=== PATIENT | male | born 1975 | race Caucasian/White ===

== ENCOUNTER → 2025-01-15 | Outpatient (CLI) | payer BC, SELFPAY ==
--- OUTSIDE RECORDS SUMMARY | 2025-01-15 09:18 | XMS RPT_ITS | CCD ---
Author Organization [facility] Care Team Providers Care Architecture Technician Name Role Phone ELLIOTT CUI Unavailable Unavailable Hiram Sykes MD Primary Care Provider [phone] Genia Rothman MD, Denzel Unavailable Onel BENAVIDES, Hiram Primary Care Provider Genia Rothman MD, Denzel Unavailable Onel BENAVIDES, Hiram Primary Care Provider [phone] Hiram Sykes MD Primary Care Provider Genia Rothman MD, Denzel Unavailable [facility], Enmanuel Unavailable Genia Rothman MD, Denzel Unavailable Genia Rothman MD, Denzel Unavailable HIRAM SYKES Primary Care Unavailable ONEL, HIRAM Primary Care Unavailable ONEL, HIRAM Primary Care Unavailable MARGIE SMITH Attending UnavailMARGIE Patrick Referring Unavailmandie e HIRAM SYKES Primary Care Unavailable BRIAN HAWLEY Admitting Unavailable BRIAN HAWLEY Attending Unavailable ONEL, HIRAM Primary Care Unavailable BRIAN HAWLEY Referring Unavailable HIRAM SYKES Primary Care Unavailable ONEL, HIRAM Primary Care Unavailable BRIAN HAWLEY Referring Unavailable NABILAUPMIKEY, HIRAM Primary Care Unavailable NABILAUPMIKEY, HIRAM Primary Care Unavailable BRIAN HAWLEY Referring Unavailable NABILAUPMIKEY, HIRAM Primary Care Unavailable ABBYBRIAN MORRISON Referring Unavailable BRIAN HAWLEY Attending Unavailable NABILAUPMIKEY, HIRAM Primary Care Unavailable ABYB, BRIAN Referring Unavailable KRUPITZER, HIRAM Primary Care Unavailable ABBY, BRIAN Referring Unavailable KRUPITZER, HIRAM Primary Care Unavailable ABBY, BRIAN Referring Unavailable ABBY, BRIAN Referring Unavailable KRUPITZER, HIRAM Primary Care Unavailable NO, PHYSICIAN Primary Care Unavailable SHARYN DANIELLE Attending Unavailable Hailey Zambrano MD Primary Care Provider CINDA BRENNAN Attending Unavailable JOLLIFF, HAILEY S Primary Care Unavailable JOLLIFF, HAILEY S Primary Care Unavailable JOLLIFF, HAILEY S Primary Care Unavailable PRATIMA REARDON Attending Unavailable PRATIMA REARDON Referring Unavailable ESTEPHANIA, AMNA Referring Unavailable JOLLIFF, HAILEY S Primary Care Unavailable JOLLIFF, HAILEY S Primary Care Unavailable PRATIMA REARDON Referring Unavailable Amelia BENAVIDES, Dr. Lacy Primary Care Provider [phone] Dr. Bambi Cisneros MD Referring Provider [facility] Attending Provider [phone] Amelia, Bambi Referring Unavailable Jannet Flannery Attending Unavailable [place], Bambi Primary Care Unavailable [place], Bambi Primary Care Unavailable Jannet Flannery Attending Unavailable [place], Bambi Referring Unavailable [place], Bambi Primary Care Unavailable Jannet Flannery Attending Unavailable [place], Bambi Referring Unavailable [place], Bambi Referring Unavailable Jannet Flannery Attending Unavailable [place], Bambi Primary Care Unavailable [place], Bambi Referring Unavailable Jannet Flannery Attending Unavailable Amelia, Bambi Primary Care Unavailable Allergies Allergy Classification Reported Allergen(s) Allergy Type Date of Onset Reaction(s) Facility (20 sources) Amoxicillin; Translations: [AMOXICILLIN] Drug Allergy 5 Unknown, Hives [facility] Other [place] [facility] (20 sources) metFORMIN; Translations: [METFORMIN] Drug Allergy 0 GI Upset [facility] Work Phone: Medications Current Medications Medication Drug Class(es) Dates Sig (Normalized) Sig (Original) aspirin 81 mg chewable tablet (20 sources) Platelet Aggregation Inhibitor, Nonsteroidal Anti-inflammatory Drug Start: 12-11-2022 take 1 tablet by mouth once daily Aspirin 81 mg tablet,chewable Active 81 mg PO DAILY December 11, 2022 12:00am Start: 11-20-2015 take 1 tablet by henri th once daily aspirin, enteric coated (ECOTRIN LOW STRENGTH) 81 mg EC tablet Take 1 tablet by mouth once daily. 0 11/20/2015 Active Comment on above: Take 1 tablet by henri th once daily. CPAP (20 sources) Start: 10-12-2019 CPAP Indicatio ns: RENETTA on CPAP BiPAP supplies including large mask, tubing and headgear for BiPAP Auto Remstar F10 machine 1 Device 10/12/2019 Active Start: 10-12-2019 CPAP Indicatio ns: RENETTA on CPAP BiPAP supplies including large mask, tubing and headgear for BiPAP Auto Remstar F10 machine 1 Device 0 10/12/2019 Active Comment on above: BiPAP supplies inclu ding large mask, tubing and headgear for BiPAP Auto Remstar F10 machine glimepiride 4 mg oral tablet (20 sources) Sulfonylurea Start: 3 End: take 1 tablet by mouth twice daily Glimepiride 4 mg tablet Active 4 mg PO TWICE A DAY 180 October 11, 2024 8:21am Start: 05-21-2021 End: 03-05-2022 take 1 tablet by mouth twice daily at mealtime glimepiride (AMARYL) 4 mg tablet Take 1 tablet by mouth twice daily with meals. 180 tablet 3 03/05/2022 Active take 1 tablet by henri th once daily before breakfast glimepiride (AMARYL) 2 MG tablet Take 1 tablet by mouth every morning (before breakfast) Active Comment on above: Take 1 tablet by henri th twice daily with meals. Insulin Degludec (Tresiba Flextouch U-100) 100 unit/mL (3 mL) insulin pen (3 sources) Start: 04-26-2024 Insulin Degludec (Tresiba Flextouch U-100) 100 unit/mL (3 mL) insulin pen Active 30 U SC AT BEDTIME April 26, 2024 9:39am Start: 03-26-2024 End: 04-26-2024 Insulin Degludec (Tresiba Fl extouch U-100) 100 unit/mL (3 mL) insulin pen Discontinued 15 U SC AT BEDTIME March 26, 2024 1:56pm April 26, 2024 9:40am Start: 06-16-2023 End: 03-26-2024 Insulin Degludec (Tresiba Fl extouch U-100) 100 unit/mL (3 mL) insulin pen Discontinued 15 U SC AT BEDTIME June 16, 2023 1:00am March 26, 2024 1:57pm 3 ml insulin glargine 100 unt/ml pen injector (3 sources) Insulin Analog Start: 08-30-2023 inject 18 [IU] by subcutaneous injection once daily at bedtime insulin glargine 100 unit/mL (3 mL) Inject 18 Units subcutaneously daily at bedtime. 08/30/2023 Active Comment on above: Inject 18 Units subcutaneously daily at bedtime. 3 ml insulin lispro 100 unt/ml pen injector (7 sources) Insulin Analog Start: 04-26-2024 End: 10-14-2024 Insulin Lispro (Humalog Kwikpen Insulin) 100 unit/mL insulin pen Active 40 U SC THREE TIMES A DAY October 14, 2024 11:57am Start: 08-30-2023 inject 6 [IU] by sub cutaneous injection before mealtime insulin lispro (HUMALOG U-100 INSULIN) 100 unit/mL injection 6 Units subcutaneously before meals. Give subcutaneous. + ISS 08/30/2023 Active Start: 08-28-2023 End: 04-26-2024 Insulin Lispro (Humalog Kwik pen Insulin) 100 unit/mL insulin pen Discontinued 20 U SC THREE TIMES A DAY March 26, 2024 1:56pm April 26, 2024 9:40am Comment on above: 6 Units subcutaneous ly before meals. Give subcutaneous. + ISS lisinopril 10 mg oral tablet (20 sources) Angiotensin Converting Enzyme Inhibitor Start: take 1 tablet by mouth twice daily Lisinopril 10 mg tablet Active 10 mg PO TWICE A DAY April 26, 2024 9:38am Start: 12-11-2022 End: 04-26-2024 take 1 tablet by mouth once daily Lisinopril 10 mg tablet Discontinued 10 mg PO DAILY March 26, 2024 1:56pm April 26, 2024 9:38am Start: 05-21-2021 End: 03-05-2022 take 1 tablet by mouth once daily lisinopril (ZESTRIL, PRINIVIL) 10 mg tablet Indications: Coronary artery disease involving lyt[place] coronary artery of lytton heart without angina pectoris Take 1 tablet by mouth once daily. 90 tablet 3 03/05/2022 Active Comment on above: Take 1 tablet by henri th once daily. take 1 tablet by henri th every day metFORMIN hydrochloride 500 mg oral tablet (20 sources) Biguanide Start: 12-11-2022 End: 07-29-2024 take 1 tablet by mouth twice daily Metformin 500 mg tablet Active 500 mg PO TWICE A DAY July 29, 2024 8:55am Start: 09-18-2022 take 1 tablet by henri th twice daily at mealtime, then take 4 tablets by mouth once daily metFORMIN ER (GLUCOPHAGE XR) 500 mg 24 hr tablet Take 1 tablet by mouth twice daily with meals. May gradually increase up to 4 tablets daily as tolerated. 180 tablet 3 09/18/2022 Active Start: 03-12-2022 End: 09-18-2022 take 1 tablet by mouth once daily metFORMIN ER (GLUCOPHAGE XR) 500 mg 24 hr tablet Take 1 tablet by mouth once daily. 90 tablet 3 08/20/2022 09/18/2022 Discontinued Comment on above: Take 1 tablet daily for 3-4 days. If tolerating well, gradually increase dose by 1 tablet every 3-4 days for goal dose of 4 tablets per day. Take with food. Take 1 tablet by henri th once daily. Take 500 mg by mouth daily with breakfast. Take 1 tablet by henri th twice daily with meals. May gradually increase up to 4 tablets daily as tolerated. rosuvastatin calcium 10 mg oral tablet (2 sources) HMG-CoA Reductase Inhibitor Start: 4 End: take 1 tablet by mouth once daily Rosuvastatin 10 mg tablet Active 10 mg PO daily October 14, 2024 11:55am Semaglutide (2 sources) Start: 5 Semaglutide (Ozempic) 0.25 mg or 0.5 mg (2 mg/3 mL) pen injector Active 0.5 mg SC EVERY WEEK July 29, 2024 12:00am Start: 12-11-2022 End: 03-13-2023 Semaglutide (Ozempic) 0.25 m g or 0.5 mg (2 mg/3 mL) pen injector Discontinued 0.5 mg SC EVERY WEEK 3 December 11, 2022 12:00am March 13, 2023 8:49am Completed/Discontinued Medications Medication Drug Class(es) Dates Sig (Normalized) Sig (Original) acetaminophen 500 mg oral tablet (2 sources) Start: 05-14-2024 End: 05-14-2024 take 4000 mg by mouth every twenty-four hours 1,000 mg, Oral, ONCE, 1 dose, On Fri05/14/24 at 0846, Maximum dose of acetaminophen is 4000 mg from all sources in 24 hours. Start: 08-28-2023 take 1 tablet by henri th once as needed Acetaminophen (Tylenol) 325 mg tablet Active 325 mg PO ONCE as needed August 28, 2023 12:00am acetaminophen 500 mg / diphenhydrAMINE hydrochloride 25 mg oral tablet (1 source) Histamine-1 Receptor Antagonist Start: 12-11-2022 End: 08-28-2023 Diphenhydramine-Acetaminophe n (Tylenol Pm Extra Strength) 25-500 mg tablet Discontinued 1 {tbl} PO AT BEDTIME as needed December 11, 2022 12:00am August 28, 2023 9:35am atorvastatin 20 mg oral tablet (20 sources) HMG-CoA Reductase Inhibitor Start: 05-21-2021 End: 04-26-2024 take 1 tablet by mouth once daily Atorvastatin 20 mg tablet Discontinued 20 mg PO DAILY 90 March 26, 2024 1:56pm April 26, 2024 9:31am Comment on above: Take 1 tablet by henri th once daily. take 1 tablet by henri th every day atropine sulfate 0.025 mg / diphenoxylate hydrochloride 2.5 mg oral tablet (13 sources) Anticholinergic , Cholinergic Muscarinic Antagonist, Antidiarrheal Start: 09-11-2022 End: 04-21-2023 take 1 tablet by mouth every six hours as needed for diarrhea and diarrhea diphenoxylate-atropine (LOMOTIL) 2.5-0.025 mg per tablet Indications: Diarrhea, unspecified type Take 1 tablet by mouth four times daily as needed for diarrhea for up to 30 days. 10 tablet 0 09/11/2022 04/21/2023 Discontinued Comment on above: Take 1 tablet by henri th four times daily as needed for diarrhea for up to 30 days. Blood-Glucose Meter (ONETOUCH ULTRAMINI) monitoring kit (20 sources) Start: 10-27-2019 End: 04-21-2023 Blood-Glucose Meter (ONETOUC H ULTRAMINI) monitoring kit Use to check blood sugars twice daily or as directed. 1 Each 0 10/27/2019 04/21/2023 Discontinued Start: 10-27-2019 Blood-Glucose Meter (ONETOUCH ULTRAMINI) monitoring kit Use to check blood sugars twice daily or as directed. 1 Each 0 10/27/2019 Active Comment on above: Use to check blood s ugars twice daily or as directed. Blood-Glucose Sensor (Dexcom G7 Sensor) device (1 source) Start: 3 End: 3 Blood-Glucose Sensor (Dexcom G7 Sensor) device Discontinued 0 .Route 3 December 11, 2022 12:00am March 13, 2023 8:47am 1 sensor q 10 days Blood-Glucose Sensor (Freestyle Ravi 3 Sensor) device (1 source) Start: 3 End: 4 Blood-Glucose Sensor (Freestyle Ravi 3 Sensor) device Discontinued 0 .Route 2 March 13, 2023 12:00am August 28, 2023 4:24pm 1 sensor q 14 days cetirizine hydrochloride 10 mg oral tablet (20 sources) Histamine-1 Receptor Antagonist Start: 6 End: 4 take 1 tablet by mouth once daily as needed Cetirizine (Zyrtec) 10 mg tablet Discontinued 10 mg PO DAILY as needed December 11, 2022 12:00am November 06, 2023 8:30am Comment on above: Take 1 tablet by henri th once daily. 0.5 ml dulaglutide 3 mg/ml auto-injector (14 sources) GLP-1 Receptor Agonist Start: 3 End: 3 Dulaglutide (Trulicity) 1.5 mg/0.5 mL pen injector Discontinued 1.5 mg SC EVERY WEEK December 11, 2022 12:00am March 13, 2023 8:49am Start: 07-16-2022 End: 08-20-2022 inject 1.5 mg by subcutaneous injection every week dulaglutide (TRULICITY) 1.5 mg/0.5 mL pen injector Inject 1.5 mg subcutaneously one time a week. 2 mL 5 07/16/2022 08/20/2022 Discontinued Start: 05-21-2022 End: 07-16-2022 inject 0.75 mg by subcutaneous injection every week dulaglutide (TRULICITY) 0.75 mg/0.5 mL pen injector Inject 0.75 mg subcutaneously one time a week. 2 mL 3 05/21/2022 07/16/2022 Discontinued Comment on above: Inject 0.75 mg subcu taneously one time a week. Inject 1.5 mg subcut aneously one time a week. dulaglutide (TRULICITY) 3 mg/0.5 mL pen injector (4 sources) Start: End: inject 3 mg by subcutaneous injection every week dulaglutide (TRULICITY) 3 mg/0.5 mL pen injector Inject 3 mg subcutaneously one time a week. 2 mL 3 08/29/2022 09/18/2022 Discontinued (Side Effects) Start: 08-29-2022 End: 09-28-2022 inject 3 mg by subcutaneous injection every week dulaglutide (TRULICITY) 3 mg/0.5 mL pen injector Inject 3 mg subcutaneously one time a week. 2 mL 3 08/29/2022 09/28/2022 Active Comment on above: Inject 3 mg subcutan eously one time a week. empagliflozin 25 mg oral tablet (1 source) Sodium-Glucose Cotransporter 2 Inhibitor Start: 03-13-20 End: 08-28-19 take 1 tablet by mouth once daily Empagliflozin (Jardiance) 25 mg tablet Discontinued 25 mg PO DAILY March 13, 2023 12:00am August 28, 2023 4:24pm 3 ml insulin detemir 100 unt/ml pen injector (16 sources) Insulin Analog Start: 12-12-19 End: 08-30-19 LEVEMIR FLEXPEN 100 unit/mL (3 mL) injection pen 15 units once daily at nighttime 0 12/11/2022 08/30/2023 Discontinued Comment on above: 15 units once daily at nighttime Insulin Detemir U-100 (Levemir Flexpen) 100 unit/mL (3 mL) insulin pen (2 sources) Start: 04-17-20 End: 06-16-19 Insulin Detemir U-100 (Levemir Flexpen) 100 unit/mL (3 mL) insulin pen Discontinued 15 U SC AT BEDTIME April 17, 2023 11:54am June 16, 2023 9:26am Start: 12-11-2022 End: 04-17-2023 Insulin Detemir U-100 (Levem ir Flexpen) 100 unit/mL (3 mL) insulin pen Discontinued 15 U SC AT BEDTIME December 11, 2022 12:00am April 17, 2023 11:54am iopamidol (ISOVUE-M 200) 41 % injection (1 source) Start: 06-14-2024 End: 06-14-2024 PRN, Starting on Fri06/14/24 at 1110, Until Fri06/14/24 at 1112, Intra-op 10 ml lidocaine hydrochloride 20 mg/ml injection (1 source) Antiarrhythmic, Amide Local Anesthetic Start: 06-14-2024 End: 06-14-2024 PRN, Starting on Fri06/14/24 at 1103, Until Fri06/14/24 at 1110, Intra-op OZEMPIC 0.25 mg or 0.5 mg (2 mg/3 mL) pen (16 sources) Start: 12-11-2022 End: 08-30-2023 OZEMPIC 0.25 mg or 0.5 mg (2 mg/3 mL) pen 0.5 mg once weekly 0 12/11/2022 08/30/2023 Discontinued Start: 12-11-2022 OZEMPIC 0.25 m g or 0.5 mg (2 mg/3 mL) pen 0.5 mg once weekly 0 12/11/2022 Active Comment on above: 0.5 mg once weekly semaglutide 7 mg oral tablet (9 sources) Start: 04-25-2023 End: 08-28-2023 take 1 tablet by mouth once daily Semaglutide (Rybelsus) 7 mg tablet Discontinued 7 mg PO DAILY April 25, 2023 1:00am August 28, 2023 4:24pm Start: 03-05-2022 inject 0.25 mg by liriano bcutaneous injection every week, then inject 0.5 mg by subcutaneous injection every week semaglutide (OZEMPIC) 0.25 mg or 0.5 mg(2 mg/1.5 mL) pen Indications: Uncontrolled type 2 diabetes mellitus with hyperglycemia (HCC) Inject 0.25 mg subcutaneously one time a week. For 1 month, then increase to 0.5 mg subcutaneously weekly 1 Each 2 03/05/2022 Active Start: 05-21-2021 End: 10-09-2021 inject 1 mg by subcutaneous injection every week semaglutide (OZEMPIC) 1 mg/dose (2 mg/1.5 mL) pen injector Inject 1 mg subcutaneously one time a week. 4.5 mL 3 05/21/2021 10/09/2021 Discontinued Comment on above: Inject 1 mg subcutan eously one time a week. Inject 0.25 mg subcu taneously one time a week. For 1 month, then increase to 0.5 mg subcutaneously weekly Semaglutide (1 source) Start: 03-13-2023 End: 04-25-2023 Semaglutide (Ozempic) 1 mg/dose (4 mg/3 mL) pen injector Discontinued 1 mg SC EVERY WEEK 3 March 13, 2023 12:00am April 25, 2023 4:19pm 5 ml sodium chloride 9 mg/ml injection (1 source) Start: 06-14-2024 End: 06-14-2024 PRN, Starting on Fri06/14/24 at 1113, Until Fri06/14/24 at 1112, Intra-op Start: 06-14-2024 End: 06-14-2024 PRN, Starting on Fri06/14/24 at 1113, Until Fri06/14/24 at 1112, Intra-op Problems Active Problems Problem Classification Problem Date Documented Da te Episodic/Chronic Cancer of kidney and renal pelvis (20 sources) Malignant tumor of kidney; Translations: [Malignant neoplasm of left kidney, except renal pelvis] Onset: 01-22-2016 01-22-2016 Chronic Conduction disorders (20 sources) H/O: cardiac pacemaker in situ; Translations: [Presence of cardiac pacemaker] Chronic Coronary atherosclerosis and other heart disease (20 sources) Coronary atherosclerosis; Translations: [Atherosclerotic heart disease of l[place] coronary artery without angina pectoris] Onset: 01-07-2018 Chronic Comment on above: x4 Diabetes mellitus with complications (20 sources) Type II diabetes mellitus uncontrolled; Translations: [Type 2 diabetes mellitus with hyperglycemia] Onset: 12-08-2015 Chronic Diabetes mellitus without complication (3 sources) Diabetes mellitus; Translations: [Type 2 diabetes mellitus without complications] Onset: 04-26-2024 12-11-2022 Chronic Disorders of lipid metabolism (2 sources) Hypercholesterolemi a; Translations: [Pure hypercholesterolemi a, unspecified] 04-28-2024 Chronic E Codes: Fall (2 sources) Fall; Translations: [Unspecified fall, initial encounter] Onset: 05-14-2024 05-14-2024 Episodic Essential hypertension (2 sources) Hypertensive disorder; Translations: [Essential (primary) hypertension] 03-13-2023 Chronic Other aftercare (1 source) Patient encounter status; Translations: [Other terminal operator (current) drug therapy] Episodic Other circulatory disease (20 sources) H/O: atrial fibrillation; Translations: [Personal history of other diseases of the circulatory system] Episodic Other gastrointestinal disorders (1 source) Diarrhea; Translations: [Diarrhea, unspecified] Episodic Other injuries and conditions due to external causes (2 sources) Food in esophagus causing other injury, initial encounter; Translations: [Food in esophagus causing other injury, initial encounter] Onset: 09-04-2023 Episodic Other injuries and conditions due to external causes (1 source) Injury of left shoulder; Translations: [Unspecified injury of left shoulder and upper arm, initial encounter] 05-14-2024 Episodic Other injuries and conditions due to external causes (1 source) Unspecified injury of left shoulder and upper arm, initial encounter; Translations: [Unspecified injury of left shoulder and upper arm, initial encounter] Onset: 05-14-2024 Episodic Other liver diseases (20 sources) Steatosis of liver; Translations: [Fatty (change of) liver, not elsewhere classified] Onset: 11-29-2015 11-29-2015 Chronic Other lower respiratory disease (1 source) Cough; Translations: [Cough] Onset: 04-02-2018 Episodic Other lower respiratory disease (1 source) Dyspnea, unspecified; Translations: [Dyspnea, unspecified] Onset: 04-02-2018 Episodic Other lower respiratory disease (1 source) Wheezing; Translations: [Wheezing] Onset: 04-02-2018 Episodic Other lower respiratory disease (2 sources) Cough; Translations: [Cough] 07-29-2024 Episodic Other nutritional; endocrine; and metabolic disorders (20 sources) Body mass index 40+ - severely obese; Translations: [Morbid (severe) obesity due to excess calories] Onset: 08-12-2017 08-12-2017 Chronic Other nutritional; endocrine; and metabolic disorders (2 sources) Obesity; Translations: [Obesity, unspecified] 12-11-2022 Chronic Other upper respiratory disease (1 source) Nasal congestion; Translations: [Nasal congestion] Onset: 04-02-2018 Episodic Residual codes; unclassified (20 sources) Obstructive sleep apnea syndrome; Translations: [Obstructive sleep apnea (adult) (pediatric)] Chronic Sprains and strains (4 sources) Strain of muscle(s) and tendon(s) of the rotator cuff of left shoulder, initial encounter; Translations: [Rotator cuff (capsule) sprain] Onset: 06-08-2024 06-14-2024 Episodic Unclassified (1 source) Other persistent atrial fibrillation; Translations: [Persistent atrial fibrillation (HCC)] Onset: 05-02-2023 Unclassified (1 source) Food entering into or through a natural orifice, initial encounter; Translations: [Food entering into or through a natural orifice, initial encounter] Onset: 09-04-2023 Viral infection (1 source) Viral disease; Translations: [Viral infection, unspecified] Episodic Past or Other Problems Problem Classification Problem Date Documented Da te Episodic/Chronic Genitourinary symptoms and ill-defined conditions (20 sources) Microscopic hematuria; Translations: [Other microscopic hematuria] Onset: 12-25-2015 12-25-2015 Episodic Neoplasms of unspecified nature or uncertain behavior (2 sources) Neoplasm of uncertain behavior of left kidney; Translations: [Neoplasm of uncertain behavior of left kidney] Onset: 12-25-2015 Resolved: 01-22-2016 01-22-2016 Episodic Other diseases of kidney and ureters (2 sources) Renal mass; Translations: [Other specified disorders of kidney and ureter] Resolved: 01-22-2016 01-22-2016 Chronic Other screening for suspected conditions (not mental disorders or infectious disease) (20 sources) Decreased testosterone level ; Translations: [Other specified abnormal findings of blood chemistry] Onset: 12-25-2015 Resolved: 02-13-2016 11-24-2018 Episodic Residual codes; unclassified (20 sources) History of nephrectomy; Translations: [Acquired absence of kidney] Onset: 03-16-2016 03-16-2016 Episodic Syncope (7 sources) Vasovagal syncope; Translations: [Syncope and collapse] Onset: 04-21-2023 Episodic Unclassified (1 source) Food entering into or through a natural orifice, initial encounter; Translations: [Food entering into or through a natural orifice, initial encounter] Onset: 09-04-2023 Results Test Name Value Interpretation Reference Range Facility Endocrinology Visit Reporton 11-04-2024 Endocrinology Visit Report [facility] [address] [place] [address] OFFICE VISIT Date of Service: 11/04/24 MR#: [id number] Acct: [id number] Name: MARGIE HAYNES Rep #: [id number] : 1975 Provider: JOSE ALEJANDRO smith Age/Sex: 49/M [place] [facility] [place] Status: Signed Intake Vital Signs 07/29/24 08:18 11/04/24 08:36 Height 5 ft 8 in 5 ft 8 in Weight: 283 lb 8 oz 271 lb 4 oz BMI 43.1 41.2 BP 148/99 H 135/87 H Blood Pressure Location Rt brachial Rt brachial Position Sitting Sitting Pulse 81 85 Pulse Source Monitor Monitor Pulse Oximetry (%) 96 96 Oxygen Delivery Method room air room air Intake Visit Reasons: 3 M FU Chief Complaint: f/u diabetes Is patient in pain?: No Allergies amoxicillin Allergy (Intermediate, Verified 11/04/24 08:40) Rash Medications ???Medication ???Instructions ???Recorded ???Confirmed ???Type aspirin 81 mg chewable tablet 81 mg PO DAILY 12/11/22 11/04/24 H istory pen needle, diabetic 32 gauge x #100 ea 12/11/22 11/04/24 Rx 5/32 (BD Ultra-Fine Sanna Pen Needle) acetaminophen 325 mg tablet 325 mg PO ONCE PRN 08/28/23 History (Tylenol) blood sugar diagnostic (OneTouch #100 ea 08/28/23 11/04/24 Rx Ultra Test strips) cetirizine 10 mg tablet (Zyrtec) 10 mg PO DAILY 11/06/23 11/04/24 H istory insulin degludec 100 unit/mL (3 30 unit (0.3 mL) subcut QHS #27 mL 04/26/24 11/04/24 Rx mL) subcutaneous pen (Tresiba FlexTouch U-100 insulin) lisinopril 10 mg tablet 10 mg PO BID #180 tabs 04/26/24 Rx pen needle, diabetic 32 gauge x #100 ea 07/20/24 11/04/24 Rx 5/32 (BD Ultra-Fine Sanna Pen Needle) metformin 500 mg tablet 500 mg PO BID #180 tabs 07/29/24 0 11/04/24 Rx semaglutide 0.25 mg or 0.5 mg (2 0.5 mg (0.736 mL) subcut QWEEK #3 07/29/24 11/04/24 Rx mg/3 mL) subcutaneous pen injector mL (Ozempic) glimepiride 4 mg tablet 4 mg PO BID #180 tabs 10/11/24 Rx insulin lispro 100 unit/mL 40 unit (0.4 mL) subcut TID #105 m L 10/14/24 11/04/24 Rx subcutaneous pen (Humalog KwikPen (U-100) Insulin) rosuvastatin 10 mg tablet 10 mg PO QDAY #30 tabs 10/14/24 Rx PFSH Medical History Seasonal allergies History of kidney cancer Surgical History H/O tympanostomy H/O adenoidectomy History of nephrectomy History of permanent cardiac pacemaker placement History of appendectomy Family History Mother Asthma Cervical cancer Ovarian cancer Cancer intestinal Father Parkinson disease Grandmother Diabetes Hypertension Cancer pancreatic Grandfather Cancer Prostate Brother Hypertension Diabetes CVA (cerebral vascular accident) Uncle Diabetes Grandmother Cancer leukemia Grandfather Myocardial infarction Uncle Diabetes Sister Cancer bone cancer Social History adopted: No household members: spouse number of children: 3 current occupational status: employed current occupation: [employer] pets and animals: Yes pets and animals: cat(s) Smoking Status: Never smoker Electronic Cigarette Use: not used alcohol intake: current alcohol intake frequency: a few times a month substance use type: does not use diet: gluten free caffeine: Yes (4) Type: carbonated beverages and coffee what type of physical activity do you participate in: none frequency: daily seatbelt use: always do you feel safe at home: Yes HPI HPI Chief Complaint: f/u diabetes Details: MARGIE HAYNES, is a 49 M who presents to the office today for evaluation and management of diabetes. A1C today is 10.1%, increased from 07/29/24 at 9.6%. He has lost 12 lbs since that time. He has significantly reduced his food volume. He is upset that his blood sugars have not improved despite his diet. Currently taking Tresiba 24 u once daily and Humalog 24 u TIDCM +SSI; however, he is typically is only eating one meal a day and is not taking Humalog outside of that. He is not addressing elevations. Additionally he is taking glimepiride 4 mg BID and metformin 500 mg BID with food. He continues to have issues with diarrhea with metformin use. He stopped using his CGM as it was all over the place. He would compare CGM readings to finger stick readings in real time. He states I'm about ready to just give up. He admits that he has a lot of anger regarding his diabetes, this is also affecting his marriage. He is upset that he is expected to check his blood sugar 4+ x/day. He is upset that his insurance is not covering more of his diabetic medications/supplies. (more content not included)... Normal [facility] Endocrinology Visit Reporton 07-29-2024 Endocrinology Visit Report [facility] [address] [place] [address] OFFICE VISIT Date of Service: 07/29/24 MR#: [id number] Acct: [id number] Name: MARGIE HAYNES Rep #: [id number] : 1975 Provider: JOSE ALEJANDRO smith Age/Sex: 49/M Location: [facility] Status: Signed Intake Vital Signs 04/26/24 08:09 07/29/24 08:18 Height 5 ft 8 in 5 ft 8 in Weight: 280 lb 283 lb 8 oz BMI 42.5 43.1 BP 139/91 H 148/99 H Blood Pressure Location Lt brachial Rt brachial Position Sitting Sitting Pulse 75 81 Pulse Source Monitor Monitor Pulse Oximetry (%) 95 96 Oxygen Delivery Method room air room air Intake Visit Reasons: 3 M FU Chief Complaint: f/u diabetes Allergies amoxicillin Allergy (Intermediate, Verified 07/29/24 08:22) Rash Medications ???Medication ???Instructions ???Recorded ???Confirmed ???Type aspirin 81 mg chewable tablet 81 mg PO DAILY 12/11/22 07/29/24 H istory pen needle, diabetic 32 gauge x #100 ea 12/11/22 07/29/24 Rx 5/32 (BD Ultra-Fine Sanna Pen Needle) acetaminophen 325 mg tablet 325 mg PO ONCE PRN 08/28/23 History (Tylenol) blood sugar diagnostic (OneTouch #100 ea 08/28/23 07/29/24 Rx Ultra Test strips) cetirizine 10 mg tablet (Zyrtec) 10 mg PO DAILY 11/06/23 07/29/24 H istory glimepiride 4 mg tablet 4 mg PO BID #180 tabs 03/26/24 Rx insulin degludec 100 unit/mL (3 30 unit (0.3 mL) subcut QHS #27 mL 04/26/24 07/29/24 Rx mL) subcutaneous pen (Tresiba FlexTouch U-100 insulin) insulin lispro 100 unit/mL 40 unit (0.4 mL) subcut TID #108 m L 04/26/24 07/29/24 Rx subcutaneous pen (Humalog KwikPen (U-100) Insulin) lisinopril 10 mg tablet 10 mg PO BID #180 tabs 04/26/24 Rx rosuvastatin 10 mg tablet 10 mg PO QDAY #30 tabs 04/26/24 Rx pen needle, diabetic 32 gauge x #100 ea 07/20/24 07/29/24 Rx 5/32 (BD Ultra-Fine Sanna Pen Needle) metformin 500 mg tablet 500 mg PO BID #180 tabs 07/29/24 0 07/29/24 Rx semaglutide 0.25 mg or 0.5 mg (2 0.5 mg (0.736 mL) subcut QWEEK #3 07/29/24 07/29/24 Rx mg/3 mL) subcutaneous pen injector mL (Ozempic) PFSH Medical History Seasonal allergies History of kidney cancer Surgical History H/O tympanostomy H/O adenoidectomy History of nephrectomy History of permanent cardiac pacemaker placement History of appendectomy Family History Mother Asthma Cervical cancer Ovarian cancer Cancer intestinal Father Parkinson disease Grandmother Diabetes Hypertension Cancer pancreatic Grandfather Cancer Prostate Brother Hypertension Diabetes CVA (cerebral vascular accident) Uncle Diabetes Grandmother Cancer leukemia Grandfather Myocardial infarction Uncle Diabetes Sister Cancer bone cancer Social History adopted: No household members: spouse number of children: 3 current occupational status: employed current occupation: [employer] pets and animals: Yes pets and animals: cat(s) Smoking Status: Never smoker Electronic Cigarette Use: not used alcohol intake: current alcohol intake frequency: a few times a month substance use type: does not use diet: gluten free caffeine: Yes (4) Type: carbonated beverages and coffee what type of physical activity do you participate in: none frequency: daily seatbelt use: always do you feel safe at home: Yes HPI HPI Chief Complaint: f/u diabetes Details: MARGIE HAYNES, is a 49 M who presents to the office today for evaluation and management of diabetes. A1C today is 9.6%, improved from 04/26/24 at 11.3%. He has gained 3 lbs since that time. He was on medrol dose pack in May d/t shoulder injury. At his last appt we discussed his frustrations about diabetes management and that he has not been participating d/t this. During his last appt he was instructed to increase frequency of blood sugar checks, increase Tresiba to 20 u once daily, increase Humalog to 20 u TIDCM +SSI, continue metformin 500 mg BID with food, and glimepiride 4 mg BID. He reports compliance with medications listed above, though he typically will not take Humalog lunch dose as he is at work. He denies any blood sugars <70. He becomes symptomatic in low 100's. He has made some dietary improvements. BP today is 148/99, increased from 04/26/24 at 139/91. At that time he was instructed to increase lisinopril to 10 mg BID, he has not done so. He complained of significant myalgias with use of atorvastatin, he was switched to rosuvastatin 10 mg once daily at that time. Re (more content not included)... Normal [facility] Laboratory - Hematology and Cell countsOrdered By: Jannet Flannery on 07-29-2024 HbA1c (Bld) [Mass fraction] 9.6 % High 4.2-6.3 [facility] CT Shoulder - left BELLE ovalles 06-15-2024 1. Mild acromioclavi cular hypertrophic changes. 2. No contrast extending into the subacromial/subdeltoid recess, excluding a large full-thickness rotator cuff tear. 3. Mild muscular volume loss. 4. Cardiomegaly. [facility] RADIOLOGY EXAMINATION: CT OF THE LEFT SHOULDER WITHOUT CONTRAST 06/14/2024 11:38 am TECHNIQUE: CT of the left shoulder was performed without the administration of intravenous contrast. Multiplanar reformatted images are provided for review. Automated exposure control, iterative reconstruction, and/or weight based adjustment of the mA/kV was utilized to reduce the radiation dose to as low as reasonably achievable. COMPARISON: None. HISTORY ORDERING SYSTEM PROVIDED HISTORY: Traumatic tear of left rotator cuff, unspecified tear extent, initial encounter TECHNOLOGIST PROVIDED HISTORY: Reason for exam:->CT of the left shoulder with arthrogram to assess for rotator cuff, patient not able to get MRI What reading provider will be dictating this exam?->CRC FINDINGS: Mild acromioclavicular hypertrophic changes. No acromial keel spur formation Gland glenohumeral space is maintained. There is no retroversion or significant bone loss. In intact superior biceps labral complex. Intact inferior glenohumeral ligament complex. No contrast is seen extending into the subacromial/subdeltoid recess, excluding a large full-thickness rotator cuff tear. Mild muscular volume loss The left chest wall is normal. The visualized left lung field is clear. Cardiomegaly is observed. A left anterior chest wall cardiac device is seen. The left axilla is normal. [facility] RADIOLOGY Carolyn Schaeffer MD - 06/15/2024 EXAMINATION: CT OF THE LEFT SHOULDER WITHOUT CONTRAST 06/14/2024 11:38 am TECHNIQUE: CT of the left shoulder was performed without the administration of intravenous contrast. Multiplanar reformatted images are provided for review. Automated exposure control, iterative reconstruction, and/or weight based adjustment of the mA/kV was utilized to reduce the radiation dose to as low as reasonably achievable. COMPARISON: None. HISTORY ORDERING SYSTEM PROVIDED HISTORY: Traumatic tear of left rotator cuff, unspecified tear extent, initial encounter TECHNOLOGIST PROVIDED HISTORY: Reason for exam:->CT of the left shoulder with arthrogram to assess for rotator cuff, patient not able to get MRI What reading provider will be dictating this exam?->CRC FINDINGS: Mild acromioclavicular hypertrophic changes. No acromial keel spur formation Gland glenohumeral space is maintained. There is no retroversion or significant bone loss. In intact superior biceps labral complex. Intact inferior glenohumeral ligament complex. No contrast is seen extending into the subacromial/subdeltoid recess, excluding a large full-thickness rotator cuff tear. Mild muscular volume loss The left chest wall is normal. The visualized left lung field is clear. Cardiomegaly is observed. A left anterior chest wall cardiac device is seen. The left axilla is normal. IMPRESSION: 1. Mild acromioclavicular hypertrophic changes. 2. No contrast extending into the subacromial/subdeltoid recess, excluding a large full-thickness rotator cuff tear. 3. Mild muscular volume loss. 4. Cardiomegaly. [facility] CT Shoulder - left WO contra stOrdered By: Carolyn Schaeffer on 06-15-2024 [facility] Work Phone: CBC With Platelet No Differe ntialon 06-14-2024 Erythrocyte distribution width (RBC) [Ratio] 12.9 % Normal 11.5-14.5 [facility] Comment on above: Performed By: #### C BCND #### [facility] [address] [place] [address] Hematocrit (Bld) [Volume fraction] 39.3 % Low 42.0-52.0 [facility] Comment on above: Performed By: #### C BCND #### [facility] [address] [place] [address] Hemoglobin (Bld) [Mass/Vol] 13.7 g/dL Low 14.0-18.0 [facility] Comment on above: Performed By: #### C BCND #### [facility] [address] [place] [address] MCH (RBC) [Entitic mass] 31.2 pg Normal 27.0-31.3 [facility] Comment on above: Performed By: #### C BCND #### [facility] [address] [place] [address] MCHC 34.9 % Normal 33.0-37.0 [facility] Comment on above: Performed By: #### C BCND #### [facility] [address] [place] [address] MCV (RBC) [Entitic vol] 89.5 fL Normal 79.0-92.2 [facility] Comment on above: Performed By: #### C BCND #### [facility] [address] [place] [address] Platelets (Bld) [#/Vol] 210 10*3/uL Normal 130-400 [facility] Comment on above: Performed By: #### C BCND #### [facility] [address] [place] [address] RBC (Bld) [#/Vol] 4.39 10*6/uL Low 4.70-6.10 [facility] Comment on above: Performed By: #### C BCND #### [facility] [address] [place] [address] WBC (Bld) [#/Vol] 7.1 10*3/uL Normal 4.8-10.8 [facility] Comment on above: Performed By: #### C BCND #### [facility] [address] [place] [address] CT SHOULDER LEFT WO CONTRAST on 06-14-2024 CT SHOULDER LEFT WO CONTRAST EXAMINATION: CT OF THE LEFT SHOULDER WITHOUT CONTRAST 06/14/2024 11:38 am TECHNIQUE: CT of the left shoulder was performed without the administration of intravenous contrast. Multiplanar reformatted images are provided for review. Automated exposure control, iterative reconstruction, and/or weight based adjustment of the mA/kV was utilized to reduce the radiation dose to as low as reasonably achievable. COMPARISON: None. HISTORY ORDERING SYSTEM PROVIDED HISTORY: Traumatic tear of left rotator cuff, unspecified tear extent, initial encounter TECHNOLOGIST PROVIDED HISTORY: Reason for exam:->CT of the left shoulder with arthrogram to assess for rotator cuff, patient not able to get MRI What reading provider will be dictating this exam?->CRC FINDINGS: Mild acromioclavicular hypertrophic changes. No acromial keel spur formation Gland glenohumeral space is maintained. There is no retroversion or significant bone loss. In intact superior biceps labral complex. Intact inferior glenohumeral ligament complex. No contrast is seen extending into the subacromial/subdeltoid recess, excluding a large full-thickness rotator cuff tear. Mild muscular volume loss The left chest wall is normal. The visualized left lung field is clear. Cardiomegaly is observed. A left anterior chest wall cardiac device is seen. The left axilla is normal. IMPRESSION: 1. Mild acromioclavicular hypertrophic changes. 2. No contrast extending into the subacromial/subdeltoid recess, excluding a large full-thickness rotator cuff tear. 3. Mild muscular volume loss. 4. Cardiomegaly. Interpreted by: Carolyn Schaeffer MD Signed by: Carolyn Schaeffer MD 06/15/24 Final result Normal [facility] CT Shoulder - left WO contra ston 06-14-2024 Radiology Study observation (narrative) Italo Rodriges [facility] IR ARTHR/ASP/INJ MAJOR JT/BU RSA LEFT WO USon 06-14-2024 Successful fluoroscopic-guided left shoulder contrast injection. A subsequent CT of the shoulder was obtained to be reported separately. [facility] RADIOLOGY EXAMINATION: FLUOROSCOPIC GUIDED arthrogram OF THE left shoulder 06/14/2024 10:49 am HISTORY: ORDERING SYSTEM PROVIDED HISTORY: Traumatic tear of left rotator cuff, unspecified tear extent, initial encounter TECHNOLOGIST PROVIDED HISTORY: What reading provider will be dictating this exam?->CRC FLUOROSCOPY DOSE AND TYPE: Radiation Exposure Index: Kerma mGy, 43 PROCEDURE: JAVA WEB APPLICATION DEVELOPER: Enoch Murphy MD Informed consent was obtained and universal protocol was observed. Sterile gowns, masks, hats and gloves utilized for maximal sterile barrier. Under standard sterile condition, local anesthesia with subcutaneous 2% lidocaine was administered. A skin entry site was selected with fluoroscopy. A 22 gauge spinal needle was inserted into the joint under fluoroscopic guidance. Approximately 12 cc ml of iodinated contrast was injected into the joint to confirm location. The needle was removed and a sterile bandage was placed. [facility] RADIOLOG[facility] Enoch Murphy MD - 06/14/2024 EXAMINATION: FLUOROSCOPIC GUIDED arthrogram OF THE left shoulder 06/14/2024 10:49 am HISTORY: ORDERING SYSTEM PROVIDED HISTORY: Traumatic tear of left rotator cuff, unspecified tear extent, initial encounter TECHNOLOGIST PROVIDED HISTORY: What reading provider will be dictating this exam?->CRC FLUOROSCOPY DOSE AND TYPE: Radiation Exposure Index: Kerma mGy, 43 PROCEDURE: JAVA WEB APPLICATION DEVELOPER: Enoch Murphy MD Informed consent was obtained and universal protocol was observed. Sterile gowns, masks, hats and gloves utilized for maximal sterile barrier. Under standard sterile condition, local anesthesia with subcutaneous 2% lidocaine was administered. A skin entry site was selected with fluoroscopy. A 22 gauge spinal needle was inserted into the joint under fluoroscopic guidance. Approximately 12 cc ml of iodinated contrast was injected into the joint to confirm location. The needle was removed and a sterile bandage was placed. IMPRESSION: Successful fluoroscopic-guided left shoulder contrast injection. A subsequent CT of the shoulder was obtained to be reported separately. [facility] IR ARTHR/ASP/INJ MAJOR JT/BURSA LEFT WO US EXAMINATION: FLUOROSCOPIC GUIDED arthrogram OF THE left shoulder 06/14/2024 10:49 am HISTORY: ORDERING SYSTEM PROVIDED HISTORY: Traumatic tear of left rotator cuff, unspecified tear extent, initial encounter TECHNOLOGIST PROVIDED HISTORY: What reading provider will be dictating this exam?->CRC FLUOROSCOPY DOSE AND TYPE: Radiation Exposure Index: Kerma mGy, 43 PROCEDURE: JAVA WEB APPLICATION DEVELOPER: Enoch Murphy MD Informed consent was obtained and universal protocol was observed. Sterile gowns, masks, hats and gloves utilized for maximal sterile barrier. Under standard sterile condition, local anesthesia with subcutaneous 2% lidocaine was administered. A skin entry site was selected with fluoroscopy. A 22 gauge spinal needle was inserted into the joint under fluoroscopic guidance. Approximately 12 cc ml of iodinated contrast was injected into the joint to confirm location. The needle was removed and a sterile bandage was placed. IMPRESSION: Successful fluoroscopic-guided left shoulder contrast injection. A subsequent CT of the shoulder was obtained to be reported separately. Interpreted by: Enoch Murphy MD Signed by: Enoch Murphy MD 06/14/24 Final result Normal [facility] Radiology Study observation (narrative) [facility] IR ARTHR/ASP/INJ MAJOR JT/BU RSA LEFT WO USOrdered By: Enoch Murphy on 06-14-2024 [facility] Work Phone: Prothrombin Timeon INR Coag (PPP) [Relative time] 1.0 {INR} Normal [facility] Comment on above: Performed By: #### P T #### [facility] [address] [place] [id number] PT Coag (PPP) [Time] 13.0 s Normal 12.3-14.9 [facility] Comment on above: Performed By: #### P T #### [facility] [address] [place] [address] XR SHOULDER LEFT (MIN 2 VIEW S)on 05-14-2024 XR SHOULDER LEFT (MIN 2 VIEWS) EXAMINATION: THREE XRAY VIEWS OF THE LEFT SHOULDER 05/14/2024 8:30 am COMPARISON: None. HISTORY: ORDERING SYSTEM PROVIDED HISTORY: fell at work TECHNOLOGIST PROVIDED HISTORY: Reason for exam:->fell at work What reading provider will be dictating this exam?->CRC FINDINGS: No fracture is seen. A left chest wall cardiac device is observed. IMPRESSION: No fracture . Interpreted by: Carolyn Schaeffer MD Signed by: Carolyn Schaeffer MD 05/14/24 Final result Normal [facility] XR Shoulder - left 2 Viewson 05-14-2024 No fracture . [facility] RADIOLOGY EXAMINATION: THREE XRAY VIEWS OF THE LEFT SHOULDER 05/14/2024 8:30 am COMPARISON: None. HISTORY: ORDERING SYSTEM PROVIDED HISTORY: fell at work TECHNOLOGIST PROVIDED HISTORY: Reason for exam:->fell at work What reading provider will be dictating this exam?->CRC FINDINGS: No fracture is seen. A left chest wall cardiac device is observed. [facility] RADIOLOG[facility] Carolyn Schaeffer MD - 05/14/2024 EXAMINATION: THREE XRAY VIEWS OF THE LEFT SHOULDER 05/14/2024 8:30 am COMPARISON: None. HISTORY: ORDERING SYSTEM PROVIDED HISTORY: fell at work TECHNOLOGIST PROVIDED HISTORY: Reason for exam:->fell at work What reading provider will be dictating this exam?->CRC FINDINGS: No fracture is seen. A left chest wall cardiac device is observed. IMPRESSION: No fracture . [facility] Radiology Study observation (narrative) [facility] XR Shoulder - left 2 ViewsOr dered By: Carolyn Schaeffer on 05-14-2024 [facility] Work Phone: Endocrinology Visit Reporton 04-26-2024 Endocrinology Visit Report [facility] [address] [place] [address] [address] [place] [address] OFFICE VISIT Date of Service: 04/26/24 MR#: [id number] Acct: [id number] Name: MARGIE HAYNES Rep #: [id number] : 1975 Provider: JOSE ALEJANDRO smith Age/Sex: 49/M Location: [facility] Status: Signed Intake Vital Signs 01/15/24 08:14 04/26/24 08:09 Height 5 ft 8 in 5 ft 8 in Weight: 280 lb 280 lb BMI 42.5 42.5 BP 148/90 H 139/91 H Blood Pressure Location Lt brachial Lt brachial Position Sitting Sitting Pulse 80 75 Pulse Source Monitor Monitor Pulse Oximetry (%) 95 95 Oxygen Delivery Method room air room air Intake Visit Reasons: 3 M FU Chief Complaint: f/u diabetes Is patient in pain?: Yes Allergies amoxicillin Allergy (Intermediate, Verified 04/26/24 08:12) Rash Medications ???Medication ???Instructions ???Recorded ???Confirmed ???Type aspirin 81 mg chewable tablet 81 mg PO DAILY 12/11/22 04/26/24 History pen needle, diabetic 32 gauge x #100 ea 12/11/22 04/26/24 Rx 5/32 (BD Ultra-Fine Sanna Pen Needle) acetaminophen 325 mg tablet 325 mg PO ONCE PRN 08/28/23 04/26/24 History (Tylenol) blood sugar diagnostic (OneTouch #100 ea 08/28/23 04/26/24 Rx Ultra Test strips) cetirizine 10 mg tablet (Zyrtec) 10 mg PO DAILY 11/06/23 04/26/24 History pen needle, diabetic 32 gauge x #100 ea 01/15/24 04/26/24 Rx 5/32 (BD Ultra-Fine Sanna Pen Needle) metformin 500 mg tablet 500 mg PO BID #60 tabs 03/11/24 04/26/24 Rx glimepiride 4 mg tablet 4 mg PO BID #180 tabs 03/26/24 04/26/24 Rx insulin degludec 100 unit/mL (3 30 unit (0.3 mL) subcut QHS #27 mL 04/26/24 04/26/24 Rx mL) subcutaneous pen (Tresiba FlexTouch U-100 insulin) insulin lispro 100 unit/mL 40 unit (0.4 mL) subcut TID #108 mL 04/26/24 04/26/24 Rx subcutaneous pen (Humalog KwikPen (U-100) Insulin) lisinopril 10 mg tablet 10 mg PO BID #180 tabs 04/26/24 04/26/24 Rx rosuvastatin 10 mg tablet 10 mg PO QDAY #30 tabs 04/26/24 04/26/24 Rx PFSH Medical History Seasonal allergies History of kidney cancer Surgical History H/O tympanostomy H/O adenoidectomy History of nephrectomy History of permanent cardiac pacemaker placement History of appendectomy Family History Mother Asthma Cervical cancer Ovarian cancer Cancer intestinal Father Parkinson disease Grandmother Diabetes Hypertension Cancer pancreatic Grandfather Cancer Prostate Brother Hypertension Diabetes CVA (cerebral vascular accident) Uncle Diabetes Grandmother Cancer leukemia Grandfather Myocardial infarction Uncle Diabetes Sister Cancer bone cancer Social History adopted: No household members: spouse number of children: 3 current occupational status: employed current occupation: [employer] pets and animals: Yes pets and animals: cat(s) Smoking Status: Never smoker Electronic Cigarette Use: not used alcohol intake: current alcohol intake frequency: a few times a month substance use type: does not use diet: gluten free caffeine: Yes (4) Type: carbonated beverages and coffee what type of physical activity do you participate in: none frequency: daily seatbelt use: always do you feel safe at home: Yes HPI HPI Chief Complaint: f/u diabetes Details: MARGIE HAYNES, is a 49 M who presents to the office today for evaluation and management of diabetes. A1C today is 11.3%, increased from 01/15/24 at 9.8%. Weight is stable. Currently taking metformin 500 mg BID, glimepiride 4 mg BID, Tresiba 15 u once daily, and Humalog 18 u TIDCM. He brings glucometer for review- blood sugars are significantly high. He is not checking his blood sugar routinely- bgl dates: 02/03, 02/27, 04/11, etc... He reports that he feels like he is wasting time checking his blood sugars and gets very discouraged when he checks because it is always elevated. Denies any bgl <70. He is frustrated that his insurance will not cover GLP-1s or CGMs. He does have ravi sensors at home; however, he does not like them d/t not getting full 14 days of wear. He admits that he is high agitated regarding his diabetes. I asked him to send in blood sugar logs after his last appointment for insulin dose management, he did not do so. BP elevated again today. Currently taking lisinopril 10 mg once daily. He complains of myalgias with atorvastatin use. Reports symptoms are significant to the point that he has difficulty with duties at work. States that his insurance is changing with May 12. He is due for labs. ROS Const C (more content not included)... Normal [facility] Endocrinology Visit Reporton 01-15-2024 Endocrinology Visit Report [facility] [address] [place] [address] OFFICE VISIT Date of Service: 01/15/24 MR#: [id number] Acct: [id number] Name: MARGIE HAYNES Rep #: [id number] : 1975 Provider: OJSE ALEJANDRO smith Age/Sex: 48/M Location: [facility] Status: Signed Intake Vital Signs 11/06/23 08:31 01/15/24 08:14 Height 5 ft 8 in 5 ft 8 in Weight: 269 lb 280 lb BMI 40.8 42.5 BP 132/85 H 148/90 H Blood Pressure Location Lt brachial Lt brachial Position Sitting Sitting Respiration 18 Pulse 62 80 Pulse Source Monitor Monitor Temp 97.1 F L Temp Source Temporal Pulse Oximetry (%) 95 95 Oxygen Delivery Method room air room air Intake Visit Reasons: 3 M FU, RS 12/07, RS 12/24, RS 01/14 Chief Complaint: f/u diabetes Pattern Stamper Required: No Accompanied by: Is patient in pain?: No Allergies amoxicillin Allergy (Intermediate, Verified 01/15/24 08:14) Rash Medications ???Medication ???Instructions ???Recorded ???Confirmed ???Type aspirin 81 mg chewable tablet 81 mg PO DAILY 12/11/22 01/15/24 History atorvastatin 20 mg tablet 20 mg PO DAILY 12/11/22 01/15/24 History lisinopril 10 mg tablet 10 mg PO DAILY 12/11/22 01/15/24 History pen needle, diabetic 32 gauge x #100 ea 12/11/22 08/28/23 Rx 5/32 (BD Ultra-Fine Sanna Pen Needle) insulin degludec 100 unit/mL (3 15 unit (0.15 mL) subcut QHS #15 mL 06/16/23 01/15/24 Rx mL) subcutaneous pen (Tresiba FlexTouch U-100 insulin) acetaminophen 325 mg tablet 325 mg PO ONCE PRN 08/28/23 01/15/24 History (Tylenol) blood sugar diagnostic (OneTouch #100 ea 08/28/23 08/28/23 Rx Ultra Test strips) insulin lispro 100 unit/mL 20 unit (0.2 mL) subcut TID #18 mL 08/28/23 01/15/24 Rx subcutaneous pen (Humalog KwikPen (U-100) Insulin) metformin 500 mg tablet 500 mg PO BID #60 tabs 09/17/23 01/15/24 Rx glimepiride 4 mg tablet 4 mg PO BID #180 tabs 10/01/23 01/15/24 Rx cetirizine 10 mg tablet (Zyrtec) 10 mg PO DAILY 11/06/23 01/15/24 History pen needle, diabetic 32 gauge x #100 ea 01/15/24 01/15/24 Rx 32 (BD Ultra-Fine Sanna Pen Needle) PFSH Medical History Seasonal allergies History of kidney cancer Surgical History H/O tympanostomy H/O adenoidectomy History of nephrectomy History of permanent cardiac pacemaker placement History of appendectomy Family History Mother Asthma Cervical cancer Ovarian cancer Cancer intestinal Father Parkinson disease Grandmother Diabetes Hypertension Cancer pancreatic Grandfather Cancer Prostate Brother Hypertension Diabetes CVA (cerebral vascular accident) Uncle Diabetes Grandmother Cancer leukemia Grandfather Myocardial infarction Uncle Diabetes Sister Cancer bone cancer Social History adopted: No household members: spouse number of children: 3 current occupational status: employed current occupation: [employer] pets and animals: Yes pets and animals: cat(s) Smoking Status: Never smoker Electronic Cigarette Use: not used alcohol intake: current alcohol intake frequency: a few times a month substance use type: does not use diet: gluten free caffeine: Yes (4) Type: carbonated beverages and coffee what type of physical activity do you participate in: none frequency: daily seatbelt use: always do you feel safe at home: Yes HPI HPI Chief Complaint: f/u diabetes Details: MARGIE HAYNES, is a 48 M who presents to the office today for evaluation and management of diabetes. A1C today is 9.8%, improved slightly from 08/28/23 at 10.9%. He has gained 11 lbs since his last appt here on 11/06/23. This is very upsetting to him. He is upset because Ozempic is unaffordable; unfortunately, his insurance does not cover diabetic medication/supplies well. Currently taking Tresiba 15 u once daily, Humalog 10+ u TIDCM, metformin 500 mg BID with food, and glimepiride 4 mg BID. He is checking his blood sugar routinely, readings vary. Denies any blood sugar <70. He continues to drink milk, though less than previous. He has made dietary improvements though he continues to eat some degree of processed carbohydrates. His diet is upsetting to him. I would ra ther be . BP significantly elevated today, he is quite upset during his appointment. Currently taking lisinopril 10 mg once daily. He is difficult to communicate with because he is profoundly upset regarding his diabetes. I'm ready to just give up. If I make it passed 49 I'll be happy. Denies any acute concerns. ROS Const Co (more content not included)... Normal [facility] Endocrinology Visit Reporton 11-06-2023 Endocrinology Visit Report [facility] [address] [place] [address] OFFICE VISIT Date of Service: 11/06/23 MR#: [id number] Acct: [id number] Name: MAGRIE HAYNES Rep #: [id number] : 1975 Provider: JOSE ALEJANDRO smith Age/Sex: 48/M Location: [facility] Status: Signed Intake Vital Signs 09/17/23 10:19 11/06/23 08:31 Height 5 ft 8 in 5 ft 8 in Weight: 266 lb 269 lb BMI 40.4 40.8 BP 136/83 H 132/85 H Blood Pressure Location Lt brachial Lt brachial Position Sitting Sitting Respiration 18 Pulse 77 62 Pulse Source Monitor Monitor Temp 98.1 F 97.1 F L Temp Source Temporal Temporal Pulse Oximetry (%) 94 95 Oxygen Delivery Method room air room air Intake Visit Reasons: 7 WK FU Chief Complaint: f/u diabetes Pattern Stamper Required: No Accompanied by: Is patient in pain?: No Allergies amoxicillin Allergy (Intermediate, Verified 11/06/23 08:29) Rash Medications ???Medication ???Instructions ???Recorded ???Confirmed ???Type aspirin 81 mg chewable tablet 81 mg PO DAILY 12/11/22 11/06/23 History atorvastatin 20 mg tablet 20 mg PO DAILY 12/11/22 11/06/23 History lisinopril 10 mg tablet 10 mg PO DAILY 12/11/22 11/06/23 History pen needle, diabetic 32 gauge x #100 ea 12/11/22 08/28/23 Rx 5/32 (BD Ultra-Fine Sanna Pen Needle) insulin degludec 100 unit/mL (3 15 unit (0.15 mL) subcut QHS #15 mL 06/16/23 11/06/23 Rx mL) subcutaneous pen (Tresiba FlexTouch U-100 insulin) acetaminophen 325 mg tablet 325 mg PO ONCE PRN 08/28/23 11/06/23 History (Tylenol) blood sugar diagnostic (OneTouch #100 ea 08/28/23 08/28/23 Rx Ultra Test strips) insulin lispro 100 unit/mL 20 unit (0.2 mL) subcut TID #18 mL 08/28/23 11/06/23 Rx subcutaneous pen (Humalog KwikPen (U-100) Insulin) pen needle, diabetic 32 gauge x #100 ea 08/28/23 08/28/23 Rx 5/32 (BD Ultra-Fine Sanna Pen Needle) metformin 500 mg tablet 500 mg PO BID #60 tabs 09/17/23 11/06/23 Rx glimepiride 4 mg tablet 4 mg PO BID #180 tabs 10/01/23 11/06/23 Rx cetirizine 10 mg tablet (Zyrtec) 10 mg PO DAILY 11/06/23 11/06/23 History PFSH Medical History Seasonal allergies History of kidney cancer Surgical History H/O tympanostomy H/O adenoidectomy History of nephrectomy History of permanent cardiac pacemaker placement History of appendectomy Family History Mother Asthma Cervical cancer Ovarian cancer Cancer intestinal Father Parkinson disease Grandmother Diabetes Hypertension Cancer pancreatic Grandfather Cancer Prostate Brother Hypertension Diabetes CVA (cerebral vascular accident) Uncle Diabetes Grandmother Cancer leukemia Grandfather Myocardial infarction Uncle Diabetes Sister Cancer bone cancer Social History adopted: No household members: spouse number of children: 3 current occupational status: employed current occupation: [employer] pets and animals: Yes pets and animals: cat(s) Smoking Status: Never smoker Electronic Cigarette Use: not used alcohol intake: current alcohol intake frequency: a few times a month substance use type: does not use diet: gluten free caffeine: Yes (4) Type: carbonated beverages and coffee what type of physical activity do you participate in: none frequency: daily seatbelt use: always do you feel safe at home: Yes HPI HPI Chief Complaint: f/u diabetes Details: MARGIE HAYNES, is a 48 M who presents to the office today for evaluation and management of diabetes. A1C on 08/18/23 was 10.9%. At that time, treatment was escalated to include basal/bolus and I gave him a sample of Ozempic 0.5 mg to be taken once weekly- tolerating well. Currently taking humalog 6-8 u TIDCM, Tresiba 30 u once daily- he reports that's what the box said. I do not have this information on his script- glimepiride 4 mg BID, metformin 500 mg BID with food, and Ozempic 0.5 mg qweek. He brings his glucometer for review- he is having elevated fasting blood sugars, he is having lows between meals. Average 30 day bgl was 200+. He was previously on SGLT-2 and GLP-1 that was covered by insurance; however, d/t high deductible, these medications have become unaffordable. This is very frustrating for him as blood sugars were better controlled at that time. Insulin is the only medication at this time that is affordable. Labs are up to date. Denies any acute concerns. Exam Const General: cooperative, healthy appearing, comfortable and no acute distress Nutritional Appearance: obese Orientation: alert, awake (more content not included)... Normal [facility] MARGIE HAYNES ([id number]) 1975 M Date Time Provider Department 08/30/23 HIRAM SYKES [facility] During your visit today, we recorded the following information about you: Mirna Woodson MA 08/30/2023 11:21 AM Signed Received patient's Office Notes re: Diabetes (dos: 08/28/23) from [facility] placed in provider's in box to be for reviewed AND signed with providers approval to be sent to scanning. Mirna Brooks) Hiram Sykes MD 08/30/2023 11:56 AM Signed Patient was seen for follow-up of diabetes Hemoglobin A1c is 10.9 significantly increased from 03/13/2023 when it was 7.9% Has lost about 4 pounds Insurance did not cover the GLP-1 or the SGLT2 Has been doing Basaglar 15 units once daily, glimepiride 4 mg twice a day and metformin 500 mg twice a day with food Diabetes: Increase Basaglar to 18 units once daily Start Humalog 6 units with meals and sliding scale Increase blood sugar checks to minimum 3 times a day Recommend to stop drinking pop Will resume GLP-1 and/or SGLT2 if insurance situation changes Follow-up in 4 weeks Hypertension: Blood pressure still elevated If still elevated at follow-up we will increase lisinopril Allergies As of Date: 08/30/2023 Noted Allergy Reaction AMOXICILLIN 03/21/2015 16 - Unknown Comments: Rash at 3 years of age. Has tolerated augmentin in the past. METFORMIN 06/22/2019 8 - GI Upset Date Reviewed: 05/02/2023 Reviewed by: Hannah Morton RN - Fully Assessed Reason for Visit: Received Outside Medical Records [[id number]] Cmt: [facility] re: Diabetes (08/28/23) Order(s):HGBA1C (EXTERNAL [facility]) [[id number]] Order #: [id number] insulin glargine 100 unit/mL (3 mL)Inject 18 Units subcutaneously daily at bedtime.Disp: Rfl: insulin lispro (HUMALOG U-100 INSULIN) 100 unit/mL injection6 Units subcutaneously before meals. Give subcutaneous. + ISSDisp: Rfl: Prescriptions as of 08/30/2023 - insulin glargine 100 unit/mL (3 mL) Inject 18 Units subcutaneously daily at bedtime. - insulin lispro (HUMALOG U-100 INSULIN) 100 unit/mL injection 6 Units subcutaneously before meals. Give subcutaneous. + ISS - atorvastatin (LIPITOR) 20 mg tablet take 1 tablet by mouth every day - lisinopril (ZESTRIL) 10 mg tablet take 1 tablet by mouth every day - metFORMIN ER (GLUCOPHAGE XR) 500 mg 24 hr tablet Take 1 tablet by mouth twice daily with meals. May gradually increase up to 4 tablets daily as tolerated. - ONETOUCH ULTRA TEST test strip USE TO CHECK BLOOD SUGARS TWICE DAILY OR DIRECTED. - lancets (ONE TOUCH DELICA) 33 gauge USE TO CHECK BLOOD SUGARS TWICE DAILY OR DIRECTED. - glimepiride (AMARYL) 4 mg tablet Take 1 tablet by mouth twice daily with meals. - CPAP BiPAP supplies including large mask, tubing and headgear for BiPAP Auto Remstar F10 machine - aspirin, enteric coated (ECOTRIN LOW STRENGTH) 81 mg EC tablet Take 1 tablet by mouth once daily. - cetirizine (ZYRTEC) 10 mg tablet Take 1 tablet by mouth once daily. Problem List As Of Date 08/30/2023 Noted Resolved History of pacemaker [Z95.0] RENETTA on CPAP [G47.33] Fatty infiltration of liver [K76.0] 11/29/2015 Uncontrolled type 2 diabetes mellitus with hype*12/08/2015 Left kidney mass [N28.89] 01/22/2016 H/O atrial fibrillation without current medicat* Screening for genitourinary condition [Z13.89] 12/25/2015 02/13/2016 Microscopic hematuria [R31.29] 12/25/2015 Neoplasm of uncertain behavior of left kidney [*12/25/2015 01/22/2016 Malignant neoplasm of left kidney, except renal*01/22/2016 S/p nephrectomy [Z90.5] 03/16/2016 Obesity, Class III, BMI 40-49.9 (morbid obesity*08/12/2017 Coronary artery disease involving lytton szymanski*01/07/2018 Low testosterone in male [R79.89] 11/24/2018 Prescriptions ordered this encounter Disp Refills Start End INSULIN GLARGINE (U-100) 100 UNIT/ML* 08/30/2023 Class: Med Update Cmt: Generic or brand: dispense product preferred by patient/insurance unless KELLIE flag is selected. Route: SUBCUTANEOUS Sig: Inject 18 Units subcutaneously daily at bedtime. INSULIN LISPRO (U-100) 100 UNIT/ML S* 08/30/2023 Class: Med Update Si Units subcutaneously before meals. Give subcutaneous. + ISS Medications Discontinued During This Encounter Prescriptions - OZEMPIC 0.25 mg or 0.5 mg (2 mg/3 mL) pen (Discontinued) 0.5 mg once weekly - LEVEMIR FLEXPEN 100 unit/mL (3 mL) injection pen (Discontinued) 15 units once daily at nighttime Encounter Status:Closed by HIRAM SYKES on 08/30/23 Normal [facility] HGBA1C (EXTERNAL [facility])on HbA1c (Bld) [Mass fraction] 10.3 % Abnormal 4.4 - 6.3 [facility] No Panel Informationon 06-30 BLANK _ [facility] Implant Date 02/06/2009 [facility] Model 4076 CapsureFix Novus [facility] CHECKon AV Delay Adaptive Paced Minimum (ms) 180 ms [facility] AV Delay Adaptive Sensed Minimum (ms) 150 ms [facility] AV Delay Adaptive Status DISABLED [facility] Battery Voltage (volts) 3.20 V [facility] Braxton RA Pacing Amplitude (volts) 1.5 V [facility] Braxton RA Pacing Polarity BI [facility] Braxton RA Pacing Pulse Width (ms) 0.4 ms [facility] Braxton RA Sensing Amplitude (mvolts) 0.45 mV [facility] Braxton RA Sensing Blanking Period (ms) 30 ms [facility] Braxton RA Sensing Polarity BI [facility] Braxton RA Sensing Refractory Period (ms) Auto [facility] Braxton RV Pacing Amplitude (volts) 2 V [facility] Braxton RV Pacing Polarity BI [facility] Braxton RV Pacing Pulse Width (ms) 0.4 ms [facility] Braxton RV Sensing Amplitude (mvolts) 0.9 mV [facility] Braxton RV Sensing Blanking Period (ms) 200 ms [facility] Braxton RV Sensing Polarity BI [facility] Hysteresis Rate (bpm) DISABLED [facility] Implant Date 05/02/2023 [facility] Lead1 Mfg MDT [facility] Lead2 Mfg MDT [facility] Location RA [facility] Location RV [facility] Lower Rate (bpm) 40 {beats}/min [facility] Max Sensor Rate (bmp) 130 {beats}/min [facility] Model [id number] [employer] XT DR CHAD [facility] Pacemaker Dependent? NO [facility] PM-Device Mfg MDT [facility] PM-Percent Pacing (A) 0.12 % [facility] PM-Percent Pacing (V) 0.07 % [facility] PM-PMT Intervention DISABLED [facility] PM-PVC Intervention ENABLED [facility] PM-Rate Modulation Acceleration Reaction 30 s [facility] PM-Rate Modulation ADL Rate (bpm) 95 {beats}/min [facility] PM-Rate Modulation Deceleration Exercise [facility] PM-Rate Modulation [place] 3 [facility] PM-Rate Modulation Threshold Low [facility] RA Bipolar Impedance ohms 361 ohm [facility] RA Unipolar Impedance ohms 304 ohm [facility] Rhythm Normal Sinus Rhythm [facility] RV Bipolar Impedance ohms 399 ohm [facility] RV Unipolar Impedance 342 ohm [facility] Serial Number [id number] [facility] Thresh RA Capture Amplitude (volts) 0.625 V [facility] Thresh RA Capture Duration (ms) 0.4 ms [facility] Thresh RA Sensing Amplitude (mvolts) 3.25 mV [facility] Thresh RV Capture Amplitude (volts) 0.625 V [facility] Thresh RV Capture Duration (ms) 0.4 ms [facility] Thresh RV Sensing Amplitude (mvolts) 10.125 mV [facility] Tracking Rate (bpm) 130 {beats}/min [facility] Mary 06-11-2023 TANK Telephone (CARDMN) MARGIE HAYNES ([id number]) 1975 M Date Time Provider Department 06/11/23 BRIAN HAWLEY During your visit today, we recorded the following information about you: Lasha Anthony 06/11/2023 11:42 AM Signed Post Implant follow up call: Date: 06/11/2023 Name: Margie Haynes Is your incision: Red: No Open: No Swollen: No Draining: No Steri Strips: fell off If the device is an ICD, have you received any shocks: N/A Have you received your temporary or permanent ID card: Yes Do you have your f/u appointment: Yes Appointments for Next 60 Days Date Time Provider Location Dept Phone 06/30/2023 10:30 AM [facility] [phone] Any scheduling issues:No Questions moving forward: No Lasha GriselMippin Jazlyn Allergies As of Date: 06/11/2023 Noted Allergy Reaction AMOXICILLIN 03/21/2015 16 - Unknown Comments: Rash at 3 years of age. Has tolerated augmentin in the past. METFORMIN 06/22/2019 8 - GI Upset Date Reviewed: 05/02/2023 Reviewed by: Hannah Morton, RN - Fully Assessed Reason for Visit: Device survey [Other] Prescriptions as of 06/11/2023 - atorvastatin (LIPITOR) 20 mg tablet take 1 tablet by mouth every day - lisinopril (ZESTRIL) 10 mg tablet take 1 tablet by mouth every day - OZEMPIC 0.25 mg or 0.5 mg (2 mg/3 mL) pen 0.5 mg once weekly - LEVEMIR FLEXPEN 100 unit/mL (3 mL) injection pen 15 units once daily at nighttime - metFORMIN ER (GLUCOPHAGE XR) 500 mg 24 hr tablet Take 1 tablet by mouth twice daily with meals. May gradually increase up to 4 tablets daily as tolerated. - ONETOUCH ULTRA TEST test strip USE TO CHECK BLOOD SUGARS TWICE DAILY OR DIRECTED. - lancets (ONE TOUCH DELInnoVital Systems) 33 gauge USE TO CHECK BLOOD SUGARS TWICE DAILY OR DIRECTED. - glimepiride (AMARYL) 4 mg tablet Take 1 tablet by mouth twice daily with meals. - CPAP BiPAP supplies including large mask, tubing and headgear for BiPAP Auto Remstar F10 machine - aspirin, enteric coated (ECOTRIN LOW STRENGTH) 81 mg EC tablet Take 1 tablet by mouth once daily. - cetirizine (ZYRTEC) 10 mg tablet Take 1 tablet by mouth once daily. Problem List As Of Date 06/11/2023 Noted Resolved History of pacemaker [Z95.0] RENETTA on CPAP [G47.33] Fatty infiltration of liver [K76.0] 11/29/2015 Uncontrolled type 2 diabetes mellitus with hype*12/08/2015 Left kidney mass [N28.89] 01/22/2016 H/O atrial fibrillation without current medicat* Screening for genitourinary condition [Z13.89] 12/25/2015 02/13/2016 Microscopic hematuria [R31.29] 12/25/2015 Neoplasm of uncertain behavior of left kidney [*12/25/2015 01/22/2016 Malignant neoplasm of left kidney, except renal*01/22/2016 S/p nephrectomy [Z90.5] 03/16/2016 Obesity, Class III, BMI 40-49.9 (morbid obesity*08/12/2017 Coronary artery disease involving lytton szymanski*01/07/2018 Low testosterone in male [R79.89] 11/24/2018 Encounter Status:Closed by LASHA ANTHONY on 06/11/23 [facility] ANES POSTPROC EVALon 023 ANES POSTPROC EVAL HNO ID: [id number] Author: Kishan Liu MD Service: ? Author Type: Anesthesiologist Type: Anesthesia Postprocedure Evaluation Filed: 05/02/2023 3:41 PM Note Text: POST ANESTHESIA EVALUATION NOTE : 1975 Procedure Summary Date: 05/02/23 Room / Location: [address] [facility] Anesthesia Start: 1530 Anesthesia Stop: 1536 Procedure: (GENERATOR CHANGE DUAL CHAMBER PPM) REMOVAL OF PERMANENT PACEMAKER PULSE GENERATOR W/ REPLACEMENT OF PACEMAKER PULSE GENERATOR DUAL LEAD Diagnosis: Syncope and collapse Persistent atrial fibrillation (HCC) (Syncope and collapse [R55]) (Persistent atrial fibrillation (HCC) [I48.19]) Surgeons: Brian Hawley MD Responsible Provider: Kishan Liu MD Anesthesia Type: general ASA Status: 3 Anesthesia Type: general Airway Type: anesthesia mask Last Vitals Vitals Value Taken Time BP 123/91 05/02/23 1531 Temp 36.5 05/02/23 1541 Pulse 81 05/02/23 1539 Resp 16 05/02/23 1539 SpO2 100 % 05/02/23 1539 Vitals shown include unfiled device data. Post Anesthesia Patient Status Patient Evaluation: PACU. PACU/ICU Patient Condition: stable. Neurological Status: aware and responsive. Pulmonary Status: breathing comfortably on supplemental oxygen Airway Control: returned to baseline unsupported. Cardiovascular Status: stable. Pain Management: clinically adequate Postoperative Hydration: acceptable. Intraoperative Events: no significant anesthesia events Post Operative Nausea/Vomiting Status: no significant post operative nausea or vomiting Recommendation: continue current plan of care and further care per PACU/ICU/floor team. Anesthesia Observations No Documentation SIGNATURE: Kishan Liu MD PATIENT NAME: Margie Haynes DATE: May 02, 2023 TIME: 3:41 PM CSN: [id number] Normal [facility] ANES PRE-OPon 05-02-2023 ANES PRE-OP HNO ID: [id number] Author: Kishan Liu MD Service: ? Author Type: Anesthesiologist Type: Anesthesia Preprocedure Evaluation Filed: 05/02/2023 3:31 PM Note Text: ANESTHESIOLOGY DAY OF SURGERY NOTE : 1975 Procedure Information Anesthesia Start Date/Time: 05/02/23 1530 Procedure: (GENERATOR CHANGE DUAL CHAMBER PPM) REMOVAL OF PERMANENT PACEMAKER PULSE GENERATOR W/ REPLACEMENT OF PACEMAKER PULSE GENERATOR DUAL LEAD Location: [facility] / EP LAB Surgeons: Brian Hawley MD Estimated body mass index is 38.01 kg/m? as calculated from the following: Height as of 04/21/23: 172.7 cm (5' 8). Weight as of 04/21/23: 113.4 kg (250 lb). Most recent hematocrit and potassium results: Hematocrit 46.0 04/21/2023 Potassium 4.4 04/21/2023 Relevant Problems ANESTHESIA (+) RENETTA on CPAP CARDIO (+) Coronary artery disease involving lytton coronary artery of lytton heart without angina pectoris -RENAL (+) Fatty infiltration of liver (+) Malignant neoplasm of left kidney, except renal pelvis (HCC) NEURO-PSYCH (+) H/O atrial fibrillation without current medication (+) History of pacemaker PULMONARY (+) RENETTA on CPAP I - PHYSICAL EVALUATION AIRWAY Patient intubated: No. Tracheostomy tube not present Mallampati: II. TM distance: <3 FB. Neck ROM: full ROM without neurological symptoms. Mouth opening: adequate. Short neck: no. Thick neck: no Roca present: yes Lip Bite Test: I Microretrognathia/Micronagt hia/Recessed Chin: Yes DENTAL Dental findings: teeth intact and chipped. Additional exam findings: no II - ANESTHESIA PLAN ASA Score: 3 Anesthetic Plan: general Airway type: anesthesia mask The patient is not a current smoker. NPO Status: adequate Beta Ethan Monitoring Plan Monitoring plan: standard ASA. Post Procedure Analgesic Plan Postoperative analgesic plan: parenteral or oral opioids. Informed Consent Anesthetic risks, benefits, alternatives, personnel and consent discussed: yes. Patient / Responsible Libertarian agrees to proceed: yes Patient / Surrogate agrees to blood products: Yes DNR status not reviewed with patient and/or family prior to surgery. Significant changes in the patient condition since the History and Physical, not otherwise documented in primary service progress note: no. Potential Anesthesia issues that may suggest increased risk of complications or contraindication to planned procedure: none. Vitals Value Taken Time BP 114/85 05/02/23 1525 Pulse 138 05/02/23 1529 Resp 17 05/02/23 1529 Temp 37.1 ?C (98.7 ?F) 05/02/23 1056 SpO2 97 % 05/02/23 1529 Vitals shown include unfiled device data. Facility-Administered Medications as of 05/02/2023 Medication Dose Route Frequency - NaCl 0.9% iv infusion INTRAVENOUS X (OR/PROCEDURE) CONTINUOUS - Vancomycin in Normal Saline 1 gram/250 mL soln INTRAVENOUS X (OR/PROCEDURE) PRN - midazolam (PF) injection (VERSED) INTRAVENOUS X (OR/PROCEDURE) PRN - fentaNYL 50 mcg/mL injection (SUBLIMAZE) INTRAVENOUS X (OR/PROCEDURE) PRN Outpatient Medications as of 05/02/2023 Medication Sig - aspirin, enteric coated (ECOTRIN LOW STRENGTH) 81 mg EC tablet Take 1 tablet by mouth once daily. - atorvastatin (LIPITOR) 20 mg tablet take 1 tablet by mouth every day - lisinopril (ZESTRIL) 10 mg tablet take 1 tablet by mouth every day - OZEMPIC 0.25 mg or 0.5 mg (2 mg/3 mL) pen 0.5 mg once weekly - LEVEMIR FLEXPEN 100 unit/mL (3 mL) injection pen 15 units once daily at nighttime - metFORMIN ER (GLUCOPHAGE XR) 500 mg 24 hr tablet Take 1 tablet by mouth twice daily with meals. May gradually increase up to 4 tablets daily as tolerated. - ONETOUCH ULTRA TEST test strip USE TO CHECK BLOOD SUGARS TWICE DAILY OR DIRECTED. - lancets (ONE TOUCH DELInnoVital Systems) 33 gauge USE TO CHECK BLOOD SUGARS TWICE DAILY OR DIRECTED. - glimepiride (AMARYL) 4 mg tablet Take 1 tablet by mouth twice daily with meals. - CPAP BiPAP supplies including large mask, tubing and headgear for BiPAP Auto Remstar F10 machine - cetirizine (ZYRTEC) 10 mg tablet Take 1 tablet by mouth once daily. I have interviewed and examined the patient. I have reviewed the medical record and/or the pre-anesthesia evaluation, pertinent labs, and test results. This contains updated information obtained within 48 hours of Surgery/Procedure. SIGNATURE: Kishan Liu MD PATIENT NAME: Margie Haynes DATE: May 02, 2023 TIME: 3:30 PM CSN: [id number] Normal [facility] BRIEF OP NOTon 05-02-2023 BRIEF OP NOT HNO ID: [id number] Author: Kandis Mcdermott MD Service: Cardiovascular Disease Author Type: Fellow Type: Brief Op Note Filed: 05/02/2023 4:12 PM Note Text: BRIEF PROCEDURE NOTE: Procedure: S/p pacemaker generator change; A-fib RVR s/p cardioversion. Start time: May 02, 2023, 2:50 PM End time: May 02, 2023, 4:06 PM Primary Surgeon: Brian Hawley MD Lyric Writer: Kandis Mcdermott MD Outcome: Successful Access: L pre-pectoral pocket Closed with absorbable sutures. Procedural findings AND Complications: No immediate complications. Estimated Blood loss: 10cc's Specimen(s) removed: None Postoperative Diagnosis: DC PPM at [employer] s/p pacemaker generator change, A-fib w RVR s/p DCCV with 200 J synchronized external shock. Plan: - Bedrest for 2 hours - Please no IV heparin products after device implant (for the next 48-72 hours) - Post-procedure device check has been ordered. - Discharge home today IF post-op device check shows stable parameters. - No changes to outpatient medications upon discharge. Full report to follow in [facility] (Under Chart Review -> Cardiac) Kandis Mcdermott MD Fellow - Cardiac Pacing and Electrophysiology 05/02/2023 4:06 PM Normal [facility] SURGICAL PATHOLOGYon 023 CASE REPORT Normal [facility] Comment on above: Order Comment: Speczoltan roberson Type: DEVICE SPECIMENOrdering Facility: [facility] Address: [address] [place] [address] Result Comment: Surg ica Pathology Report Case: [id number] Authorizing Provider: Brian Hawley MD Collected: 05/02/2023 03:09 PM Ordering Location: [facility] Received: 05/06/2023 08:47 AM Pathologist: Sonali Vazquez MD Specimen: DEVICE, medtronic pacemaker Performed By: #### S ####[facility] LABCLIA [id number] [place] [address] [place] CLINICAL HISTORY Normal [facility] Comment on above: Order Comment: Nelda roberson Type: DEVICE SPECIMENOrdering Facility: [facility] Address: [address] [place] [address] Result Comment: Pre- op diagnosis: Syncope and collapse [R55] Persistent atrial fibrillation (HCC) [I48.19] Performed By: #### S ####[facility] LABCLIA [id number] [address] [place] FINAL DIAGNOSIS Normal [facility] Comment on above: Order Comment: Nelda roberson Type: DEVICE SPECIMENOrdering Facility: [facility] Address: [address] [place], [place] [address] Result Comment: A. P ermanent pacemaker, removal: - Pulse generator (gross examination only). Performed By: #### S ####[facility] LABCLIA [id number] [address] [place] FINAL PERFORMING LAB Normal [facility] Comment on above: Order Comment: Speci men Type: DEVICE SPECIMENOrdering Facility: [facility] Address: [address] [place] [address] Result Comment: Diag nostic interpretation performed at [facility], [facility] [place] [address] CLIA# [id number] Bods Developer: Zeke Taylor M.D. Performed By: #### S ####[facility] LABIA [id number] [address] OF [facility] GROSS DESCRIPTION A. DEVICE Normal [facility] Comment on above: Order Comment: Speci karol Type: DEVICE SPECIMENOrdering Facility: [facility] Address: [address] [place] [address] Result Comment: Rece ived in formalin labeled with device, Medtronic pacemaker is a grossly unremarkable pulse generator battery measuring 4.8 x 4.4 x 1.0 cm. There are no defects present. Inscribed on the device is Medtronic Adapta SN [id number]. There is no attached soft tissue present. No sections are submitted. The specimen is reviewed with Dr. Vazquez. TLA May 06, 2023 9:57 AM Gross examination performed at [facility], [address] [place] [address] Performed By: #### S ####[facility] LABIA [id number] [address] [place] Mary 04-22-2023 CNPAlen Telephone ([facility]) MARGIE HAYNES ([id number]) 1975 M Date Time Provider Department 04/22/23 BRIAN HAWLEYMN During your visit today, we recorded the following information about you: Brittney Bailey RN 04/22/2023 4:48 PM Signed Called and spoke to the patient's . Patient rescheduled from 05/16/23 to the new date of 05/02/[address] Hawley. Brittney Bailey RN Allergies As of Date: 04/22/2023 Noted Allergy Reaction AMOXICILLIN 03/21/2015 16 - Unknown Comments: Rash at 3 years of age. Has tolerated augmentin in the past. METFORMIN 06/22/2019 8 - GI Upset Date Reviewed: 12/30/2022 Reviewed by: Arnold Estrella LPN - Fully Assessed Reason for Visit: Appointment Rescheduled [1024] Cmt: EPS-PPM Change Prescriptions as of 04/22/2023 - atorvastatin (LIPITOR) 20 mg tablet take 1 tablet by mouth every day - lisinopril (ZESTRIL) 10 mg tablet take 1 tablet by mouth every day - OZEMPIC 0.25 mg or 0.5 mg (2 mg/3 mL) pen 0.5 mg once weekly - LEVEMIR FLEXPEN 100 unit/mL (3 mL) injection pen 15 units once daily at nighttime - metFORMIN ER (GLUCOPHAGE XR) 500 mg 24 hr tablet Take 1 tablet by mouth twice daily with meals. May gradually increase up to 4 tablets daily as tolerated. - ONETOUCH ULTRA TEST test strip USE TO CHECK BLOOD SUGARS TWICE DAILY OR DIRECTED. - lancets (ONE TOUCH DELICA) 33 gauge USE TO CHECK BLOOD SUGARS TWICE DAILY OR DIRECTED. - glimepiride (AMARYL) 4 mg tablet Take 1 tablet by mouth twice daily with meals. - CPAP BiPAP supplies including large mask, tubing and headgear for BiPAP Auto Remstar F10 machine - aspirin, enteric coated (ECOTRIN LOW STRENGTH) 81 mg EC tablet Take 1 tablet by mouth once daily. - cetirizine (ZYRTEC) 10 mg tablet Take 1 tablet by mouth once daily. Problem List As Of Date 04/22/2023 Noted Resolved History of pacemaker [Z95.0] RENETTA on CPAP [G47.33] Fatty infiltration of liver [K76.0] 11/29/2015 Uncontrolled type 2 diabetes mellitus with hype*12/08/2015 Left kidney mass [N28.89] 01/22/2016 H/O atrial fibrillation without current medicat* Screening for genitourinary condition [Z13.89] 12/25/2015 02/13/2016 Microscopic hematuria [R31.29] 12/25/2015 Neoplasm of uncertain behavior of left kidney [*12/25/2015 01/22/2016 Malignant neoplasm of left kidney, except renal*01/22/2016 S/p nephrectomy [Z90.5] 03/16/2016 Obesity, Class III, BMI 40-49.9 (morbid obesity*08/12/2017 Coronary artery disease involving lytton szymanski*01/07/2018 Low testosterone in male [R79.89] 11/24/2018 Encounter Status:Closed by BRITTNEY BAEZ on 04/22/23 Normal [facility] ALBUMIN/CREAT RATIO RND URon 04-21-2023 Albumin DL <= 20 mg/L (U) [Mass/Vol] mg/dL Normal [facility] Comment on above: Order Comment: Speci men Type: URINE SPECIMENOrdering Facility: [facility] Address: [address] [place] [address] Performed By: #### U ACR ####[facility] LABCLIA [id number] [facility] [id number] [place] [address] [place] Albumin/Creatinine (U) [Mass ratio] <21 Normal <30 [facility] Comment on above: Order Comment: Speci men Type: URINE SPECIMENOrdering Facility: [facility] Address: [address] [place] [address] Result Comment: Adul t Male and Female Nephrotic Criteria: <30 mg/g is considered normal to mildly increased 30-300 mg/g is considered moderately increased >300 mg/g is considered severely increased KDIGO. (2013). KDIGO 2012 Clinical Practice Guideline for the Evaluation and Management of Chronic Kidney Disease. Official Journal of the International Society of Nephrology, 3(1), 1-150. Performed By: #### U ACR ####[facility] LABCLIA [id number] [place] [address] [place] Creatinine (U) [Mass/Vol] 56.1 mg/dL Normal 20.0-300.0 [facility] Comment on above: Order Comment: Speci men Type: URINE SPECIMENOrdering Facility: [facility] Address: [address] [place] [address] Performed By: #### U ACR ####[facility] LABCLIA [id number] [place] [address] [place] Basic metabolic 2000 panelon 04-21-2023 Anion gap [Moles/Vol] 12 mmol/L Normal 9-18 [facility] Comment on above: Order Comment: Speci men Type: BLOOD SPECIMENOrdering Facility: [facility] Address: [address] [place] [address] Performed By: #### 2 4331-1, 31048-0 ####[facility] LABCLIA [id number] [place] [address] [place] Calcium [Mass/Vol] 9.7 mg/dL Normal 8.5-10.2 [facility] Comment on above: Order Comment: Speci men Type: BLOOD SPECIMENOrdering Facility: [facility] Address: [address] [place] [address] Performed By: #### 2 4331-1, 82315-6 ####[facility] LABCLIA [id number] [place] [id number] [place] Chloride [Moles/Vol] 101 mmol/L Normal 97-105 [facility] Comment on above: Order Comment: Speci men Type: BLOOD SPECIMENOrdering Facility: [facility] Address: [address] [place] [address] Performed By: #### 2 4331-1, 51935-4 ####[facility] LABCLIA [id number] [place] [address] [place] CO2 [Moles/Vol] 24 mmol/L Normal 22-30 [facility] Comment on above: Order Comment: Speci men Type: BLOOD SPECIMENOrdering Facility: [facility] Address: [address] [place] [address] Performed By: #### 2 4331-1, 94252-4 ####[facility] [id number] [place] [address] [place] Creatinine [Mass/Vol] 1.15 mg/dL Normal 0.73-1.22 [facility] Comment on above: Order Comment: Speci men Type: BLOOD SPECIMENOrdering Facility: [facility] Address: [address] [place] [address] Performed By: #### 2 4331-1, 16783-5 ####[facility] [id number] [place] [address] [place] Creatinine and Glomerular filtration rate.predicted panel (S/P/Bld) 78 mL/min/1.73m??? Normal >=60 [facility] Comment on above: Order Comment: Speci men Type: BLOOD SPECIMENOrdering Facility: [facility] Address: [address] [place] [address] Result Comment: Bianca mated Glomerular Filtration Rate (eGFR) is calculated using the 2020 CKD-EPI creatinine equation. This equation utilizes serum creatinine, sex, and age as parameters. The creatinine assay has traceable calibration to isotope dilution-mass spectrometry. Refer to KDIGO guidelines for clinical interpretation. In patients with unstable renal function, e.g. those with acute kidney injury, the eGFR may not accurately reflect actual GFR. Performed By: #### 2 4331-1, 27501-4 ####[facility] [id number] [place] [address] [place] Glucose [Mass/Vol] 201 mg/dL High 74-99 [facility] Comment on above: Order Comment: Speci men Type: BLOOD SPECIMENOrdering Facility: [facility] Address: [address] [place] [address] Result Comment: The [place] [employer] (ADA) provides guidance for cutoff values for fasting glucose and random glucose. The ADA defines fasting as no caloric intake for at least 8 hours. Fasting plasma glucose results between 100 to 125 mg/dL indicate increased risk for diabetes (prediabetes). Fasting plasma glucose results greater than or equal to 126 mg/dL meet the criteria for diagnosis of diabetes. In the absence of unequivocal hyperglycemia, results should be confirmed by repeat testing. In a patient with classic symptoms of hyperglycemia or hyperglycemic crisis, random plasma glucose results greater than or equal to 200 mg/dL meet the criteria for diagnosis of diabetes. Reference: Standards of Medical Care in Diabetes 2016, [place] [employer]. Diabetes Care. 2016.39(Suppl 1). Performed By: #### 2 4331-1, 45683-3 ####[facility] LABCLIA [id number] [place] [address] [place] Potassium [Moles/Vol] 4.4 mmol/L Normal 3.7-5.1 [facility] Comment on above: Order Comment: Speci men Type: BLOOD SPECIMENOrdering Facility: [facility] Address: [address] [place] [address] Performed By: #### 2 4331-, 91960-2 ####[facility] LABCLIA [id number] [place] [address] [place] Sodium [Moles/Vol] 137 mmol/L Normal 136-144 [facility] Comment on above: Order Comment: Speci men Type: BLOOD SPECIMENOrdering Facility: [facility] Address: [address] [place] [address] Performed By: #### 2 4331-, 39579-0 ####[facility] LABCLIA [id number] [place] [address] [place] Urea nitrogen [Mass/Vol] 23 mg/dL Normal 9-24 [facility] Comment on above: Order Comment: Speci men Type: BLOOD SPECIMENOrdering Facility: [facility] Address: [address] [place] [address] Performed By: #### 2 4331-1, 53327-8 ####[facility] LABIA [id number] [place] [address] [place] CBC panel Auto (Bld)on 04-21 Erythrocyte distribution width (RBC) [Ratio] 12.6 % Normal 11.5-15.0 [facility] Comment on above: Order Comment: Speci men Type: BLOOD SPECIMENOrdering Facility: [facility] Address: [address] [place] [address] Performed By: #### 5 8410-2 ####[facility] LABIA [id number] [place] [address] [place] Hematocrit (Bld) [Volume fraction] 46.0 % Normal 39.0-51.0 [facility] Comment on above: Order Comment: Speci men Type: BLOOD SPECIMENOrdering Facility: [facility] Address: [address] [place] [address] Performed By: #### 5 8410-2 ####[facility] LABIA [id number] [place] [address] [place] Hemoglobin (Bld) [Mass/Vol] 16.2 g/dL Normal 13.0-17.0 [facility] Comment on above: Order Comment: Speci men Type: BLOOD SPECIMENOrdering Facility: [facility] Address: [address] [place] [address] Performed By: #### 5 8410-2 ####[facility] LABIA [id number] [place] [address] [place] MCH (RBC) [Entitic mass] 31.7 pg Normal 26.0-34.0 [facility] Comment on above: Order Comment: Speci men Type: BLOOD SPECIMENOrdering Facility: [facility] Address: [address] [place] [address] Performed By: #### 5 8410-2 ####[facility] LABIA [id number] [place] [address] [place] MCHC (RBC) [Mass/Vol] 35.2 g/dL Normal 30.5-36.0 [facility] Comment on above: Order Comment: Speci men Type: BLOOD SPECIMENOrdering Facility: [facility] Address: [address] [place] [address] Performed By: #### 5 8410-2 ####[facility] LABIA [id number] [place] [address] [place] MCV (RBC) [Entitic vol] 90.0 fL Normal 80.0-100.0 [facility] Comment on above: Order Comment: Speci men Type: BLOOD SPECIMENOrdering Facility: [facility] Address: [address] [place] [address] Performed By: #### 5 8410-2 ####[facility] LABIA [id number] [place] [address] [place] Nucleated RBC (Bld) [#/Vol] 10*3/uL Normal <0.01 [facility] Comment on above: Order Comment: Speci men Type: BLOOD SPECIMENOrdering Facility: [facility] Address: [address] [place] [address] Performed By: #### 5 8410-2 ####[facility] LABIA [id number] [place] [address] [place] Platelet mean volume (Bld) [Entitic vol] 10.7 fL Normal 9.0-12.7 [facility] Comment on above: Order Comment: Speci men Type: BLOOD SPECIMENOrdering Facility: [facility] Address: [address] [place] [address] Performed By: #### 5 8410-2 ####[facility] LABIA [id number] [place] [address] [place] Platelets (Bld) [#/Vol] 221 10*3/uL Normal 150-400 [facility] Comment on above: Order Comment: Speci men Type: BLOOD SPECIMENOrdering Facility: [facility] Address: [place] [address] Performed By: #### 5 8410-2 ####[facility] LABCLIA [id number] [place] [address] [place] RBC (Bld) [#/Vol] 5.11 10*6/uL Normal 4.20-6.00 [facility] Comment on above: Order Comment: Speci men Type: BLOOD SPECIMENOrdering Facility: [facility] Address: [place] [address] Performed By: #### 5 8410-2 ####[facility] LABCLIA [id number] [place] [address] [place] WBC (Bld) [#/Vol] 10.53 10*3/uL Normal 3.70-11.00 [facility] Comment on above: Order Comment: Speci men Type: BLOOD SPECIMENOrdering Facility: [facility] Address: [address] [place] [address] Performed By: #### 5 8410-2 ####[facility] LABCLIA [id number] [place] [address] [place] CNOVon 04-21-2023 CNOV Office Visit ([facility] ) MARGIE HAYNES ([id number]) 1975 M Date Time Provider Department 04/21/23 1:30 PM BRIAN HAWLEY During your visit today, we recorded the following information about you: Pulse Blood pressure Weight Height 82/minute 113/76 113.4 kg 1.727 m Brian Hawley MD 04/21/2023 5:34 PM Signed [facility] Department of Cardiovascular Medicine SECTION OF CARDIAC PACING and ELECTROPHYSIOLOGY OUTPATIENT VISIT DATE April 21, 2023 OUTPATIENT VISIT TYPE ESTABLISHED PRIMARY CARE PHYSICIAN: Hiram Sykes [address] [place] [address] REFERRING PHYSICIAN: Brian Hawley [address] [facility] [address] CHIEF COMPLAINT: HISTORY OF PRESENT ILLNESS: Mr. Haynes is a 48 year old male who presents today for follow-up visit. NURSING INTAKE HISTORY: Margie Haynes presents today for follow up visit and device management. He has a past medical history of syncope s/p dual chamber PPM (2008), HI with CAD with normal coronaries, RENETTA on CPAP, and renal cancer. His device reached [employer]/Kyrie on 02/19/23. He is scheduled for generator change on 05/16/23. Patient states that he has been feeling well. His spouse notes an increase in generalized fatigue noting that he has fallen asleep when going out for dinner. He denies abdominal distention, chest pain, shortness of breath, orthopnea, cough, edema, palpitations, PND, lightheadedness or syncope. 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 PAST MEDICAL HISTORY Diagnosis Date Atrial fibrillation (HCC) Controlled type 2 diabetes mellitus without complication, without long-term current use of insulin (HCC) 12/08/2015 Coronary artery disease 2014 hx HI 2013 History of pacemaker 2008 a fib Left kidney mass HI (myocardial infarction) (HCC) 2014 Nephrolithiasis 1996 passed spontaneously RENETTA on CPAP Renal cancer (HCC) 11/20/15 left, pending surgery PAST SURGICAL HISTORY Procedure Laterality Date ADENOIDECTOMY SECONDARY AGE 10/> age 3 APPENDECTOMY 02/2018 CARDIAC PACEMAKER PLACEMENT HX 2009 HEART CATHETERIZATION 2014 HI, neg PAST SURGICAL HISTORY OF 12/2015 ROBOTIC LAPAROSCOPIC NEPHRECTOMY RADICAL (Left) SOCIAL HISTORY Social History Tobacco Use Smoking status: Never Smokeless tobacco: Never Vaping Use Vaping Use: Never used Substance Use Topics Alcohol use: Yes Comment: minimal ( 6 pack will last for 1 year) Drug use: No FAMILY HISTORY Problem Relation Age of Onset other (Cancer, cervical/ intestinal[other]) Mother other (Cancer, pancreatic[other]) Maternal Grandmother 73 yrs other (Cancer, leukemia[other]) Paternal Grandmother 70 yrs Diabetes Maternal Uncle other (TIA[other]) Brother due to chemicals on job COPD Father 86 yrs Cataract Father ALLERGIES: ALLERGIES Allergen Reactions Amoxicillin Unknown Rash at 3 years of age. Has tolerated augmentin in the past. Metformin GI Upset MEDICATIONS: atorvastatin (LIPITOR) 20 mg tablet take 1 tablet by mouth every day lisinopril (ZESTRIL) 10 mg tablet take 1 tablet by mouth every day OZEMPIC 0.25 mg or 0.5 mg (2 mg/3 mL) pen 0.5 mg once weekly LEVEMIR FLEXPEN 100 unit/mL (3 mL) injection pen 15 units once daily at nighttime metFORMIN ER (GLUCOPHAGE XR) 500 mg 24 hr tablet Take 1 tablet by mouth twice daily with meals. May gradually increase up to 4 tablets daily as tolerated. PixstaTOP[employer]Divvy ULTRA TEST test strip USE TO CHECK BLOOD SUGARS TWICE DAILY OR DIRECTED. glimepiride (AMARYL) 4 mg tablet Take 1 tablet by mouth twice daily with meals. CPAP BiPAP supplies including large mask, tubing and headgear for BiPAP Auto Remstar F10 machine aspirin, enteric coated (ECOTRIN LOW STRENGTH) 81 mg EC tablet Take 1 tablet by mouth once daily. cetirizine (ZYRTEC) 10 mg tablet Take 1 tablet by mouth once daily. lancets (ONE TOUCH DELInnoVital Systems) 33 gauge USE TO CHECK BLOOD SUGARS TWICE DAILY OR DIRECTED. Maria Mann RN EP STAFF NOTE: Please note: This note has been produced using speech recognition software and may contain errors related to that system including grammar, punctuation, spelling, gender and words and phrases that may be inappropriate Consultation requested by Dr. Smith for an opinion regarding management of a previously placed PPM and my final recommendations will be communicated back to the requesting physician by way of shared medical record OR letter via fax/US mail. I have reviewed the above information and examined the patient and confirm the above with the following additions/modifications. ECG: PE: Vitals: BP 113/76 Pulse 82 Ht 172.7 cm (5' 8) Wt 113.4 kg (250 lb) BMI 38.01 kg/m? General: Appears well nourished. In no acute distress. L (more content not included)... Normal [facility] ECG COMPLETEon 04-21-2023 ECG COMPLETE Ventricular Rate : 8 2 BPM Atrial Rate : 82 BPM P-R Interval : 156 ms QRS Duration : 90 ms Q-T Interval : 366 ms QTC Calculation(Bazett) : 427 ms Calculated P [place] : 54 degrees Calculated R [place] : 49 degrees Calculated T [place] : 74 degrees NORMAL SINUS RHYTHM NONSPECIFIC T WAVE ABNORMALITY ABNORMAL ECG Confirmed by CASEY VILLAGOMEZ MD ([id number]) on 05/06/2023 11:37:38 AM NAME : MARGIE HAYNES PID : [id number] : 1975 Gender : Male Race : ORD : [id number] Procedure Date : Apr 21 2023 12:46:05 Edit Date : May 06 2023 11:37:40 Diagnosis: NORMAL SINUS RHYTHM NONSPECIFIC T WAVE ABNORMALITY ABNORMAL ECG Confirmed by CASEY VILLAGOMEZ MD ([id number]) on 05/06/2023 11:37:38 AM Test Reason : Location : 314 : [facility] Overread By : CASEY VILLAGOMEZ MD Edited By : CASEY VILLAGOMEZ MD Referred By : BRIAN HAWLEY Acquired by : DENNIS OLIVO Normal [facility] HbA1c (Bld)on 04-21-2023 Average glucose Estimated from glycated hemoglobin (Bld) [Mass/Vol] 160 mg/dL Normal [facility] Comment on above: Order Comment: Nelda roberson Type: BLOOD SPECIMENOrdering Facility: [facility] Address: [address] [place] [address] Result Comment: eAG: (Estimated average glucose) is a calculated value from HgbA1c and is direct marketing representative of the average blood glucose level in the last 2-3 month period. Performed By: #### 5 5454-3 ####[facility] LABCLIA [id number] [facility] [id number] [place] [address] [place] HbA1c (Bld) [Mass fraction] 7.2 % High 4.3-5.6 [facility] Comment on above: Order Comment: Danai men Type: BLOOD SPECIMENOrdering Facility: [facility] Address: [address] [place] [address] Result Comment: Amer ican Diabetes Association guidelines indicate that patients with HgbA1c in the range 5.7-6.4% are at increased risk for development of diabetes, and intervention by lifestyle modification may be beneficial. HgbA1c greater or equal to 6.5% is considered diagnostic of diabetes. Performed By: #### 5 5454-3 ####[facility] LABCLIA [id number] [place] [address] [place] Lipid 1996 panelon 3 Cholesterol [Mass/Vol] 131 mg/dL Normal <200 [facility] Comment on above: Order Comment: Speci men Type: BLOOD SPECIMENOrdering Facility: [facility] Address: [address] [place] [address] Result Comment: <200 mg/dL, Desirable 200-239 mg/dL, Borderline high >239 mg/dL, High Performed By: #### 2 4331-1, 30049-7 ####[facility] LABCLIA [id number] [address] [place] Cholesterol in HDL [Mass/Vol] 35 mg/dL Low >39 [facility] Comment on above: Order Comment: Nelda roberson Type: BLOOD SPECIMENOrdering Facility: [facility] Address: [address] [place] [address] Result Comment: 40-5 9 mg/dL, Acceptable >59 mg/dL, High: Negative risk factor for coronary heart disease <40 mg/dL, Low: Positive risk factor for coronary heart disease Performed By: #### 2 4331-1, 52811-3 ####[facility] LABCLIA [id number] [address] [place] Cholesterol in LDL [Mass/Vol] 45 mg/dL Normal <100 [facility] Comment on above: Order Comment: Nelda men Type: BLOOD SPECIMENOrdering Facility: [facility] Address: [address] [place] [address] Result Comment: <100 mg/dL, Optimal 100-129 mg/dL, Near optimal/above optimal 130-159 mg/dL, Borderline high 160-189 mg/dL, High >189 mg/dL, Very high Secondary prevention optimal LDL Cholesterol levels are recommended to be < 70 mg/dL Performed By: #### 2 4331-1, 19904-8 ####[facility] LABCLIA [id number] [place] [address] [place] Cholesterol in LDL/Cholesterol in HDL [Mass ratio] 1.29 {ratio} Normal <2.54 [facility] Comment on above: Order Comment: Speczoltan men Type: BLOOD SPECIMENOrdering Facility: [facility] Address: [address] [place] [address] Result Comment: Refe rence: 1. National Cholesterol Education Program ATP III Guideline At-A-Glance Quick Desk Reference: National Heart, Lung, and Blood Meally. National Institutes of Health. 2001: NIH Publication No. 01-3305. 2. An International Atherosclerosis Society position paper: global recommendations for the management of dyslipidemia: executive summary, Atherosclerosis. 2014: 232(2):410-413. Performed By: #### 2 4331-1, 89958-3 ####[facility] LABIA [id number] [place] [address] [place] Cholesterol in VLDL [Mass/Vol] 51 mg/dL High <30 [facility] Comment on above: Order Comment: Nelda roberson Type: BLOOD SPECIMENOrdering Facility: [facility] Address: [address] [place] [address] Performed By: #### 2 4331-1, 38784-0 ####[facility] LABIA [id number] [place] [address] [place] Cholesterol non HDL [Mass/Vol] 96 mg/dL Normal <130 [facility] Comment on above: Order Comment: Nelda roberson Type: BLOOD SPECIMENOrdering Facility: [facility] Address: [address] [place] [address] Result Comment: <130 mg/dL, Optimal 130-159 mg/dL, Near optimal/above optimal 160-189 mg/dL, Borderline high 190-219 mg/dL, High >219 mg/dL, Very high Secondary prevention optimal non HDL Cholesterol levels are recommended to be <100 mg/dL Performed By: #### 2 4331-1, 72787-3 ####[facility] LABCLIA [id number] [place] [address] [place] Cholesterol.total/C holesterol in HDL [Mass ratio] 3.74 {ratio} Normal <5.10 [facility] Comment on above: Order Comment: Speci men Type: BLOOD SPECIMENOrdering Facility: [facility] Address: [address] [place] [address] Performed By: #### 2 4331-1, 17520-6 ####[facility] LABIA [id number] [place] [address] [place] FASTING TIME 0 hrs Normal [facility] Comment on above: Order Comment: Speci men Type: BLOOD SPECIMENOrdering Facility: [facility] Address: [address] [place] [address] Result Comment: No F asting Performed By: #### 2 4331-1, 92124-2 ####[facility] LABIA [id number] [place] [address] [place] Triglyceride [Mass/Vol] 256 mg/dL High <150 [facility] Comment on above: Order Comment: Speci men Type: BLOOD SPECIMENOrdering Facility: [facility] Address: [address] [place] [address] Result Comment: <150 mg/dL, Normal 150-199 mg/dL, Borderline high 200-499 mg/dL, High >499 mg/dL, Very high Performed By: #### 2 4331-1, 59708-4 ####[facility] LABIA [id number] [place] [address] [place] No Panel Informationon 04-21 BLANK _ [facility] Implant Date 02/06/2009 [facility] Model 4076 CapsureFix [facility] CHECKon Battery Impedance (ohms) 9692 ohm [facility] Battery Voltage (volts) 2.58 V [facility] Braxton RA Sensing Refractory Period (ms) 250 ms [facility] Braxton RV Pacing Amplitude (volts) 2.000 V [facility] Braxton RV Pacing Polarity BI [facility] Braxton RV Pacing Pulse Width (ms) 0.40 ms [facility] Braxton RV Sensing Amplitude (mvolts) 5.60 mV [facility] Braxton RV Sensing Polarity BI [facility] Braxton RV Sensing Refractory Period (ms) 230 ms [facility] Hysteresis Rate (bpm) Off [facility] Lead1 Mfg MDT [facility] Lead2 Mfg MDT [facility] Location RA [facility] Location RV [facility] Lower Rate (bpm) 65 {beats}/min [facility] Model ADDR01 Adapta [facility] Pacemaker Dependent? NO [facility] Pacing Mode VVI [facility] PM-Device Mfg MDT [facility] PM-Percent Pacing (V) 0 % [facility] PM-Rate Modulation Acceleration Reaction 30 s [facility] PM-Rate Modulation ADL Rate (bpm) 105 {beats}/min [facility] PM-Rate Modulation Deceleration Exercise [facility] PM-Rate Modulation Ravalli 3 [facility] PM-Rate Modulation Threshold Medium/Low [facility] Rhythm sinus rhythm [facility] Serial Number [id number] [facility] Thresh RV Capture Amplitude (volts) 1.000 V [facility] Thresh RV Capture Duration (ms) 0.40 ms [facility] Thresh RV Sensing Amplitude (mvolts) 15.67 mV [facility] Tracking Rate (bpm) 115 {beats}/min [facility] TYPE AND SCREEN,30 DAYon ABO A Normal [facility] Comment on above: Order Comment: Speci men Type: BLOOD SPECIMENOrdering Facility: [facility] Address: [address] [place] [address] Performed By: #### T SCR30 ####[facility] BLOOD BANKCLIA [id number] [place] [address] [place] HISTORICAL AB SCR STATUS Negative Normal [facility] Comment on above: Order Comment: Speci men Type: BLOOD SPECIMENOrdering Facility: [facility] Address: [address] [place] [address] Performed By: #### T SCR30 ####[facility] BLOOD BANKCLIA [id number] [address] [place] Rh Nom (Bld) Positive Normal [facility] Comment on above: Order Comment: Speci men Type: BLOOD SPECIMENOrdering Facility: [facility] Address: [address] [place] [address] Performed By: #### T SCR30 ####[facility] MA[facility] BLOOD BANKCLIA [id number] [address] [place] XR CHEST 2V FRONTAL/LATon XR CHEST 2V FRONTAL/LAT * * *Final Report* * * DATE OF EXAM: Apr 21 2023 12:58PM JIX [id number] - XR CHEST 2V FRONTAL/LAT / PROCEDURE REASON: Vasovagal syncope * * * * Physician Interpretation * * * * EXAMINATION: CHEST RADIOGRAPH (2 VIEW FRONTAL and LATERAL) CLINICAL HISTORY: Vasovagal syncope MQ: [id number] EXAM DATE/TIME: 04/21/2023 12:58 PM COMPARISON: Chest radiograph(s) dated 04/08/2018 RESULTS: Lines, tubes, and devices: A dual-chamber pacemaker is noted with leads overlying the right atrium and right ventricle. Lungs and pleura: Lungs are clear of focal consolidation. No pleural effusions or pneumothorax is identified. Cardiomediastinal silhouette: The cardiomediastinal silhouette is within normal limits. Other: The vertebral body heights appear symmetric and well-maintained. IMPRESSION: No acute radiographic findings in the chest. Emergency Specialist: PSCB Transcribe Date/Time: Apr 21 2023 3:15P Dictated by : CHANTAL KWON MD This examination was interpreted and the report reviewed and electronically signed by: CHANTAL KWON MD on Apr 21 2023 3:16PM EST [id number] Normal [facility] CNCOon 03-25-2023 CNCO Letter Text Normal [facility] CNPNon 03-10-2023 CNPN Telephone (FAMDNA) MARGIE HAYNES ([id number]) 1975 M Date Time Provider Department 03/10/23 HIRAM SYKES During your visit today, we recorded the following information about you: Bailey Abarca MA 03/10/2023 2:46 PM Signed Received 03-07-23 from [employer]. Placed in provider's inbox for review. Route to SOWMYA scanning Hiram Sykes MD 03/10/2023 4:08 PM Signed Diabetic eye exam No diabetic retinopathy Allergies As of Date: 03/10/2023 Noted Allergy Reaction AMOXICILLIN 03/21/2015 16 - Unknown Comments: Rash at 3 years of age. Has tolerated augmentin in the past. METFORMIN 06/22/2019 8 - GI Upset Date Reviewed: 12/30/2022 Reviewed by: Arnold Estrella LPN - Fully Assessed Reason for Visit: outside notes [Other] Prescriptions as of 03/10/2023 - lisinopril (ZESTRIL) 10 mg tablet take 1 tablet by mouth every day - OZEMPIC 0.25 mg or 0.5 mg (2 mg/3 mL) pen 0.5 mg once weekly - LEVEMIR FLEXPEN 100 unit/mL (3 mL) injection pen 15 units once daily at nighttime - metFORMIN ER (GLUCOPHAGE XR) 500 mg 24 hr tablet Take 1 tablet by mouth twice daily with meals. May gradually increase up to 4 tablets daily as tolerated. - diphenoxylate-atropine (LOMOTIL) 2.5-0.025 mg per tablet Take 1 tablet by mouth four times daily as needed for diarrhea for up to 30 days. - PixstaTOUCH ULTRA TEST test strip USE TO CHECK BLOOD SUGARS TWICE DAILY OR DIRECTED. - lancets (ONE TOUCH DELICA) 33 gauge USE TO CHECK BLOOD SUGARS TWICE DAILY OR DIRECTED. - glimepiride (AMARYL) 4 mg tablet Take 1 tablet by mouth twice daily with meals. - atorvastatin (LIPITOR) 20 mg tablet Take 1 tablet by mouth once daily. - Blood-Glucose Meter (PixstaTOUCH ULTRAMINI) monitoring kit Use to check blood sugars twice daily or as directed. - CPAP BiPAP supplies including large mask, tubing and headgear for BiPAP Auto Remstar F10 machine - aspirin, enteric coated (ECOTRIN LOW STRENGTH) 81 mg EC tablet Take 1 tablet by mouth once daily. - cetirizine (ZYRTEC) 10 mg tablet Take 1 tablet by mouth once daily. Problem List As Of Date 03/10/2023 Noted Resolved History of pacemaker [Z95.0] RENETTA on CPAP [G47.33] Fatty infiltration of liver [K76.0] 11/29/2015 Uncontrolled type 2 diabetes mellitus with hype*12/08/2015 Left kidney mass [N28.89] 01/22/2016 H/O atrial fibrillation without current medicat* Screening for genitourinary condition [Z13.89] 12/25/2015 02/13/2016 Microscopic hematuria [R31.29] 12/25/2015 Neoplasm of uncertain behavior of left kidney [*12/25/2015 01/22/2016 Malignant neoplasm of left kidney, except renal*01/22/2016 S/p nephrectomy [Z90.5] 03/16/2016 Obesity, Class III, BMI 40-49.9 (morbid obesity*08/12/2017 Coronary artery disease involving lytton szymanski*01/07/2018 Low testosterone in male [R79.89] 11/24/2018 Encounter Status:Closed by HIRAM SYKES on 03/10/23 [facility] 03-03-2023 [facility] Telephone (EPSMN) MARGIE HAYNES ([id number]) 1975 M Date Time Provider Department 03/03/23 BRIAN HAWLEY During your visit today, we recorded the following information about you: Brittney Bailey RN 03/03/2023 2:04 PM Signed ----- Message from Brian Hawley MD sent at 02/24/2023 8:38 AM EDT ----- Regarding: FW: Pacer @ KYRIE Agree with below. Anyone can do. No meds to hold. bb ----- Message ----- From: Cris Calzada RN Sent: 02/24/2023 8:13 AM EDT To: Jeanette Valencia RN; Brian Hawley MD Subject: Pacer @ KYRIE EPS Lab Request: Device Patient: Margie Haynes Requested by: Cris Calzada RN Requesting Physician: Brian Hawley MD Procedure Physician: Brian Hawley MD Procedure Requested: PPM change CPT:01010 Dual Lead Date of Last HANDP? 07/15/2022 Indications / Dx for Procedure: Other ICD: KYRIE Procedure Time Frame: 1 month Estimated length of case: 1 HOUR Device Company: [employer] Research Patient: No Type of Bed: SHORTSTAY (4-8 HRS) Medication to be stopped(please specify medication/timeframe): Device now programmed VVI 65bpm Brittney Bailey RN 03/03/2023 2:06 PM Signed Called and spoke to the patient's , offered and accepted the date of 05/16/[address] Hawley. Please schedule the patient for OPD, Device Clinic, EKG, CXR AND Labs (BMP,CBC,3o day TANDS) within 30 days prior to the procedure date. Brittney Bailey RN Allergies As of Date: 03/03/2023 Noted Allergy Reaction AMOXICILLIN 03/21/2015 16 - Unknown Comments: Rash at 3 years of age. Has tolerated augmentin in the past. METFORMIN 06/22/2019 8 - GI Upset Date Reviewed: 12/30/2022 Reviewed by: Arnold Estrella LPN - Fully Assessed Reason for Visit: Schedule Surgery [1330] Cmt: EPS-PPM Change Prescriptions as of 03/03/2023 - OZEMPIC 0.25 mg or 0.5 mg (2 mg/3 mL) pen 0.5 mg once weekly - LEVEMIR FLEXPEN 100 unit/mL (3 mL) injection pen 15 units once daily at nighttime - metFORMIN ER (GLUCOPHAGE XR) 500 mg 24 hr tablet Take 1 tablet by mouth twice daily with meals. May gradually increase up to 4 tablets daily as tolerated. - diphenoxylate-atropine (LOMOTIL) 2.5-0.025 mg per tablet Take 1 tablet by mouth four times daily as needed for diarrhea for up to 30 days. - ONETOUCH ULTRA TEST test strip USE TO CHECK BLOOD SUGARS TWICE DAILY OR DIRECTED. - lancets (ONE TOUCH DELICA) 33 gauge USE TO CHECK BLOOD SUGARS TWICE DAILY OR DIRECTED. - glimepiride (AMARYL) 4 mg tablet Take 1 tablet by mouth twice daily with meals. - atorvastatin (LIPITOR) 20 mg tablet Take 1 tablet by mouth once daily. - lisinopril (ZESTRIL, PRINIVIL) 10 mg tablet Take 1 tablet by mouth once daily. - Blood-Glucose Meter (WatchwithUCH ULTRAMINI) monitoring kit Use to check blood sugars twice daily or as directed. - CPAP BiPAP supplies including large mask, tubing and headgear for BiPAP Auto Remstar F10 machine - aspirin, enteric coated (ECOTRIN LOW STRENGTH) 81 mg EC tablet Take 1 tablet by mouth once daily. - cetirizine (ZYRTEC) 10 mg tablet Take 1 tablet by mouth once daily. Problem List As Of Date 03/03/2023 Noted Resolved History of pacemaker [Z95.0] RENETTA on CPAP [G47.33] Fatty infiltration of liver [K76.0] 11/29/2015 Uncontrolled type 2 diabetes mellitus with hype*12/08/2015 Left kidney mass [N28.89] 01/22/2016 H/O atrial fibrillation without current medicat* Screening for genitourinary condition [Z13.89] 12/25/2015 02/13/2016 Microscopic hematuria [R31.29] 12/25/2015 Neoplasm of uncertain behavior of left kidney [*12/25/2015 01/22/2016 Malignant neoplasm of left kidney, except renal*01/22/2016 S/p nephrectomy [Z90.5] 03/16/2016 Obesity, Class III, BMI 40-49.9 (morbid obesity*08/12/2017 Coronary artery disease involving lytton szymanski*01/07/2018 Low testosterone in male [R79.89] 11/24/2018 Encounter Status:Closed by BRITTNEY BAEZ on 03/03/23 Normal [facility] No Panel Informationon 02-24 BLANK _ [facility] Implant Date 02/06/2009 [facility] Model [facility]6 [facility] CHECKon Battery Impedance (ohms) 8483 ohm [facility] Battery Voltage (volts) 2.62 V [facility] Braxton RA Sensing Refractory Period (ms) 250 ms [facility] Braxton RV Pacing Amplitude (volts) 2.000 V [facility] Braxton RV Pacing Polarity BI [facility] Braxton RV Pacing Pulse Width (ms) 0.40 ms [facility] Braxton RV Sensing Amplitude (mvolts) 5.60 mV [facility] Braxton RV Sensing Polarity BI [facility] Braxton RV Sensing Refractory Period (ms) 230 ms [facility] Hysteresis Rate (bpm) Off [facility] Lead1 Mfg MDT [facility] Lead2 Mfg MDT [facility] Location RA [facility] Location RV [facility] Lower Rate (bpm) 65 {beats}/min [facility] Model ADDR01 Adapta [facility] Pacemaker Dependent? NO [facility] Pacing Mode VVI [facility] PM-Device Mfg MDT [facility] PM-Percent Pacing (V) 0 % [facility] PM-Rate Modulation Acceleration Reaction 30 s [facility] PM-Rate Modulation ADL Rate (bpm) 105 {beats}/min [facility] PM-Rate Modulation Deceleration Exercise [facility] PM-Rate Modulation [place] 3 [facility] PM-Rate Modulation Threshold Medium/Low [facility] Rhythm Sinus rhythm [facility] Serial Number [id number] [facility] Tracking Rate (bpm) 115 {beats}/min [facility] No Panel Informationon 01-16 BLANK _ [facility] Implant Date 02/06/2009 [facility] Model 4076 CapsureFix [facility] CHECKon AV Delay Adaptive Paced Minimum (ms) 180 ms [facility] AV Delay Adaptive Sensed Minimum (ms) 150 ms [facility] AV Delay Adaptive Status DISABLED [facility] Battery Impedance (ohms) 6742 ohm [facility] Battery Voltage (volts) 2.62 V [facility] Braxton RA Pacing Amplitude (volts) 1.500 V [facility] Braxton RA Pacing Polarity BI [facility] Braxton RA Pacing Pulse Width (ms) 0.40 ms [facility] Braxton RA Sensing Amplitude (mvolts) 0.70 mV [facility] Braxton RA Sensing Blanking Period (ms) 180 ms [facility] Braxton RA Sensing Polarity BI [facility] Braxton RA Sensing Refractory Period (ms) 250 ms [facility] Braxton RV Pacing Amplitude (volts) 2.000 V [facility] Braxton RV Pacing Polarity BI [facility] Braxton RV Pacing Pulse Width (ms) 0.40 ms [facility] Braxton RV Sensing Amplitude (mvolts) 5.60 mV [facility] Braxton RV Sensing Blanking Period (ms) 28 ms [facility] Braxton RV Sensing Polarity BI [facility] Braxton RV Sensing Refractory Period (ms) 230 ms [facility] Lead1 Mfg MDT [facility] Lead2 Mfg MDT [facility] Location RA [facility] Location RV [facility] Lower Rate (bpm) 40 {beats}/min [facility] Model ADDR01 Adapta [facility] Pacemaker Dependent? NO [facility] PM-Device Mfg MDT [facility] PM-PMT Intervention ENABLED [facility] PM-PVC Intervention ENABLED [facility] PM-Rate Modulation Acceleration Reaction 30 s [facility] PM-Rate Modulation ADL Rate (bpm) 105 {beats}/min [facility] PM-Rate Modulation Deceleration Exercise [facility] PM-Rate Modulation [place] 3 [facility] PM-Rate Modulation Threshold Medium/Low [facility] Rhythm Sinus rhythm [facility] Serial Number [id number] [facility] Thresh RA Capture Amplitude (volts) 0.625 V [facility] Thresh RA Capture Duration (ms) 0.40 ms [facility] Thresh RA Sensing Amplitude (mvolts) 4.00 mV [facility] Thresh RV Capture Amplitude (volts) 0.750 V [facility] Thresh RV Capture Duration (ms) 0.40 ms [facility] Thresh RV Sensing Amplitude (mvolts) 11.20 mV [facility] Tracking Rate (bpm) 130 {beats}/min [facility] CNOVon 12[facility]30[facility]2022 [facility] MARGIE HAYNES ([id number]) 1975 M Date Time Provider Department 12/30/22 3:00 PM MARGIE SMITH [place] During your visit today, we recorded the following information about you: Pulse Blood pressure Weight Height 87/minute 108/72 117.5 kg 1.727 m Margie Smith, DO 12/30/2022 3:50 PM Signed [facility] Isreal Rausch Department of Cardiovascular Medicine SECTION OF [facility] A[facility]BEL: 06/07/2022 HPI: Margie Haynes is a 47 year old male who has been lost to follow-up after moving to [place] and then apparently moving back. He has not had his device checked since moving. He is here today to reestablish cardiac care and for follow up of known coronary artery disease. He had a PPM implanted for syncope episodes after an abnormal Tilt Table 01/2009 in [place]. We do not have any of that data as of yet. 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 He had a LHC at that time and his coronaries were said to be normal. He had classic chest heaviness with arm discomfort at the time of his ED presentation. He has been doing well without any complaints since last visit. His last pacer check in our system was 07/2022 and KYRIE estimated in 16 months. He was not pacer dependent. He is still working on his uncontrolled glucose and has a referral to endocrinology. The patient denies any regular aerobic exercise Patient denies SOB, chest pain, dizziness, lightheadedness, palpitations, lower extremity edema, PND, orthopnea, presyncope, syncope or claudication symptoms. PAST MEDICAL HISTORY Diagnosis Date Atrial fibrillation (HCC) Controlled type 2 diabetes mellitus without complication, without long-term current use of insulin (HCC) 12/08/2015 Coronary artery disease 2013 hx HI 2013 History of pacemaker 2008 a fib Left kidney mass HI (myocardial infarction) (HCC) 2013 Nephrolithiasis 1996 passed spontaneously RENETTA on CPAP Renal cancer (HCC) 11/20/15 left, pending surgery PAST SURGICAL HISTORY Procedure Laterality Date ADENOIDECTOMY SECONDARY AGE 10/> age 3 APPENDECTOMY 02/2018 CARDIAC PACEMAKER PLACEMENT HX 2009 HEART CATHETERIZATION 2014 HI, neg PAST SURGICAL HISTORY OF 12/2015 ROBOTIC LAPAROSCOPIC NEPHRECTOMY RADICAL (Left) FAMILY HISTORY Problem Relation Age of Onset other (Cancer, cervical/ intestinal[other]) Mother other (Cancer, pancreatic[other]) Maternal Grandmother 73 yrs other (Cancer, leukemia[other]) Paternal Grandmother 70 yrs Diabetes Maternal Uncle other (TIA[other]) Brother due to chemicals on job COPD Father 86 yrs Cataract Father SOCIAL HISTORY Social History Tobacco Use Smoking status: Never Smokeless tobacco: Never Vaping Use Vaping Use: Never used Substance Use Topics Alcohol use: Yes Comment: minimal ( 6 pack will last for 1 year) Drug use: No ALLERGIES: Amoxicillin and Metformin CURRENT MEDICATIONS: Current Outpatient Medications Medication Sig OZEMPIC 0.25 mg or 0.5 mg (2 mg/3 mL) pen 0.5 mg once weekly LEVEMIR FLEXPEN 100 unit/mL (3 mL) injection pen 15 units once daily at nighttime metFORMIN ER (GLUCOPHAGE XR) 500 mg 24 hr tablet Take 1 tablet by mouth twice daily with meals. May gradually increase up to 4 tablets daily as tolerated. diphenoxylate-atropine (LOMOTIL) 2.5-0.025 mg per tablet Take 1 tablet by mouth four times daily as needed for diarrhea for up to 30 days. WatchwithUCH ULTRA TEST test strip USE TO CHECK BLOOD SUGARS TWICE DAILY OR DIRECTED. lancets (ONE TOUCH DELInnoVital Systems) 33 gauge USE TO CHECK BLOOD SUGARS TWICE DAILY OR DIRECTED. glimepiride (AMARYL) 4 mg tablet Take 1 tablet by mouth twice daily with meals. atorvastatin (LIPITOR) 20 mg tablet Take 1 tablet by mouth once daily. lisinopril (ZESTRIL, PRINIVIL) 10 mg tablet Take 1 tablet by mouth once daily. Blood-Glucose Meter (WatchwithUCH ULTRAMINI) monitoring kit Use to check blood sugars twice daily or as directed. CPAP BiPAP supplies including large mask, tubing and headgear for BiPAP Auto Remstar F10 machine aspirin, enteric coated (ECOTRIN LOW STRENGTH) 81 mg EC tablet Take 1 tablet by mouth once daily. cetirizine (ZYRTEC) 10 mg tablet Take 1 tablet by mouth once daily. No current facility-administered medications for this visit. ROS: Card: See present history. Pulm: Negative for cough, hemoptysis, wheezing, COPD, dyspnea or shortness of breath Gastro: No nausea, vomiting, or diarrhea GenUr: No history of dysuria, frequency or incontinence Endo: Negative for cold or heat intolerance, polyuria or polydipsia. Neuro: no focal weakness, focal sensory loss, headache, visual changes, seizure activity, ataxia, speech/language loss. Musculoskeletal: Negative for joint or mus (more content not included)... Normal [facility] CNPNon 12-12-2022 CNPN Telephone ([facility]) MARGIE HAYNES ([id number]) 1975 M Date Time Provider Department 12/12/22 [facility] During your visit today, we recorded the following information about you: Mirna Woodson Ma 12/12/2022 4:21 PM Signed Received patient's Office Visit re: diabetes (dos: 12/11/22) from [facility] placed in provider's in box to be for reviewed AND signed with providers approval to be sent to scanning. Mirna Brooks) Hiram Sykes MD 12/13/2022 7:52 AM Signed Endocrinology consult Diabetes: Continue metformin 500 mg twice daily Start Ozempic Continue glimepiride 4 mg twice a day Start Basaglar 15 units once daily Follow-up in 8 weeks Hemoglobin A1c 9.5% Allergies As of Date: 12/12/2022 Noted Allergy Reaction AMOXICILLIN 03/21/2015 16 - Unknown Comments: Rash at 3 years of age. Has tolerated augmentin in the past. METFORMIN 06/22/2019 8 - GI Upset Date Reviewed: 07/15/2022 Reviewed by: Hillary Cui - Fully Assessed Reason for Visit: Received Outside Medical Records [[id number]] Cmt: [facility] endocrinology consult (12/11/22) Order(s):HGBA1C (EXTERNAL [facility]) [[id number]] Order #: [id number] Prescriptions as of 12/13/2022 - OZEMPIC 0.25 mg or 0.5 mg (2 mg/3 mL) pen 0.5 mg once weekly - LEVEMIR FLEXPEN 100 unit/mL (3 mL) injection pen 15 units once daily at nighttime - metFORMIN ER (GLUCOPHAGE XR) 500 mg 24 hr tablet Take 1 tablet by mouth twice daily with meals. May gradually increase up to 4 tablets daily as tolerated. - diphenoxylate-atropine (LOMOTIL) 2.5-0.025 mg per tablet Take 1 tablet by mouth four times daily as needed for diarrhea for up to 30 days. - [employer] ULTRA TEST test strip USE TO CHECK BLOOD SUGARS TWICE DAILY OR DIRECTED. - lancets (ONE TOUCH DELInnoVital Systems) 33 gauge USE TO CHECK BLOOD SUGARS TWICE DAILY OR DIRECTED. - glimepiride (AMARYL) 4 mg tablet Take 1 tablet by mouth twice daily with meals. - atorvastatin (LIPITOR) 20 mg tablet Take 1 tablet by mouth once daily. - lisinopril (ZESTRIL, PRINIVIL) 10 mg tablet Take 1 tablet by mouth once daily. - Blood-Glucose Meter ([employer] ULTRAMINI) monitoring kit Use to check blood sugars twice daily or as directed. - CPAP BiPAP supplies including large mask, tubing and headgear for BiPAP Auto Remstar F10 machine - aspirin, enteric coated (ECOTRIN LOW STRENGTH) 81 mg EC tablet Take 1 tablet by mouth once daily. - cetirizine (ZYRTEC) 10 mg tablet Take 1 tablet by mouth once daily. Problem List As Of Date 12/12/2022 Noted Resolved History of pacemaker [Z95.0] RENETTA on CPAP [G47.33] Fatty infiltration of liver [K76.0] 11/29/2015 Uncontrolled type 2 diabetes mellitus with hype*12/08/2015 Left kidney mass [N28.89] 01/22/2016 H/O atrial fibrillation without current medicat* Screening for genitourinary condition [Z13.89] 12/25/2015 02/13/2016 Microscopic hematuria [R31.29] 12/25/2015 Neoplasm of uncertain behavior of left kidney [*12/25/2015 01/22/2016 Malignant neoplasm of left kidney, except renal*01/22/2016 S/p nephrectomy [Z90.5] 03/16/2016 Obesity, Class III, BMI 40-49.9 (morbid obesity*08/12/2017 Coronary artery disease involving lytton szymanski*01/07/2018 Low testosterone in male [R79.89] 11/24/2018 Medications Discontinued During This Encounter Prescriptions - dulaglutide (TRULICITY) 1.5 mg/0.5 mL pen injector (Discontinued) Inject 1.5 mg subcutaneously one time a week. Encounter Status:Closed by HIRAM SYKES on 12/13/22 Normal [facility] HGBA1C (EXTERNAL [facility])on HbA1c (Bld) [Mass fraction] 9.5 % Abnormal 4.4 - 6.3 [facility] CNPNon 09-26-2022 CNPN Telephone ([facility]) MARGIE HAYNES ([id number]) 1975 M Date Time Provider Department 09/26/22 HIRAM SYKES During your visit today, we recorded the following information about you: Majo Perry 09/26/2022 5:03 PM Signed Patient's called regarding the referral to see Endo-Dr. Watkins. She did not realize it was from May. Stated they never received the faxed referral. Refaxed the referral to Dr. Watkins's office to given fax number of [phone]. Mirna Woodson Ma 09/27/2022 9:24 AM Signed Received Requested Referral Form from [place] for provider to review and sign. Forms placed in providers box. Once completed please send to : (f): Please route to SOWMYA for completion. The Below is being requested: Demographic/Facesheet Health History Office Notes Current med list Recent Lab results Pertinent Imaging to Diagnosis Hiram Sykes MD 09/27/2022 1:59 PM Signed Recent office notes were printed off and included with form Please fax back Mirna Woodson Ma 09/27/2022 3:29 PM Signed Completed Request were sent with confirmation. (f) [phone] Forms placed in Mn's file. Allergies As of Date: 09/26/2022 Noted Allergy Reaction AMOXICILLIN 03/21/2015 16 - Unknown Comments: Rash at 3 years of age. Has tolerated augmentin in the past. METFORMIN 06/22/2019 8 - GI Upset Date Reviewed: 07/15/2022 Reviewed by: Hillary Ciu - Fully Assessed Reason for Visit: Orders [[id number]] Cmt: Re: Endocrinology Prescriptions as of 09/27/2022 - metFORMIN ER (GLUCOPHAGE XR) 500 mg 24 hr tablet Take 1 tablet by mouth twice daily with meals. May gradually increase up to 4 tablets daily as tolerated. - diphenoxylate-atropine (LOMOTIL) 2.5-0.025 mg per tablet Take 1 tablet by mouth four times daily as needed for diarrhea for up to 30 days. - PixstaTOUCH ULTRA TEST test strip USE TO CHECK BLOOD SUGARS TWICE DAILY OR DIRECTED. - lancets (ONE TOUCH DELICA) 33 gauge USE TO CHECK BLOOD SUGARS TWICE DAILY OR DIRECTED. - glimepiride (AMARYL) 4 mg tablet Take 1 tablet by mouth twice daily with meals. - atorvastatin (LIPITOR) 20 mg tablet Take 1 tablet by mouth once daily. - lisinopril (ZESTRIL, PRINIVIL) 10 mg tablet Take 1 tablet by mouth once daily. - Blood-Glucose Meter (WatchwithUCH ULTRAMINI) monitoring kit Use to check blood sugars twice daily or as directed. - CPAP BiPAP supplies including large mask, tubing and headgear for BiPAP Auto Remstar F10 machine - aspirin, enteric coated (ECOTRIN LOW STRENGTH) 81 mg EC tablet Take 1 tablet by mouth once daily. - cetirizine (ZYRTEC) 10 mg tablet Take 1 tablet by mouth once daily. Problem List As Of Date 09/26/2022 Noted Resolved History of pacemaker [Z95.0] RENETTA on CPAP [G47.33, Z99.89] Fatty infiltration of liver [K76.0] 11/29/2015 Uncontrolled type 2 diabetes mellitus with hype*12/08/2015 Left kidney mass [N28.89] 01/22/2016 H/O atrial fibrillation without current medicat* Screening for genitourinary condition [Z13.89] 12/25/2015 02/13/2016 Microscopic hematuria [R31.29] 12/25/2015 Neoplasm of uncertain behavior of left kidney [*12/25/2015 01/22/2016 Malignant neoplasm of left kidney, except renal*01/22/2016 S/p nephrectomy [Z90.5] 03/16/2016 Obesity, Class III, BMI 40-49.9 (morbid obesity*08/12/2017 Coronary artery disease involving lytton szymanski*01/07/2018 Low testosterone in male [R79.89] 11/24/2018 Encounter Status:Closed by MAJO PERRY on 09/26/22 [facility] CNPSarina 09-11-2022 CNPN Telephone ([facility]) MARGIE HAYNES ([id number]) 1975 M Date Time Provider Department 09/11/[address] [facility] During your visit today, we recorded the following information about you: Enmanuel Masters, [facility] 09/11/2022 11:32 AM Signed called PharmD and LMOM regarding patient experiencing more GI issues with the increased Trulicity dose. States it messed up his gut and he is in the bathroom all the time. Is requesting a return call. Spoke with . Patient says he is done with taking the increased Trulicity dose. Patient feels tired because not sleeping well since sick. If eating something he throws up within in an hour (thought his is improved from earlier this week). Feels stomach is twisted. Sx are similar to after last week's dose though lasting longer. Sx started on Friday during uatsdin and have continued through today, denies there being much improvement. States patient tried eating chicken, green beans, and potato last night and ended up vomiting after eating. Trying to eat some yogurt for probiotics. mentioned she spoke with nurse triage already this AM. PharmD advised to follow BRAT diet while not feeling well and avoid dairy, citrus, sugary things which can exacerbate GI issues. Urged the need to hydrate - suggested small/frequent sips of Pedialyte or Gatorade Zero mixed 1:1 with water. Informed that PCP sent in script of Lomotil to pharmacy. Advised to reach out to office if sx don't improve. Will NOT continue with the higher Trulicity dose given ADRs. Informed to have patient SKIP next Trulicity dose and will f/up for scheduled appt next week on 09/18. Enmanuel Masters PharmD, [facility] Primary Care Clinical Pharmacist Enmanuel Masters [facility] 09/12/2022 11:48 AM Signed Called patient's to check on patient status. She states he seems to be doing better. Was able to eat some broth and rice yesterday which he tolerated. Lomotil seems to be helping. He was able to sleep better though still tired today. PharmD encouraged rest and continuing to be mindful of diet since belly is healing. F/up scheduled for next week. Enmanuel Masters PharmD, [facility] Primary Care Clinical Pharmacist Allergies As of Date: 09/11/2022 Noted Allergy Reaction AMOXICILLIN 03/21/2015 16 - Unknown Comments: Rash at 3 years of age. Has tolerated augmentin in the past. METFORMIN 06/22/2019 8 - GI Upset Date Reviewed: 07/15/2022 Reviewed by: Hillary Cui - Fully Assessed Reason for Visit: Medication Question [7481] Cmt: Trulicity ADRs Prescriptions as of 09/12/2022 - diphenoxylate-atropine (LOMOTIL) 2.5-0.025 mg per tablet Take 1 tablet by mouth four times daily as needed for diarrhea for up to 30 days. - PixstaTOUCH ULTRA TEST test strip USE TO CHECK BLOOD SUGARS TWICE DAILY OR DIRECTED. - dulaglutide (TRULICITY) 3 mg/0.5 mL pen injector Inject 3 mg subcutaneously one time a week. - metFORMIN ER (GLUCOPHAGE XR) 500 mg 24 hr tablet Take 1 tablet by mouth once daily. - lancets (ONE TOUCH DELICA) 33 gauge USE TO CHECK BLOOD SUGARS TWICE DAILY OR DIRECTED. - glimepiride (AMARYL) 4 mg tablet Take 1 tablet by mouth twice daily with meals. - atorvastatin (LIPITOR) 20 mg tablet Take 1 tablet by mouth once daily. - lisinopril (ZESTRIL, PRINIVIL) 10 mg tablet Take 1 tablet by mouth once daily. - Blood-Glucose Meter (ONETOUCH ULTRAMINI) monitoring kit Use to check blood sugars twice daily or as directed. - CPAP BiPAP supplies including large mask, tubing and headgear for BiPAP Auto Remstar F10 machine - aspirin, enteric coated (ECOTRIN LOW STRENGTH) 81 mg EC tablet Take 1 tablet by mouth once daily. - cetirizine (ZYRTEC) 10 mg tablet Take 1 tablet by mouth once daily. Problem List As Of Date 09/11/2022 Noted Resolved History of pacemaker [Z95.0] RENETTA on CPAP [G47.33, Z99.89] Fatty infiltration of liver [K76.0] 11/29/2015 Uncontrolled type 2 diabetes mellitus with hype*12/08/2015 Left kidney mass [N28.89] 01/22/2016 H/O atrial fibrillation without current medicat* Screening for genitourinary condition [Z13.89] 12/25/2015 02/13/2016 Microscopic hematuria [R31.29] 12/25/2015 Neoplasm of uncertain behavior of left kidney [*12/25/2015 01/22/2016 Malignant neoplasm of left kidney, except renal*01/22/2016 S/p nephrectomy [Z90.5] 03/16/2016 Obesity, Class III, BMI 40-49.9 (morbid obesity*08/12/2017 Coronary artery disease involving lytton szymanski*01/07/2018 Low testosterone in male [R79.89] 11/24/2018 Encounter Status:Closed by ENMANUEL MASTERS on 09/11/22 [facility] Telephone ([facility]) MARGIE HAYNES ([id number]) 1975 M Date Time Provider Department 09/04/[address] [facility] During your visit today, we recorded the following information about you: Enmanuel Masters [facility] 09/04/2022 1:11 PM Signed Patient's , Keshia, called PharmD and LMOM stating she thinks patient may be having an adverse reaction to the dose increase of Trulicity, is requesting a return call at [phone]. PharmD returned call to Keshia. States this past patient started the Trulicity 3mg dose. Not feeling great over the weekend. Said he had a low BG attack of 111 while working in the yard - treated and BG corrected. Said he didn't feel right afterwards, slept the rest of the day. Did have some increased burping and stomach upset. Yesterday did have some diarrhea, vomited. Denies sharp stabbing abdominal pain, did have feeling of bloating. He barely ate yesterday. Today feeling fine but sluggish, no diarrhea or vomiting. Niece is getting next weekend, September 14, doesn't want him being sick for the wedding. wondering if this is all caused by Trulicity and what to do. PharmD discussed with that GI sx are common with Trulicity dose adjustments. Advised he continue taking the higher dose this week. Encouraged to avoid fried, greasy, fatty foods or over-eating. Discussed his low BG was not truly low but he body was not used to it. Advised to correct feelings of lows with the Rule of 15 though he should start to tolerate the lower readings better as his body adjusts to lower readings. Did advised patient to reduce glimepiride by 1 tab if feelings of lows persist. Advised that if he still have GI issues after the 2nd dose this week, then he should wait to administer next week's dose until Friday evening after his niece's wedding to avoid possibly missing the event due to ADEs. Discussed the uncommon but potential issues with gall bladder problems and/or pancreatitis with Trulicity. Advised to contact PCP office if notices sharp, stabbing abdominal pain (particularly in the epigastric region), etc. appreciated the call. Enmanuel Masters, Clarice, [facility] Primary Care Clinical Pharmacist Allergies As of Date: 09/04/2022 Noted Allergy Reaction AMOXICILLIN 03/21/2015 16 - Unknown Comments: Rash at 3 years of age. Has tolerated augmentin in the past. METFORMIN 06/22/2019 8 - GI Upset Date Reviewed: 07/15/2022 Reviewed by: Hillary Cui - Fully Assessed Reason for Visit: Patient Question [6576] Cmt: Manjit NYDIA Prescriptions as of 09/04/2022 - WatchwithUCH ULTRA TEST test strip USE TO CHECK BLOOD SUGARS TWICE DAILY OR DIRECTED. - dulaglutide (TRULICITY) 3 mg/0.5 mL pen injector Inject 3 mg subcutaneously one time a week. - metFORMIN ER (GLUCOPHAGE XR) 500 mg 24 hr tablet Take 1 tablet by mouth once daily. - lancets (ONE TOUCH DELInnoVital Systems) 33 gauge USE TO CHECK BLOOD SUGARS TWICE DAILY OR DIRECTED. - glimepiride (AMARYL) 4 mg tablet Take 1 tablet by mouth twice daily with meals. - atorvastatin (LIPITOR) 20 mg tablet Take 1 tablet by mouth once daily. - lisinopril (ZESTRIL, PRINIVIL) 10 mg tablet Take 1 tablet by mouth once daily. - Blood-Glucose Meter (WatchwithUCH ULTRAMINI) monitoring kit Use to check blood sugars twice daily or as directed. - CPAP BiPAP supplies including large mask, tubing and headgear for BiPAP Auto Remstar F10 machine - aspirin, enteric coated (ECOTRIN LOW STRENGTH) 81 mg EC tablet Take 1 tablet by mouth once daily. - cetirizine (ZYRTEC) 10 mg tablet Take 1 tablet by mouth once daily. Problem List As Of Date 09/04/2022 Noted Resolved History of pacemaker [Z95.0] RENETTA on CPAP [G47.33, Z99.89] Fatty infiltration of liver [K76.0] 11/29/2015 Uncontrolled type 2 diabetes mellitus with hype*12/08/2015 Left kidney mass [N28.89] 01/22/2016 H/O atrial fibrillation without current medicat* Screening for genitourinary condition [Z13.89] 12/25/2015 02/13/2016 Microscopic hematuria [R31.29] 12/25/2015 Neoplasm of uncertain behavior of left kidney [*12/25/2015 01/22/2016 Malignant neoplasm of left kidney, except renal*01/22/2016 S/p nephrectomy [Z90.5] 03/16/2016 Obesity, Class III, BMI 40-49.9 (morbid obesity*08/12/2017 Coronary artery disease involving lytton szymanski*01/07/2018 Low testosterone in male [R79.89] 11/24/2018 Encounter Status:Closed by ENMANUEL MASTERS on 09/04/22 Normal [facility] No Panel Informationon 07-15 BLANK _ [facility] Implant Date 02/06/2009 [facility] Model 4076 CapsureFix Novus Darren [facility] CHECKon AV Delay Adaptive Paced Minimum (ms) 180 ms [facility] AV Delay Adaptive Sensed Minimum (ms) 150 ms [facility] AV Delay Adaptive Status DISABLED [facility] Battery Impedance (ohms) 4362 ohm [facility] Battery Voltage (volts) 2.69 V [facility] Braxton RA Pacing Amplitude (volts) 1.5 V [facility] Braxton RA Pacing Polarity BI [facility] Braxton RA Pacing Pulse Width (ms) 0.4 ms [facility] Braxton RA Sensing Amplitude (mvolts) 0.7 mV [facility] Braxton RA Sensing Blanking Period (ms) 180 ms [facility] Braxton RA Sensing Polarity BI [facility] Braxton RA Sensing Refractory Period (ms) 250 ms [facility] Braxton RV Pacing Amplitude (volts) 2 V [facility] Braxton RV Pacing Polarity BI [facility] Braxton RV Pacing Pulse Width (ms) 0.4 ms [facility] Braxton RV Sensing Amplitude (mvolts) 5.6 mV [facility] Braxton RV Sensing Blanking Period (ms) 28 ms [facility] Braxton RV Sensing Polarity BI [facility] Braxton RV Sensing Refractory Period (ms) 230 ms [facility] Lead1 Mfg MDT [facility] Lead2 Mfg MDT [facility] Location RA [facility] Location RV [facility] Lower Rate (bpm) 40 {beats}/min [facility] Model ADDR01 Adapta [facility] Pacemaker Dependent? NO [facility] PM-Device Stephanieg T [facility] PM-PMT Intervention ENABLED [facility] PM-PVC Intervention ENABLED [facility] PM-Rate Modulation Acceleration Reaction 30 s [facility] PM-Rate Modulation ADL Rate (bpm) 105 {beats}/min [facility] PM-Rate Modulation Deceleration Exercise [facility] PM-Rate Modulation [place] 3 [facility] PM-Rate Modulation Threshold Medium/Low [facility] Rhythm SR [facility] Serial Number [id number] [facility] Thresh RA Capture Amplitude (volts) 0.5 V [facility] Thresh RA Capture Duration (ms) 0.4 ms [facility] Thresh RA Sensing Amplitude (mvolts) 4 mV [facility] Thresh RV Capture Amplitude (volts) 0.75 V [facility] Thresh RV Capture Duration (ms) 0.4 ms [facility] Thresh RV Sensing Amplitude (mvolts) 15.67 mV [facility] Tracking Rate (bpm) 130 {beats}/min [facility] ED NOTEon 04-02-2018 ED NOTE HNO ID: [id number] thor: Hanny (Rn) MARIEL Echeverriaervice: NursingAuthor Type: Registered NurseType: ED NotesFiled: 04/02/2018 9:19 AMNote Text: Discharge instructions d/w pt and spouse at bedside. Stated understandingwith no further questions for this nurse. Encouraged f/u with PCP andreferring doctors given. Stated understanding.Prescription( S) were given X2 (e-scribed to [facility] in [facility] ). [facility] ED NOTE HNO ID: [id number] Author: Hanny (Rn) TOLU Echeverria Service: Nursing Author Type: Registered Nurse Type: ED Notes Filed: 04/02/2018 8:38 AM Note Text: [employer] at bedside with aerosol treatment. [facility] ED NOTE HNO ID: [id number] Author: Hanny (Rn) TOLU Echeverria Service: Nursing Author Type: Registered Nurse Type: ED Notes Filed: 04/02/2018 8:14 AM Note Text: Dr LINDA Cui rounds on pt at bedside to assess. [facility] ED NOTE HNO ID: [id number] thor: Hanny (Rn) MARIEL Echeverriaervice: NursingAuthor Type: Registered NurseType: ED NotesFiled: 04/02/2018 8:10 AMNote Text: Pt presents to ED with spouse for nasal congestion and a cough. Pt statesthat his sputum has been clear with some yellow coloring as well.Started yesterday.Plan of care-Monitor Patient's Vital Signs for changes in condition-Monitor patient for changes in pain-Maintain patient safety and privacy-Provide comfort measures-Call light in placeSiderails up, bed in locked and low position [facility] ED PROV NOTEon 04-02-2018 Protein mass conc HNO ID: [id number] thor: Elliott Cui, MDService: (none)Author Type: PhysicianType: ED Provider NotesFiled: 04/02/2018 9:09 AMNote Text:ED Provider NotePatient Name: Margie HaynesMRN: [id number] DATE: 04/02/18HistoryPatient presents with:CongestedCoughMrEnrique Haynes is a pleasant 43-year-old male with a history of coronaryartery disease and diabetes and pacer for atrial fibrillation as well asmultiple MIs and kidney cancer now presenting with cough and congestionand sinus discomfort for about a week as well as some chest pain whencoughing which is sharp/burning in the middle of his chest startingyesterday, as well as fevers and chills and more significant troublebreathing and wheezing starting yesterday. He hasn't wheezed previously,though may be with one episode of pneumonia previously. He was never asmoker or had asthma. He denies hemoptysis. He has no pain when he isnot coughing. He has a little bit of difficulty getting a deep breath,and had trouble sleeping last night. After breathing treatment here, hehas nearly no symptoms.PAST MEDICAL HISTORYDiagnosis Date- Atrial fibrillation (HCC)- Controlled type 2 diabetes mellitus without complication, withoutlong-term current use of insulin (HCC) 12/08/2015- Coronary artery disease 2013 hx HI 2013- History of pacemaker 2008 a fib- Left kidney mass- HI (myocardial infarction) (HCC) 2013- Nephrolithiasis 1996 passed spontaneously- RENETTA on CPAP- Renal cancer (HCC) 11/20/15 left, pending surgeryPAST SURGICAL HISTORYProcedure Laterality Date- APPENDECTOMY 02/2018- CARDIAC PACEMAKER PLACEMENT HX 2008- HEART CATHETERIZATION 2014 HI, neg- PAST SURGICAL HISTORY OF 12/2015 ROBOTIC LAPAROSCOPIC NEPHRECTOMY RADICAL (Left)- REMOVAL ADENOIDS,SECOND,12+ Y/O age 3FAMILY HISTORYProblem Relation Age of Onset- other (Cancer, cervical/ intestinal[other]) Mother- other (Cancer, pancreatic[other]) Maternal Grandmother 73 yrs- other (Cancer, leukemia[other]) Paternal Grandmother 70 yrs- Diabetes Maternal Uncle- other (TIA[other]) Brother due to chemicals on job- COPD Father 86 yrs- Cataract FatherSocial HistorySocial History Main Topics- Smoking status: Never Smoker- Smokeless tobacco: Never Used- Alcohol use Yes Comment: minimal ( 6 pack will last for 1 year)- Drug use: No- Sexual activity: Yes Partners: FemaleALLERGIESAllergen Reactions- Amoxicillin Unknown Rash at 3 years of age. Has tolerated augmentin in the past.Review of SystemsConstitutional: Negative for chills and fever.HENT: Positive for congestion and rhinorrhea. Negative for ear pain andsore throat.Respiratory: Positive for cough, shortness of breath and wheezing.Cardiovascular: Positive for chest pain. Negative for leg swelling.Gastrointestinal: Negative for abdominal pain, diarrhea, nausea andvomiting.Genitourinary: Negative for dysuria, flank pain, frequency and hematuria.Musculoskeletal: Negative for back pain.Skin: Negative for rash.Neurological: Negative for speech difficulty, weakness, light-headedness,numbness and headaches.Psychiatric/Behav ioral: Negative for hallucinations and suicidal ideas.Physical ExamBP 170/95 Pulse 79 Temp (Src) 98.5 (Oral) Resp 22 Ht 5' 8 (1.73m) Wt 272 lb (123.4kg) SpO2 97% BMI 41.37 kg/(m2).Physical ExamConstitutional: He is oriented to person, place, and time. He appearswell-developed and well-nourished. No distress.HENT:Head: Normocephalic and atraumatic.Mouth/Throat: No oropharyngeal exudate.Eyes: Pupils are equal, round, and reactive to light.Neck: Normal range of motion. Neck supple. No tracheal deviation present.Cardiovascular: Normal rate and intact distal pulses. Exam reveals nogallop and no friction rub.No murmur heard.Pulmonary/Chest: Effort normal. No respiratory distress.No wheeze but initially diminished, ? Faint rales R baseAbdominal: Soft. Bowel sounds are normal. He exhibits no distension. Thereis no tenderness. There is no rebound and no guarding.Musculoskeletal: Normal range of motion. He exhibits no edema.Neurological: He is alert and oriented to person, place, and time. Nocranial nerve deficit. He exhibits normal muscle tone.Skin: Skin is warm and dry. No erythema.Psychiatric: He has a normal mood and affect. His behavior is normal.Judgment and thought content normal.Nursing note and vitals reviewed.Diagnostic TestingED Labs Ordered and Reviewed - No data to displayProceduresED Course / Clinical ImpressionED Course as of Apr 02 904Elliott Cui's DocumentationThu Apr 02 ECG NSR @ 72 bpm no STEMI old NSST changes (T waves abnl inI/aVL/V4/V5/V6, very similar to 03/18/13 ECG)Clinical Impressions as of Apr 02 904CoughSinus congestionDyspnea, unspecified typeWheezingMDM / Disposition / PlanCourse:Vital signs were reviewed.Triage records were reviewed.Medical records were reviewed.Nursing notes were reviewed and incorporated.The following medications were administered: Duoneb, DoxycyclineECG reviewed and interpreted as aboveRadiographs were reviewed as below.Medical Decision Making:Differential diagnosis: Upper respiratory infection, less likely influenzawithout significant fever and a week out, Tamiflu unlikely to help,pneumonia, checking chest x-ray, pneumothorax, reactive airway disease,empyema, checking chest x-ray, HI much less likely, checking ECG, he notesthis chest pain is nothing at all similar to when he had 2 previous MIs,which were more profound typical angina, so we discussed doing highsensitivity troponin to rule out HI, but he prefers to hold off, which isreasonable.Assessment and plan: Mr. Haynes is a pleasant 43-year-old malepresenting today with upper respiratory infection and some wheezing. Hischest x-ray does not show pneumonia, but given how productive his coughhas become and his subjective fevers and chills weekend, we will put himon doxycycline. He feels much better after breathing treatment here, sowe will give him an albuterol prescription as well. We will hold off onprednisone, as he has no increase in his work of breathing and is feelingsignificantly better after one breathing treatment. We held off on bloodwork after discussion with him of the risk of missing HI, though he isvery confident we are not, as his symptoms are nothing like when he hadMI, and he actually feels much better with the breathing treatment. Hehas no ongoing chest discomfort. He obviously understands thesignificance of a missed heart attack. He will return should he worsen.Clinically, his symptoms are not consistent with PE or dissection.The attending who evaluated and managed this patient was Cheryl Cui. .Plan:The patient was discharged home with verbal and written instructions.They were instructed to return as needed for persistent or worseningsymptoms or any new concerns.Consent: A procedure or transfusion was performed - ANDREA SolIGNATURE: Jose Hollins MD04/02/18 0909 [facility] EKGon 04-02-2018 Protein mass conc NAME : PRISCILA HAYNES HAKENNETHPID : [id number] : [id number] Gender : MaleRace : CaucasianORD : [id number] Procedure Date : Apr 02 2018 08:53:17Edit Date : Apr 02 2018 14:51:18 Diagnosis:NORMAL SINUS RHYTHMNONSPECIFIC T WAVE ABNORMALITY (old unchanged from 03/18/13)ABNORMAL ECGno STEMIConfirmed by MD BASILIA, ELLIOTT.S ([id number]), sports editor RED JOHNSON ([id number]) on 04/02/2018 2:51:12 PM Ventricular Rate : 72 BPMAtrial Rate : 72 BPMP-R Interval : 154 msQRS Duration : 76 msQ-T Interval : 370 msQTC Calculation(Bezet) : 405 msP [place] : 44 degreesR [place] : 37 degreesT [place] : 85 degrees Test Reason : Chest Pain Location : 1 : ER 11 Overread By : MD BASILIA,ELLIOTT.SEdited By : RED JOHNSONReferred By : ,Acquired by : Amadou DUNN [facility] XR CHEST 2V FRONTAL/LATon XR CHEST 2V FRONTAL/LAT * * *Final Report* * *DATE OF EXAM: Apr 02 2018 8:44AM MDX [id number] - XR CHEST 2V FRONTAL/LAT / REASON: Cough, new onset * * * * Physician Interpretation * * * * EXAMINATION: CHEST RADIOGRAPH (2 VIEW FRONTAL and LATERAL)CLINICAL HISTORY: Cough, new onset, Shortness of breath, Wheezing,MQ: [id number].RESULT:Lines, tubes, and devices: Pacemaker module projected over left chest partially obscures lung in this area with leads overlying right atrium and right ventricle. .Lungs and pleura:Trachea is in the midline. Visualized lungs show no focal consolidation, pneumothorax, pulmonary congestion or pleural effusion.Cardiomediastinal silhouette: Normal cardiomediastinal silhouette.Other: Bony thorax is unremarkable..IMPRESSION:No acute radiographic abnormality.Transcriptionis t: PSCB Transcribe Date/Time: Apr 02 2018 8:46ADictated by : ERIN YUAN MDThis examination was interpreted and the report reviewed and electronically signed by: ERIN YUAN MD on Apr 02 2018 8:48AM [id number] [facility] Vital Signs Date Time Vital Sign Value Performing Clinician Facility 11-04-2024 08:36-0400 Body height 172.[address] Bambi Cisneros MD Work Phone: [facility] 11-04-2024 08:36-0400 Body mass index (BMI) [Ratio] 41.2 kg/m2 Dr. Bambi Cisneros MD Work Phone: [facility] 11-04-2024 08:36-0400 Body weight 123.[address] Bambi Cisneros MD Work Phone: [facility] 11-04-2024 08:36-0400 Diastolic blood pressure 87 mm[Hg] Dr. Bambi Cisneros MD Work Phone: [facility] 11-04-2024 08:36-0400 Heart rate 85 /min Dr. Bambi Cisneros MD Work Phone: [facility] 11-04-2024 08:36-0400 SaO2% (BldA) [Mass fraction] 96 % Dr. Bambi Cisneros MD Work Phone: [facility] 11-04-2024 08:36-0400 Systolic blood pressure 135 mm[Hg] Dr. Bambi Cisneros MD Work Phone: [facility] 07-29-2024 08:18-0400 Body mass index (BMI) [Ratio] 43.1 kg/m2 Dr. Bambi Cisneros MD Work Phone: [facility] 07-29-2024 08:18-0400 Body weight 128.[address] Bambi Cisneros MD Work Phone: [facility] 07-29-2024 08:18-0400 Diastolic blood pressure 99 mm[Hg] Dr. Bambi Cisneros MD Work Phone: [facility] 07-29-2024 08:18-0400 Heart rate 81 /min Dr. Bambi Cisneros MD Work Phone: [facility] 07-29-2024 08:18-0400 SaO2% (BldA) [Mass fraction] 96 % Dr. Bambi Cisneros MD Work Phone: [facility] 07-29-2024 08:18-0400 Systolic blood pressure 148 mm[Hg] Dr. Bambi Cisneros MD Work Phone: [facility] 06-14-2024 11:17-0500 Diastolic blood pressure 81 mm[Hg] [place] [facility] 06-14-2024 11:17-0500 Heart rate 63 /min [place] [facility] 06-14-2024 11:17-0500 Respiratory rate 14 /min [place] [facility] 06-14-2024 11:17-0500 SaO2% (BldA) [Mass fraction] 99 % [place] [facility] 06-14-2024 11:17-0500 Systolic blood pressure 164 mm[Hg] [place] [facility] 05-14-2024 08:20-0500 Body height 172.7 cm Cinda Brennan MD Work Phone: [facility] 05-14-2024 08:20-0500 Body mass index (BMI) [Ratio] 42.57 kg/m2 Cinda Brennan MD Work Phone: [facility] 05-14-2024 08:20-0500 Body temperature 97.81 [degF] Cinda Brennan MD Work Phone: [facility] 05-14-2024 08:20-0500 Body weight 127.01 kg Cinda Brennan MD Work Phone: [facility] [place] 05-14-2024 08:20-0500 Diastolic blood pressure 88 mm[Hg] Cinda Brennan MD Work Phone: [facility] [place] 05-14-2024 08:20-0500 Heart rate 89 /min [facility] 05-14-2024 08:20-0500 Respiratory rate 19 /min Cinda Brennan MD [facility] 05-14-2024 08:20-0500 SaO2% (BldA) [Mass fraction] 97 % Cinda Brennan MD [facility] 05-14-2024 08:20-0500 Systolic blood pressure 158 mm[Hg] Cinda Brennan MD [facility] 04-21-2023 14:34-0500 Body height 172.7 cm Brian Hawley MD Work Phone: [facility] 04-21-2023 14:34-0500 Body weight 113.4 kg Brian Hawley MD Work Phone: [facility] 04-21-2023 14:34-0500 Diastolic blood pressure 76 mm[Hg] Brian Hawley MD Work Phone: [facility] 04-21-2023 14:34-0500 Heart rate 82 /min Brian Hawley MD Work Phone: [facility] 04-21-2023 14:34-0500 Systolic blood pressure 113 mm[Hg] Brian Hawley MD Work Phone: [facility] 12-30-2022 15:14-0400 Body height 172.7 cm Margie Smith DO Work Phone: [facility] 12-30-2022 15:14-0400 Body weight 117.48 kg Margie Smith DO Work Phone: [facility] 12-30-2022 15:14-0400 Diastolic blood pressure 72 mm[Hg] Margie Susanna DO Work Phone: [facility] 12-30-2022 15:14-0400 Heart rate 87 /min Margie Coronelalfitmehran DO Work Phone: [facility] 12-30-2022 15:14-0400 SaO2% (BldA) [Mass fraction] 98 % Margie Charanfitmehran DO Work Phone: [facility] 12-30-2022 15:14-0400 Systolic blood pressure 108 mm[Hg] Margie Smith DO Work Phone: [facility] 07-15-2022 14:54-0500 Body height 172.7 cm Brian Hawley MD Work Phone: [facility] 07-15-2022 14:54-0500 Body weight 120.66 kg Brian Hawley MD Work Phone: [facility] 07-15-2022 14:54-0500 Diastolic blood pressure 78 mm[Hg] Brian Hawley MD Work Phone: [facility] 07-15-2022 14:54-0500 Heart rate 80 /min Brian Hawley MD Work Phone: [facility] 07-15-2022 14:54-0500 SaO2% (BldA) [Mass fraction] 98 % Brian Hawley MD Work Phone: [facility] 07-15-2022 14:54-0500 Systolic blood pressure 110 mm[Hg] Brian Hawley MD Work Phone: [facility] 06-07-2022 14:23-0500 Body height 172.7 cm Margie Smith DO Work Phone: [facility] 06-07-2022 14:23-0500 Body weight 122.43 kg Margie Smith DO Work Phone: [facility] 06-07-2022 14:23-0500 Diastolic blood pressure 72 mm[Hg] Margie Smith DO Work Phone: [facility] 06-07-2022 14:23-0500 Heart rate 76 /min Margie Smith DO Work Phone: [facility] 06-07-2022 14:23-0500 SaO2% (BldA) [Mass fraction] 98 % Margie Smith DO Work Phone: [facility] 06-07-2022 14:23-0500 Systolic blood pressure 112 mm[Hg] Margie Smith DO Work Phone: [facility] 03-05-2022 19:03-0400 Body temperature 98.49 [degF] Hiram Sykes MD Work Phone: [facility] 03-05-2022 19:03-0400 Body weight 118.39 kg Hiram Sykes MD Work Phone: [facility] 03-05-2022 19:03-0400 Diastolic blood pressure 76 mm[Hg] Hiram Sykes MD Work Phone: [facility] 03-05-2022 19:03-0400 Heart rate 83 /min Hiram Sykes MD Work Phone: [facility] 03-05-2022 19:03-0400 SaO2% (BldA) [Mass fraction] 98 % Hiram Sykes MD Work Phone: [facility] 03-05-2022 19:03-0400 Systolic blood pressure 118 mm[Hg] Hiram Sykes MD Work Phone: [facility] Encounters Encounter Date Encounter Type Care Provider Facility Start: 11-04-2024 End: 11-04-2024 Patient encounter procedure Jannet BLOUNT -[facility] Work Phone: Start: 11-04-2024 End: 11-04-[address] Bambi Cisneros MD Work Phone: [facility] Work Phone: Start: 07-29-2024 End: 07-29-2024 Patient encounter procedure Jannet Flannery [facility] -[facility] Work Phone: Start: 07-29-2024 End: 07-29-2024 ambulatory Bambi Amelia Facility:[facility] Start: 06-14-2024 End: 06-16-2024 ambulatory [facility] Start: 06-14-2024 End: 06-16-2024 Subsequent hospital visit by physician Michael Waterman MD Work Phone: [facility] Procedure Comment on above: Traumatic tear of le ft rotator cuff, unspecified tear extent, initial encounter Arrived Start: 06-08-2024 End: 06-10-2024 ambulatory [facility] Start: 06-01-2024 End: 06-01-2024 Subsequent hospital visit by physician Jaqueline [facility] Start: 06-01-2024 ambulatory [facility] Start: 05-14-2024 End: 05-14-2024 Emergency department patient visit Cinda Brennan MD Work Phone: [facility] ED Comment on above: Fall, initial encoun ter (Primary Dx); Shoulder injury, left, initial encounter Start: 04-26-2024 End: 04-26-2024 ambulatory Bambi [place] Facility:[facility] Start: 03-26-2024 End: 03-26-2024 Refill Celsa Carter APRN.CNP Work Phone: [facility] Comment on above: Refill Request Start: 01-15-2024 End: 01-15-2024 ambulatory Bambi [place] Facility:[facility] Start: 12-19-2023 Refill Hiram quigley MD Work Phone: [facility] Comment on above: Refill Request Start: 11-06-2023 End: 11-06-2023 ambulatory Bambi Amelia Facility:[facility] Start: 09-04-2023 End: 09-04-2023 Emergency department patient visit PHYSICIAN [facility] Start: 08-30-2023 Telephone encounter Hiram woodson MD Work Phone: [facility] Comment on above: Received Outside Med ical Records ([facility] re: Diabetes (08/28/23)) Start: 06-30-2023 Follow-up encounter Brian kelley MD Work Phone: [facility] Start: 06-30-2023 Patient encounter procedure Brian Hawley MD Work Phone: [facility] Start: 06-30-2023 End: 07-01-2023 ambulatory BRIAN HAWLEY Facility:[facility] Start: 05-02-2023 End: 05-03-2023 ambulatory HIRAM SYKES Facility:[facility] Start: 04-22-2023 Telephone encounter Brian kelley MD Work Phone: Cardiology Comment on above: Appointment Reschedu led (EPS-PPM Change) Start: 04-21-2023 End: 04-22-2023 ambulatory BRIAN HAWLEY Facility:[facility] Start: 04-21-2023 Follow-up encounter Brian kelley MD Work Phone: [facility] Start: 04-21-2023 End: 04-21-2023 Patient encounter procedure Brian Hawley MD Work Phone: [facility] Comment on above: Syncope, unspecified syncope type (Primary Dx) Start: 04-21-2023 End: 04-21-2023 Subsequent hospital visit by physician Xr Chest Main J1 Work Phone: Radiology Comment on above: Vasovagal syncope [R 55] Start: 04-08-2023 ambulatory Hiram quigley MD Work Phone: Internal Medicine Main [place] Start: 03-15-2023 Refill Hiram quigley MD Work Phone: [facility] Comment on above: Refill Request Start: 03-10-2023 Telephone encounter Hiram woodson MD Work Phone: [facility] Comment on above: outside notes Start: 03-03-2023 Orders Only Brian taylor MD Work Phone: Cardiology Comment on above: Vasovagal syncope (P rimary Dx) Schedule Surgery (EP S-PPM Change) Start: 02-24-2023 Follow-up encounter Brian kelley MD Work Phone: [facility] Start: 02-24-2023 Patient encounter procedure Brian Hawley MD Work Phone: [facility] Start: 02-24-2023 End: 02-24-2023 ambulatory HIRAM SYKES Facility:[facility] Start: 01-30-2023 ambulatory Hiram quigley MD Work Phone: [facility] Comment on above: Colorectal Screening Program Assistance (cologuard) Start: 01-16-2023 End: 01-16-2023 ambulatory HIRAM SYKES Facility:[facility] Start: 01-16-2023 Follow-up encounter Brian kelley MD Work Phone: [facility] Start: 01-16-2023 Patient encounter procedure Brian Hawley MD Work Phone: [facility] Start: 12-30-2022 End: 12-30-2022 ambulatory MARGIE SMITH Facility:[facility] Start: 12-30-2022 End: 12-30-2022 Patient encounter procedure Margie Smith DO Work Phone: Cardiology Comment on above: Coronary artery dise ase involving lytton coronary artery of lytton heart without angina pectoris (Primary Dx); H/O atrial fibrillation without current medication; Vasovagal syncope; History of pacemaker; Obesity, Class III, BMI 40-49.9 (morbid obesity) ([facility]); RENETTA on CPAP; Uncontrolled type 2 diabetes mellitus with hyperglycemia ([facility]) Start: 12-12-2022 Telephone encounter Hiram woodson MD Work Phone: [facility] Comment on above: Received Outside Med ical Records ([facility] endocrinology consult (12/11/22)) Start: 11-29-2022 End: 11-29-2022 ambulatory HIRAM SYKES Facility:[facility] Start: 10-18-2022 End: 10-18-2022 ambulatory HIRAM SYKES Facility:[facility] Start: 09-18-2022 End: 09-18-2022 ambulatory HIRAM NABILAEMMA Facility:[facility] Start: 09-18-2022 End: 09-18-2022 ambulatory Enmanuel Masters [facility] Work Phone: [facility] Comment on above: Uncontrolled type 2 diabetes mellitus with hyperglycemia (HCC) (Primary Dx) Start: 09-18-2022 End: 09-18-2022 Telemedicine consultation with patient Enmanuel Masters [facility] Start: 09-11-2022 ambulatory Hiram quigley MD Work Phone: [facility] Comment on above: Medication Problem Start: 09-04-2022 Telephone encounter Enmanuel pickering [facility] Work Phone: [facility] Comment on above: Patient Question (Tr esa NYDIA) Start: 08-20-2022 End: 08-20-2022 ambulatory Enmanuel Masters [facility] Work Phone: [facility] Comment on above: Uncontrolled type 2 diabetes mellitus with hyperglycemia (HCC) (Primary Dx) Start: 08-20-2022 End: 08-20-2022 Telemedicine consultation with patient Enmanuel Masters [facility] Start: 08-08-2022 Refill Hiram quigley MD Work Phone: [facility] Comment on above: Refill Request Start: 07-16-2022 End: 07-16-2022 ambulatory Enmanuel Masters [facility] Work Phone: [facility] Comment on above: Uncontrolled type 2 diabetes mellitus with hyperglycemia (HCC) (Primary Dx) Start: 07-16-2022 End: 07-16-2022 Telemedicine consultation with patient Enmanuel Masters [facility] Start: 07-15-2022 Follow-up encounter Brian kelley MD Work Phone: [facility] Start: 07-15-2022 End: 07-15-2022 Patient encounter procedure Brian Hawley MD Work Phone: [facility] Comment on above: Vasovagal syncope (P rimary Dx) Start: 06-11-2022 ambulatory Hiram quigley MD Work Phone: [facility] Comment on above: Dr. Onel pineda Visit Start: 06-11-2022 E-mail encounter fro m caregiver Hiram Sykes MD Work Phone[facility] Start: 06-10-2022 Telephone encounter Hiram woodson MD Work Phone: [facility] Comment on above: Patient Question Start: 06-07-2022 End: 06-07-2022 Patient encounter procedure Margie Smith DO Work Phone: Cardiology Comment on above: Coronary artery dise ase involving lytton coronary artery of lytton heart without angina pectoris (Primary Dx); H/O atrial fibrillation without current medication; History of pacemaker; Obesity, Class III, BMI 40-49.9 (morbid obesity) ([facility]); RENETTA on CPAP; Uncontrolled type 2 diabetes mellitus with hyperglycemia ([facility]) Start: 05-28-2022 ambulatory Hiram quigley MD Work Phone: Internal Medicine [facility] [place] Start: 05-21-2022 ambulatory Enmanuel Masters [facility] Work Phone: [facility] Comment on above: Manjit dan car n Start: 05-21-2022 E-mail encounter fro m caregiver Enmanuel Masters [facility] Phone[facility] Start: 05-21-2022 Telephone encounter Hiram woodson MD Work Phone: [facility] Comment on above: Orders ([facility] (05/21/22)) Start: 05-16-2022 E-mail encounter fro m caregiver Enmanuel Masters [facility] Work Phone: [facility] Start: 05-16-2022 Patient encounter procedure Enmanuel Masters [facility] Work Phone: [facility] Comment on above: Appointment with clarisa bernabe Start: 05-16-2022 Telephone encounter Enmanuel pickering [facility] Work Phone: [facility] Comment on above: PHMA/Care Gap Outrea ch Start: 04-05-2022 Refill Hiram quigley MD Work Phone: [facility] Comment on above: Refill Request Start: 03-12-2022 E-mail encounter maximino rosenthal caregiver Enmanuel Masters [facility] Phone[facility] Start: 03-12-2022 Nutrition therapy Enmanuel Masters [facility] Work Phone: [facility] Comment on above: Nutritional informat ion Start: 03-12-2022 End: 03-12-2022 ambulatory Enmanuel Masters [facility] Work Phone: [facility] Comment on above: Uncontrolled type 2 diabetes mellitus with hyperglycemia (HCC) (Primary Dx); Medication management Start: 03-12-2022 End: 03-12-2022 Telemedicine consultation with patient Enmanuel Masters [facility] Phone[facility] Start: 03-08-2022 ambulatory Hiram quigley MD [facility] Phone[facility] Start: 03-08-2022 Patient encounter procedure Hriam Sykes MD Work Phone: [facility] Comment on above: Clinical Update Start: 03-05-2022 End: 03-05-2022 Patient encounter procedure Hiram Sykes MD Work Phone: [facility] Comment on above: Uncontrolled type 2 diabetes mellitus with hyperglycemia (HCC) (Primary Dx); RENETTA on CPAP; Coronary artery disease involving lytton coronary artery of lytton heart without angina pectoris; H/O atrial fibrillation without current medication; History of pacemaker Start: 01-17-2022 End: 01-17-2022 ambulatory Phuong Jean APRN.CNP Work Phone: [facility] Comment on above: Viral illness (Prima ry Dx) Start: 01-17-2022 End: 01-17-2022 Telemedicine consultation with patient Phuong Pineda Ethan Jean APRN.CNP [facility] Start: 01-17-2022 Telephone encounter Hiram woodson MD Work Phone: [facility] Comment on above: Medication Request Patient Update (Insu gray Information) Start: 01-17-2022 End: 01-17-2022 ambulatory Nurse Triage Dequincy/Wads Work Phone: Nurse Phone Triage Comment on above: URI Start: 10-09-2021 End: 10-09-2021 ambulatory Hiram Sykes MD Work Phone: [facility] Comment on above: Uncontrolled type 2 diabetes mellitus with hyperglycemia (HCC) (Primary Dx); Coronary artery disease involving lytton coronary artery of lytton heart without angina pectoris; H/O atrial fibrillation without current medication; History of pacemaker; RENETTA on CPAP Start: 10-09-2021 End: 10-09-2021 Telemedicine consultation with patient Hiram Sykes MD [facility] Start: 04-02-2018 End: 04-02-2018 Emergency department patient visit [facility] Procedures Date Procedure Procedure Detail Performing Clinician Start: 06-14-2024 Ct upper extremity w /o contrast material Pratima Reardon MD Work Phone: Start: 06-14-2024 Arthrocentesis aspir &/inj major jt/bursa w/o us Amna Thomas PA-C Work Phone: Start: 05-14-2024 Radex shoulder compl ete minimum 2 views Cinda Brennan MD Work Phone: Start: 08-28-2023 Hemoglobin A1c/Hemoglobin.total in Blood [facility] Provider Start: 06-30-2023 PACEMAKER CLINIC CHECK Brian Hawley MD Work Phone: Start: 04-21-2023 Antibody screen HIRAM SYKES Comment on above: Order Comment: Speci men Type: BLOOD SPECIMENOrdering Facility: [facility] Address: [address] [place] [address] Performed By: #### T [id number] ####CC MAIN BLOOD BANKCLIA [id number] [facility] [address]ITALFrankie [id number] [address] [place] Start: 04-21-2023 PACEMAKER CLINIC CHECK Brian Hawley MD Work Phone: Start: 04-21-2023 Radiologic exam ches t 2 views Brian Hawley MD Work Phone: Start: 02-24-2023 PACEMAKER CLINIC CHECK Brian Hawley MD Work Phone: Start: 01-16-2023 PACEMAKER CLINIC CHECK Brian Hawley MD Work Phone: Start: 12-11-2022 Hemoglobin A1c/Hemoglobin.total in Blood [facility] Provider Start: 07-15-2022 PACEMAKER CLINIC CHECK Brian Hawley MD Work Phone: Start: 02-16-2019 Adult depression scr eening assessment Hiram Sykes MD Work Phone: Start: 03-16-2016 H/O: surgery S/p nephrectomy Hiram Sykes MD Work Phone: Plan of Treatment Date Care Activity Detail Author Start: 08-31-2025 DTaP/Tdap/Td vaccine (3 - Td or Tdap) DTaP/Tdap/Td vaccine (3 - Td or Tdap) [facility] [employer] Start: 08-31-2025 Urine microalbumin profile [facility] Start: 06-08-2024 End: 06-08-2024 Patient encounter procedure 06/08/2024 9:00 AM EST Appointment Fluency CT Scan [address] [place] [address] RockhamPratima jauregui MD [address] [id number] [employer] [place] [address] Scan Comment on above: [employer] Start: 04-21-2024 Hepatitis B screening Urine Albumin:Creatinine Ratio [facility] Start: 04-21-2024 Hepatitis B surface antibody level LDL Cholesterol [facility] Start: 03-07-2024 Glaucoma screening Dilated Retinal E xam [facility] Start: 03-07-2024 Hepatitis C antibody , confirmatory test Dilated Retinal Exam [facility] Start: 01-11-2024 COVID-19 Vaccine ( season) COVID-19 Vaccine () [facility] Start: 01-11-2024 Covid-19 Vaccine ( season) Covid-19 Vaccine () [facility] Start: 01-11-2024 Influenza vaccination C [facility] Start: 12-11-2023 Influenza vaccination Flu vaccine (# 1) [facility] Start: 10-21-2023 Hemoglobin A1c measurement HbA1C [facility] Start: 10-21-2023 Hemoglobin A1c/Hemoglobin.total in Blood HbA1C [facility] Start: 07-21-2023 Hemoglobin A1c measurement HbA1C [facility] Start: 06-11-2023 ANNUAL PCP TEAM CLINICAL LABORATORY TECHNOLOGIST EDEL DISEASE VISIT ANNUAL PCP TEAM CHRONIC DISEASE VISIT [facility] Start: 06-08-2023 Hepatitis B screening URINE ALBUMIN:CREATININE RATIO [facility] Start: 05-12-2023 Behavioral Health Screening Behavioral Health Screening [facility] Start: 05-12-2023 Depression Assessment Depression Ass essment [facility] Start: 04-16-2023 End: 03-03-2024 Basic metabolic 2000 panel - Serum or Plasma BASIC METABOLIC PNL Lab Routine Vasovagal syncope Expected: 04/16/2023, Expires: 03/03/[address] [facility] Work Phone: Comment on above: Expected: 04/16/2023 , Expires: 03/03/2024 Start: 04-16-2023 End: 07-16-2023 CBC panel - Blood by Automated count CBC Lab Routine Vasovagal syncope Expected: 04/16/2023, Expires: 07/16/[address] [facility] Work Phone: Comment on above: Expected: 04/16/2023 , Expires: 07/16/2023 Start: 04-16-2023 End: 03-03-2024 TYPE AND SCREEN,30 DAY TYPE AND SCREEN,30 DAY Blood Bank Routine Vasovagal syncope Expected: 04/16/2023, Expires: 03/03/[address] [facility] Work Phone: Comment on above: Expected: 04/16/2023 , Expires: 03/03/2024 Start: 04-08-2023 End: 07-08-2023 ALBUMIN/CREAT RATIO RND UR ALBUMIN/CREAT RATIO RND UR Lab Routine Uncontrolled type 2 diabetes mellitus with hyperglycemia (HCC) Expected: 04/08/2023, Expires: 07/08/[address] [facility] Work Phone: Comment on above: Expected: 04/08/2023 , Expires: 07/08/2023 Start: 04-08-2023 End: 07-08-2023 Hemoglobin A1c in Blood HGB A1C Lab Routine Uncontrolled type 2 diabetes mellitus with hyperglycemia (HCC) Expected: 04/08/2023, Expires: 07/08/[address] [facility] Work Phone: Comment on above: Expected: 04/08/2023 , Expires: 07/08/2023 Start: 04-08-2023 End: 07-08-2023 Lipid 1996 panel - Serum or Plasma LIPID PANEL BASIC Lab Routine Coronary artery disease involving lytton coronary artery of lytton heart without angina pectoris Expected: 04/08/2023, Expires: 07/08/[address] [facility] Work Phone: Comment on above: Expected: 04/08/2023 , Expires: 07/08/2023 Start: 2023 Shingles vaccine (1 of 2) Shingles vaccine (1 of 2) [facility] Start: 2023 Shingrix Vaccine (1 of 2) Shingrix Vaccine (1 of 2) [facility] Start: 03-09-2023 Hepatitis B surface antibody level LDL CHOLESTEROL [facility] Start: 03-05-2023 ANNUAL PCP TEAM CLINICAL LABORATORY TECHNOLOGIST EDEL DISEASE VISIT ANNUAL PCP TEAM CHRONIC DISEASE VISIT [facility] Start: 03-05-2023 COVID-19 VACCINE (#1) COVID-19 VACCI NE (#1) [facility] Comment on above: Postponed from 09/29 (Declined at this time) Start: 03-05-2023 PNEUMOCOCCAL (2 - PCV) PNEUMOCOCCAL (2 - PCV) [facility] Comment on above: Postponed from 03/08 (Declined at this time) Start: 03-05-2023 Pneumococcal vaccination Pneum ococcal Vaccine (2 - PCV) [facility] Comment on above: Postponed from 03/08 (Declined at this time) Start: 01-17-2023 ANNUAL PCP TEAM CLINICAL LABORATORY TECHNOLOGIST EDEL DISEASE VISIT ANNUAL PCP TEAM CHRONIC DISEASE VISIT [facility] Start: 01-10-2023 Covid-19 Vaccine ( season) Covid-19 Vaccine () [facility] Start: 01-10-2023 Influenza vaccination C [facility] Start: 11-08-2022 Influenza vaccination INFLUENZA (#1) [facility] Comment on above: Postponed from 01/10 (Declined at this time) Start: 10-09-2022 ANNUAL PCP TEAM CLINICAL LABORATORY TECHNOLOGIST EDEL DISEASE VISIT ANNUAL PCP TEAM CHRONIC DISEASE VISIT [facility] Start: 09-06-2022 End: 11-06-2022 Hemoglobin A1c in Blood HGB A1C Lab Routine Uncontrolled type 2 diabetes mellitus with hyperglycemia (HCC) Expected: 09/06/2022, Expires: 11/06/[address] [facility] Work Phone: Comment on above: Expected: 09/06/2022 , Expires: 11/06/2022 Start: 09-06-2022 Hemoglobin A1c/Hemoglobin.total in Blood HBA1C [facility] Start: 07-25-2022 Hepatitis C antibody , confirmatory test DILATED RETINAL EXAM [facility] Start: 06-09-2022 Hemoglobin A1c/Hemoglobin.total in Blood HBA1C [facility] Start: 05-28-2022 End: 07-28-2022 ALBUMIN/CREAT RATIO RND UR ALBUMIN/CREAT RATIO RND UR Lab Routine Uncontrolled type 2 diabetes mellitus with hyperglycemia (HCC) Expected: 05/28/2022, Expires: 07/28/[address] [facility] Work Phone: Comment on above: Expected: 05/28/2022 , Expires: 07/28/2022 Start: 05-28-2022 End: 07-28-2022 Basic metabolic 2000 panel - Serum or Plasma BASIC METABOLIC PNL Lab Routine Uncontrolled type 2 diabetes mellitus with hyperglycemia (HCC) Expected: 05/28/2022, Expires: 07/28/[address] [facility] Work Phone: Comment on above: Expected: 05/28/2022 , Expires: 07/28/2022 Start: 05-28-2022 End: 07-28-2022 Hemoglobin A1c in Blood HGB A1C Lab Routine Uncontrolled type 2 diabetes mellitus with hyperglycemia (HCC) Expected: 05/28/2022, Expires: 07/28/[address] [facility] Work Phone: Comment on above: Expected: 05/28/2022 , Expires: 07/28/2022 Start: 05-28-2022 End: 07-28-2022 SCHEDULE LAB TESTING SCHEDULE LAB TESTING Lab Routine Expected: 05/28/2022, Expires: 07/28/[address] [facility] Work Phone: Comment on above: Expected: 05/28/2022 , Expires: 07/28/2022 Start: 05-22-2022 Hepatitis B screening URINE ALBUMIN:CREATININE RATIO [facility] Start: 05-22-2022 Hepatitis B surface antibody level LDL CHOLESTEROL [facility] Start: 05-12-2022 DEPRESSION ASSESSMENT DEPRESSION ASS ESSMENT [facility] Start: 03-05-2022 End: 05-05-2022 CBC panel - Blood by Automated count CBC Lab Routine Uncontrolled type 2 diabetes mellitus with hyperglycemia (HCC) Coronary artery disease involving lytton coronary artery of lytton heart without angina pectoris Expected: 03/05/2022, Expires: 05/05/[address] [facility] Work Phone: Comment on above: Expected: 03/05/2022 , Expires: 05/05/2022 Start: 03-05-2022 End: 05-05-2022 Comprehensive metabolic 2000 panel - Serum or Plasma COMP METABOLIC PANEL Lab Routine Uncontrolled type 2 diabetes mellitus with hyperglycemia (HCC) Coronary artery disease involving lytton coronary artery of lytton heart without angina pectoris Expected: 03/05/2022, Expires: 05/05/[address] [facility] Work Phone: Comment on above: Expected: 03/05/2022 , Expires: 05/05/2022 Start: 03-05-2022 End: 05-05-2022 Hemoglobin A1c in Blood HGB A1C Lab Routine Uncontrolled type 2 diabetes mellitus with hyperglycemia (HCC) Expected: 03/05/2022, Expires: 05/05/[address] [facility] Work Phone: Comment on above: Expected: 03/05/2022 , Expires: 05/05/2022 Start: 03-05-2022 End: 05-05-2022 Lipid 1996 panel - Serum or Plasma LIPID PANEL BASIC Lab Routine Uncontrolled type 2 diabetes mellitus with hyperglycemia (HCC) Coronary artery disease involving lytton coronary artery of lytton heart without angina pectoris Expected: 03/05/2022, Expires: 05/05/[address] [facility] Work Phone: Comment on above: Expected: 03/05/2022 , Expires: 05/05/2022 Start: 01-17-2022 End: 01-31-2022 Influenza virus A and B RNA and SARS-CoV-2 (COVID-19) N gene panel - Respiratory specimen by KAMLESH with probe detection COVID WITH FLUA+B, ROUTINE Microbiology Routine Viral illness Expected: 01/17/2022, Expires: 01/31/[address] [facility] Work Phone: Comment on above: Expected: 01/17/2022 , Expires: 01/31/2022 Start: 01-10-2022 Influenza vaccination C [facility] Start: 08-20-2021 Hemoglobin A1c/Hemoglobin.total in Blood HBA1C [facility] Start: 05-12-2021 DEPRESSION ASSESSMENT DEPRESSION ASS ESSMENT [facility] Start: 10-04-2020 3 comp foot exam completed DIABETIC FOOT EXAM [facility] Start: 10-04-2020 Diabetic foot examination Diabetic Foot Exam [facility] Start: 02-17-2020 Adult depression screening assessment DEPRESSION SCREENING [facility] Start: 11-12-2019 Hepatitis C antibody , confirmatory test DILATED RETINAL EXAM [facility] Start: 2018 COLOGUARD (FIT-DNA) COLOGUARD (FIT-D NA) [facility] Start: 2018 Colonoscopy COLONOSCOPY [facility] Start: 2018 COLORECTAL CANCER SCREENING COLORECTAL CANCER SCREENING [facility] Start: [address] COLONOGRAPHY [facility] Start: 2018 FECAL OCCULT BLOOD FECAL OCCULT BLOO D [facility] Start: 2018 Screening for malign ant neoplasm of colon [facility] Start: 2018 SIG[facility] Start: 03-08-2015 PNEUMOCOCCAL (2 - PCV) PNEUMOCOCCAL (2 - PCV) [facility] Start: 03-08-2015 PNEUMOCOCCAL (3 - PCV) PNEUMOCOCCAL (3 - PCV) [facility] Start: 03-08-2015 Pneumococcal vaccination [facility] Start: 2008 Diabetes screen Diabetes screen [facility] Start: 1992 HEPATITIS B (1 of 3 - Risk 3-dose series) HEPATITIS B (1 of 3 - Risk 3-dose series) [facility] Start: 1992 Hepatitis B Vaccine (1 of 3 - 19+ 3-dose series) Hepatitis B Vaccine (1 of 3 - 19+ 3-dose series) [facility] Start: 1991 Anxiety Screening Anxiety Screening [facility] Start: 1991 Depression Screening Depression Scre ening [facility] Start: 1991 Hepatitis C screening Hepatitis C sc reen [facility] Start: 1988 HIV screening HIV screen [facility] Start: 1985 Depression Screen Depression Screen [facility] Start: 1983 Lipid panel Lipids [facility] Start: 1978 COVID-19 VACCINE (#1) COVID-19 VACCI NE (#1) [facility] Start: 1973 COVID-19 VACCINE (#1) COVID-19 VACCI NE (#1) [facility] Start: 1973 HEPATITIS B (1 of 3 - 3-dose series) HEPATITIS B (1 of 3 - 3-dose series) [facility] Start: 1973 Hepatitis B Vaccine (1 of 3 - 3-dose series) Hepatitis B Vaccine (1 of 3 - 3-dose series) [facility] metabo lic 1999 panel - Serum or Plasma [facility] metabo lic 1999 panel - Serum or Plasma [facility] End: 03-03-2024 ECG COMPLETE ECG COMPLETE ECG Routine Vasovagal syncope 1 Occurrences starting 03/03/2023 until 03/03/[address] [facility] Work Phone: Comment on above: 1 Occurrences starti ng 03/03/2023 until 03/03/2024 Lipid 1996 panel - S brianne or Plasma [facility] Lipid 1996 panel - S brianne or Plasma [facility] End: 2024 Radiologic exam chest 2 views XR CHEST 2V FRONTAL/LAT Radiology Routine Vasovagal syncope 1 Occurrences starting 03/03/2023 until [address] [facility] Work Phone: Comment on above: 1 Occurrences starti ng 03/03/2023 until 2024 Thyroid stimulating hormone measurement [facility] Thyroid stimulating hormone measurement [facility] Urine microalbumin/creatinine ratio measurement [facility] Urine microalbumin/creatinine ratio measurement [facility] Vitamin D, 25-hydrox y measurement [facility] Immunizations Immunization Date Immunization Notes Care Provider Fa [facility] 02-16-2019 influenza virus vacc ine, unspecified formulation Hiram Sykes MD Work Phone: [facility] 09-01-2015 tetanus toxoid, redu marquez diphtheria toxoid, and acellular pertussis vaccine, adsorbed Hiram Sykes MD Work Phone: [facility] 03-08-2014 pneumococcal polysaccharide vaccine, 23 natalya Sykes MD Work Phone: [facility] 03-08-2014 tetanus toxoid, redu marquez diphtheria toxoid, and acellular pertussis vaccine, adsorbed Hiram Sykes MD Work Phone: [facility] 12-22-2013 pneumococcal polysaccharide vaccine, 23 natalya Sykes MD Work Phone: [facility] Work Phone: Payers Date Payer Category Payer Unknown [id number] 2023 Self-pay 2022 Unknown [id number] 2022 Unknown [id number] 2022 Unknown [id number] 2022 Unknown [id number] 2020 Private Health Insurance [facility] [id number] 2020-Present [phone] [address] [address] [place] [address] HMO [id number] 2020 Private Health Insurance [facility] [id number] 2020-Present [phone] [address] [address] [place] [address] HMO [id number] 1973 Unknown [id number] 1973 Unknown [id number] 185 1973 Unknown [id number] 185 1973 Unknown [id number] 182 1973 Unknown [id number] 182 1973 Unknown [id number] 182 Unknown [id number] 462 Unknown [id number] 462 Unknown [id number] 462 Unknown [id number] 462 Unknown [id number] 462 Social History Date Type Detail Facility Start: 03-21-2015 End: 08-28-2023 Tobacco smoking status PRIS Never smoked tobacco [facility] Start: 03-21-2015 End: 05-27-2024 Tobacco use and exposure Smokeless tobacco non-user [facility] Start: 03-02-2020 End: 06-14-2024 Alcohol intake Current drinker of alcohol (finding) [facility] Start: 09-01-2015 History SDOH Alcohol Comment minimal ( 6 pack will last for 1 year) [facility] Start: 1975 Sex Assigned At Not on file C [facility] Start: 01-07-2022 End: 03-05-2022 Exposure to SARS-CoV-2 (event) Not sure [facility] Start: 06-11-2022 History SDOH Alcohol Frequency 2 [facility] Start: 06-11-2022 History SDOH Alcohol Std Drinks 1 [facility] Start: 06-11-2022 History SDOH Social Connections Phone 98 [facility] Start: 06-11-2022 History SDOH Social Connections Living 3 [facility] Start: 06-11-2022 History SDOH Physica l Activity DPW 0 [facility] Start: 06-11-2022 History SDOH Financial 5 [facility] Start: 06-11-2022 End: 05-27-2024 History of Social function [facility] Start: 06-11-2022 End: 05-27-2024 Social connection and isolation panel [facility] In a typical week, h ow many times do you talk on the telephone with family, friends, or neighbors? Patient refused [facility] Do you belong to any clubs or organizations such as uatsdin groups, unions, fraternal or athletic groups, or school groups? No [facility] Are you now , , , , never or living with a partner? [facility] How often to you hav e a drink containing alcohol? Monthly or less [facility] How many standard dr inks containing alcohol do you have on a typical day? 1 or 2 [facility] How often do you hav e 6 or more drinks on 1 occasion? Never [facility] Do you feel stress - tense, restless, nervous, or anxious, or unable to sleep at night because your mind is troubled all the time - these days [OSQ] Not at all [facility] (I/We) worried wheth er (my/our) food would run out before (I/we) got money to buy more. Never true [facility] Start: 05-27-2024 Alcohol Comment 1 drink a month [facility] Start: 1975 Sex Assigned At Male W [facility] Medical Equipment Procedure Code Equipment Code Equipment Origin al Text Equipment Identifier Dates [id number], [id number] Start: 06-22-2019 End: 08-08-2022 Comment on above: Use to check blood s ugars twice daily or as directed. To use with ozempic pen [id number] Capsurefi x Novus [id number]_[id number] Start: 02-06-2009 [id number] Capsurefi x Novus [id number] Start: 02-06-2009 [id number] [employer] Xt [id number] Start: 05-02-2023 Blood Sugar Diagnostic (Onetouch Ultra Test) strip Start: 08-28-2023 Pen Needle, Diabetic (Bd Ultra-Fine Sanna Pen Needle) 32 gauge x 5/32 needle Start: 12-11-2022 Pen Needle, Diabetic (Bd Ultra-Fine Sanna Pen Needle) 32 gauge x 5/32 needle Start: 07-20-2024 Pen Needle, Diabetic (Bd Ultra-Fine Sanna Pen Needle) 32 gauge x 5/32 needle Start: 08-28-2023 End: 01-15-2024 Pen Needle, Diabetic (Bd Ultra-Fine Sanna Pen Needle) 32 gauge x 5/32 needle Start: 01-15-2024 End: 07-20-2024 Clinical Notes 12-25-2015 to 07-29-2024 Note Date & Type Note Facility 07-29-2024 Evaluation note Diagnosis Onset Date Resolution Cough acute July 29 8:08am Diabetes chronic July 29 8:08am High cholesterol chronic July 292024 8:08am Hypertension chronic July 29, 2024 8:08am Obesity chronic July 29 8:08am [facility] Work Phone: 1(769) 555-218002-03-2025 Hospital Discharge instructions* Discharge Instructions* Annelise Castillo RN - 06/14/2024 10:03 AM EST Images from the original note were not included. ARTHROGRAM DISCHARGE INSTRUCTION Arthrogram: About This Test What is an arthrogram? An arthrogram is a test to take pictures of the tissues inside your joint. These tissues include tendons, ligaments, muscles, and cartilage. First your doctor injects a contrast material, such as a dye or air, into your joint. Thenimaging is done with X-rays, an MRI, or a CT scan. Why is it done? An arthrogram is used to find the cause of symptoms in your joint. Symptoms may include pain, swelling, or abnormal movement of your joint. It may also be doneto see if you can be helped with surgery, such as arthroscopy. An arthrogram can: Find problems in your joint capsule, ligaments, or cartilage. Problems could include tears, arthritis, or disease. For example, this test may be used to help find problems such as rotator cuff tears.It may find problems with the bones of the joint. Find fluid-filled cysts. How is it done? The skin and tissues over the joint will be numbed with medicine. The doctor will put a small needle into your joint. He or she may remove a sample of the joint fluid for testing. Your doctor may use a fluoroscope to guide the needle and take a series of X-ray pictures of the joint. The doctor will inject a contrast material into your joint. This is usually dye, but it can also besaline, air, or a combination. It helps the doctor see the soft tissues of the joint. Then the doctor removes the needle. You may be asked to be still. Or you may be asked to move your joint. You may also have an MRI or a CT scan to get images of the joint. What happens after the test? Activity: Rest, avoid strenuous activity such as bending or lifting heavy objects for at least 24 hours. Be aware that your leg or arm (depending on injection site) may feel heavy for up to 4 hours. May shower, bathe, or swim after 24 hours. Diet: Resume usual diet Medication: * Resume home medication unless otherwise instructed by your physician. * May take mild pain reliever, as needed, such as Acetaminophen or Ibuprofen. INSTRUCTIONS OR COMMENTS RELATIVE TO SPECIFIC EXAM PERFORMED: - You may have some soreness or swelling in the joint. - You may hear your joint click or make other noises for a few days. - If any signs of infection (redness, swelling, pus) at the site, Go to ER for evaluation. - For large amount of bleeding or drainage, Go to ER for evaluation. Please contact Dr. Waterman's office with any questions or concerns post procedure at [phone]. You may also call [phone] and ask to speak with a staple laster. If you are unable to contact the above physician and you feel you have a major problem, please go to the Emergency Room for treatment. documented in this [facility]Bon [facility] History of Present illness Narrative* Jaqueline Pizarro, PT - 06/01/2024 8:00 AM EST Physical Therapy: Daily Note Patient: Margie Haynes (49 y.o. male) Examination Date: 06/01/2024 No data recorded No data recorded : 1975 # of Visits since SOC: 1 CSN: [id number] Start of Care Date: 06/01/2024 Insurance: Payor: GENERIC MCO / Plan: GENERIC MCO WC / Product Type: *No Product type* / - (Worker's Comp) Secondary Insurance (if applicable): Referring Physician: Jovani Anguiano DO PCP: Hailey Zambrano MD Visits to Date/Visits Approved: / No Show/Cancelled Appts: 1 / Medical Diagnosis: Strain of muscle(s) and tendon(s) of the rotator cuff of left shoulder, initial encounter [S46.012A] Strain of muscle, fascia and tendon at neck level, initial encounter [S16.1XXA] No data recorded OBJECTIVE EXAMINATION Pt failed to show for OP [facility] PT evaluation for Lshoulder this date. Therapy Time Individual Time In: Individual Time Out: Minutes: 5 Waited 10 minutes for pt 800-810 AM NOTE documented in this encounterBon [facility] Telephone encounter Note* Telephone Encounter - Lindsay Gray - 12/19/2023 2:32 PM EDT Called and spoke to patient's , states they changed pcp [facility]08-09-2024 Miscellaneous Notes* Telephone Encounter - Lindsay Gray - 12/19/2023 2:32 PM EDT Called and spoke to patient's , states they changed pcp * Telephone Encounter - Celsa Carter APRN.CNP - 12/19/2023 10:02 AM EDT Patient needs follow up for future refills * Telephone Encounter - Ghazala Ordaz MA - 12/19/2023 9:58 AM EDT Prescription Refill Information The patient has been identified by name and date of : Yes Caregiver verified no other encounters exist for this prescription request: Yes Caregiver confirmed with patient/requestor that no other refills are due, in the near future, with this provider at this time: Yes The last office visit in the department: 03/05/2022 Does the patient have a future office visit with this provider/department: Visit date not found Requested Prescriptions Pending Prescriptions Disp Refills lisinopril (ZESTRIL) 10 mg tablet [Pharmacy Med Name: LISINOPRIL 10 MG TABLET] 94 tablet Sig: take 1 tablet by mouth once daily Ghazala Ordaz MA December 19, 2023 9:59 AM [facility] Telephone encounter Note * Telephone Encounter - Celsa Carter APRN.CNP - 12/19/2023 10:02 AM EDT Patient needs follow up for future refills [facility]08-09-2024 Telephone encounter Note* Telephone Encounter - Ghazala Ordaz MA - 12/19/2023 9:58 AM EDT Prescription Refill Information The patient has been identified by name and date of : Yes Caregiver verified no other encounters exist for this prescription request: Yes Caregiver confirmed with patient/requestor that no other refills are due, in the near future, with this provider at this time: Yes The last office visit in the department: 03/05/2022 Does the patient have a future office visit with this provider/department: Visit date not found Requested Prescriptions Pending Prescriptions Disp Refills lisinopril (ZESTRIL) 10 mg tablet [Pharmacy Med Name: LISINOPRIL 10 MG TABLET] 94 tablet Sig: take 1 tablet by mouth once daily Ghazala Ordaz MA December 19, 2023 9:59 AM [facility]04-20-2024 Miscellaneous Notes* Telephone Encounter - Hiram Sykes MD - 08/30/2023 11:51 AM EDT Patient was seen for follow-up of diabetes Hemoglobin A1c is 10.9 significantly increased from 03/13/2023 when it was 7.9% Has lost about 4 pounds Insurance did not cover the GLP-1 or the SGLT2 Has been doing Basaglar 15 units once daily, glimepiride 4 mg twice a day and metformin 500 mg twice a day with food Diabetes: Increase Basaglar to 18 units once daily Start Humalog 6 units with meals and sliding scale Increase blood sugar checks to minimum 3 times a day Recommend to stop drinking pop Will resume GLP-1 and/or SGLT2 if insurance situation changes Follow-up in 4 weeks Hypertension: Blood pressure still elevated If still elevated at follow-up we will increase lisinopril * Telephone Encounter - Mirna Woodson MA - 08/30/2023 11:05 AM EDT Received patient's Office Notes re: Diabetes (dos: 08/28/23) from [facility] placedin provider's in box to be for reviewed & signed with providers approval to be sent to scanning. Mirna Brooks) documented [facility]12[facility]23 NoteHNO ID: [id number] Author: Hannah Reeves RN Service: ? Author Type: Registered Nurse Type: Progress Notes Filed: 05/01/2023 12:50 PM Note Text: THE FOLLOWING WAS EVALUATED Motivation To Learn: Interested Family/Significant Other Support: Unable to assess - Family not present Cognitive Ability: Alert and oriented Patient Learns Best By: Individual Instruction The Following Influencing Factors Were Barriers To This Education Session: None The Following Physical Limitations Were Barriers To This Education Session: None Instruction Provided To: Spouse Procedure: PPM Generator Change Pre-procedure information reviewed: Patient ID verified Procedure verified Physician verified Explanation of procedure Sedation level during procedure MD medication instructions from EP lab request: No meds to hold Travel instructions/restrictions Scheduling information Possible same day discharge versus overnight hospital stay Check out time Family waiting area Physician contact with family after procedure Post Procedure Expectations reviewed: Inpatient hospital stay Post procedure antiarrhythmics and anticoagulation will be discussed with Physician, nurse practitioner or Physician video production assistant upon discharge Instructions for transmitting EKG to Monitoring Center 3 month follow up instructions Contact number for information and questions Patient Evaluation: Verbalizes understanding Follow Up Plan: Follow up as directed by MD. Supplemental Material Given: Written Material Patient education regarding radiation exposure. Instructed By Hannah Reeves, RN, RN. In Department of CARDIOLOGY.[facility]12-21-2023 NoteEducation (EPSMN) MARGIE HAYNES ([id number]) 1975 Date Time Provider Department 05/01/23 BRIAN HAWLEY EPSMN Reason for Visit: Patient Education [91] Cmt: PPM Change During your visit today, we recorded the following information about you: Allergies As of Date: 05/01/2023 Noted Allergy Reaction AMOXICILLIN 03/21/2015 16 - Unknown Comments: Rash at 3 years of age. Has tolerated augmentin in the past. METFORMIN 06/22/2019 8 - GI Upset Date Reviewed: 12/30/2022 Reviewed by: Arnold Estrella LPN - Fully Assessed Prescriptions as of 05/01/2023 - atorvastatin (LIPITOR) 20 mg tablet take 1 tablet by mouth every day - lisinopril (ZESTRIL) 10 mg tablet take 1 tablet by mouth every day - OZEMPIC 0.25 mg or 0.5 mg (2 mg/3 mL) pen 0.5 mg once weekly - LEVEMIR FLEXPEN 100 unit/mL (3 mL) injection pen 15 units once daily at nighttime - metFORMIN ER (GLUCOPHAGE XR) 500 mg 24 hr tablet Take 1 tablet by mouth twice daily with meals. May gradually increase up to 4 tablets daily as tolerated. - ONETOUCH ULTRA TEST test strip USE TO CHECK BLOOD SUGARS TWICE DAILY OR DIRECTED. - lancets (ONE TOUCH DELICA) 33 gauge USE TO CHECK BLOOD SUGARS TWICE DAILY OR DIRECTED. - glimepiride (AMARYL) 4 mg tablet Take 1 tablet by mouth twice daily with meals. - CPAP BiPAP supplies including large mask, tubing and headgear for BiPAP Auto Remstar F10 machine - aspirin, enteric coated (ECOTRIN LOW STRENGTH) 81 mg EC tablet Take 1 tablet by mouth once daily. - cetirizine (ZYRTEC) 10 mg tablet Take 1 tablet by mouth once daily. Encounter Status:Closed by HANNAH REEVES RN on 05/01/23[facility]12-12-[facility]23 Miscellaneous Notes* Telephone Encounter - Brittney Bailey RN - 04/22/2023 4:46 PM EST Called and spoke to the patient's . Patient rescheduled from 05/16/23 to the new date of 05/02/23as requested by Dr. Hawley. Brittney Bailey RN documented in [facility]Mi[facility]12-[facility]-2023 NoteHNO ID: [id number] Author: Brian Hawley MD Service: ? Author Type: Physician Type: Progress Notes Filed: 04/21/2023 5:34 PM Note Text: Heart and Vascular [facility] Department of Cardiovascular Medicine SECTION OF CARDIAC PACING and ELECTROPHYSIOLOGY OUTPATIENT VISIT DATE April 21, 2023 OUTPATIENT VISIT TYPE ESTABLISHED PRIMARY CARE PHYSICIAN: Hiram Sykes [address] [place] [address] REFERRING PHYSICIAN: Brian Hawley [facility] [facility] [address] CHIEF COMPLAINT: HISTORY OF PRESENT ILLNESS: Mr. Haynes is a 48 year old male who presents today for follow-up visit. NURSING INTAKE HISTORY: Margie Haynes presents today for follow up visit and device management. He has a past medical history of syncope s/p dual chamber PPM (2008), HI with CAD with normal coronaries, RENETTA on CPAP, and renal cancer. His device reached [employer]NER/Kyrie on 02/19/23. He is scheduled for generator change on 05/16/23. Patient states that he has been feeling well. His spouse notes an increase in generalized fatigue noting that he has fallen asleep when going out for dinner. He denies abdominal distention, chest pain, shortness of breath, orthopnea, cough, edema, palpitations, PND, lightheadedness or syncope. 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 PAST MEDICAL HISTORY Diagnosis Date Atrial fibrillation (HCC) Controlled type 2 diabetes mellitus without complication, without long-term current use of insulin ([facility]) 12/08/2015 Coronary artery disease 2013 hx HI 2013 History of pacemaker 2008 a fib Left kidney mass HI (myocardial infarction) ([facility]) 2013 Nephrolithiasis 1996 passed spontaneously RENETTA on CPAP Renal cancer (HCC) 11/20/15 left, pending surgery PAST SURGICAL HISTORY Procedure Laterality Date ADENOIDECTOMY SECONDARY AGE 10/> age 3 APPENDECTOMY 02/2018 CARDIAC PACEMAKER PLACEMENT HX 2008 HEART CATHETERIZATION 2014 HI, neg PAST SURGICAL HISTORY OF 12/2015 ROBOTIC LAPAROSCOPIC NEPHRECTOMY RADICAL (Left) SOCIAL HISTORY Social History Tobacco Use Smoking status: Never Smokeless tobacco: Never Vaping Use Vaping Use: Never used Substance Use Topics Alcohol use: Yes Comment: minimal ( 6 pack will last for 1 year) Drug use: No FAMILY HISTORY Problem Relation Age of Onset other (Cancer, cervical/ intestinal[other]) Mother other (Cancer, pancreatic[other]) Maternal Grandmother 73 yrs other (Cancer, leukemia[other]) Paternal Grandmother 70 yrs Diabetes Maternal Uncle other (TIA[other]) Brother due to chemicals on job COPD Father 86 yrs Cataract Father ALLERGIES: ALLERGIES Allergen Reactions Amoxicillin Unknown Rash at 3 years of age. Has tolerated augmentin in the past. Metformin GI Upset MEDICATIONS: atorvastatin (LIPITOR) 20 mg tablet take 1 tablet by mouth every day lisinopril (ZESTRIL) 10 mg tablet take 1 tablet by mouth every day OZEMPIC 0.25 mg or 0.5 mg (2 mg/3 mL) pen 0.5 mg once weekly LEVEMIR FLEXPEN 100 unit/mL (3 mL) injection pen 15 units once daily at nighttime metFORMIN ER (GLUCOPHAGE XR) 500 mg 24 hr tablet Take 1 tablet by mouth twice daily with meals. May gradually increase up to 4 tablets daily as tolerated. ONETOUCH ULTRA TEST test strip USE TO CHECK BLOOD SUGARS TWICE DAILY OR DIRECTED. glimepiride (AMARYL) 4 mg tablet Take 1 tablet by mouth twice daily with meals. CPAP BiPAP supplies including large mask, tubing and headgear for BiPAP Auto Remstar F10 machine aspirin, enteric coated (ECOTRIN LOW STRENGTH) 81 mg EC tablet Take 1 tablet by mouth once daily. cetirizine (ZYRTEC) 10 mg tablet Take 1 tablet by mouth once daily. lancets (ONE TOUCH DELInnoVital Systems) 33 gauge USE TO CHECK BLOOD SUGARS TWICE DAILY OR DIRECTED. Maria Mann, RN EP STAFF NOTE: Please note: This note has been produced using speech recognition software and may contain errors related to that system including grammar, punctuation, spelling, gender and words and phrases that may be inappropriate Consultation requested by Dr. Smith for an opinion regarding management of a previously placed PPM and my final recommendations will be communicated back to the requesting physician by way of shared medical record OR letter via fax/US mail. I have reviewed the above information and examined the patient and confirm the above with the following additions/modifications. ECG: PE: Vitals: BP 113/76 Pulse 82 Ht 172.7 cm (5' 8) Wt 113.4 kg (250 lb) BMI 38.01 kg/m? General: Appears well nourished. In no acute distress. Lungs: Unlabored Heart: RRR Extremities: No peripheral edema bilaterally. DEVICE CHECK: : PRESENTS FOR: Battery assessment PRESENTING EGM: VS UNDERLYING RHYTHM: SR BATTERY STATUS: KYRIE triggered 02/19/23. Device now programmed VVI 65bpm CO (more content not included)...[facility]12-11-2023 NoteHNO ID: [id number] Author: Kat Gamez RT(R) Service: Radiology Author Type: Technologist Type: Progress Notes Filed: 04/21/2023 12:58 PM Note Text: Radiology Service Progress Note PATIENT NAME: Margie Haynes DATE OF SERVICE: April 21, 2023 TIME: 12:57 PM PATIENT IDENTITY VERIFICATION COMPLETED USING TWO (2) IDENTIFIERS: Name and Date of confirmed by patient verbally. FALL SCREENING: Has the patient had 2 falls in the last year or 1 fall with injury or currently using an Ambulatory Assistive Device (Walker,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 HISTORY Problem Relation Age of Onset other (Cancer, cervical/ intestinal[other]) Mother other (Cancer, pancreatic[other]) Maternal Grandmother 73 yrs other (Cancer, leukemia[other]) Paternal Grandmother 70 yrs Diabetes Maternal Uncle other (TIA[other]) Brother due to chemicals on job COPD Father 86 yrs Cataract Father SOCIAL HISTORY Social History Tobacco Use Smoking status: Never Smokeless tobacco: Never Vaping Use Vaping Use: Never used Substance Use Topics Alcohol use: Yes Comment: minimal ( 6 pack will last for 1 year) Drug use: No ALLERGIES: Amoxicillin and Metformin CURRENT MEDICATIONS: Current Outpatient Medications Medication Sig OZEMPIC 0.25 mg or 0.5 mg (2 mg/3 mL) pen 0.5 mg once weekly LEVEMIR FLEXPEN 100 unit/mL (3 mL) injection pen 15 units once daily at nighttime metFORMIN ER (GLUCOPHAGE XR) 500 mg 24 hr tablet Take 1 tablet by mouth twice daily with meals. Maygradually increase up to 4 tablets daily as tolerated. diphenoxylate-atropine (LOMOTIL) 2.5-0.025 mg per tablet Take 1 tablet by mouth four times daily asneeded for diarrhea for up to 30 days. Bloom Studio ULTRA TEST test strip USE TO CHECK BLOOD SUGARS TWICE DAILY OR DIRECTED. lancets (ONE TOUCH DELInnoVital Systems) 33 gauge USE TO CHECK BLOOD SUGARS TWICE DAILY OR DIRECTED. glimepiride (AMARYL) 4 mg tablet Take 1 tablet by mouth twice daily with meals. atorvastatin (LIPITOR) 20 mg tablet Take 1 tablet by mouth once daily. lisinopril (ZESTRIL, PRINIVIL) 10 mg tablet Take 1 tablet by mouth once daily. Blood-Glucose Meter (Blo[employer] Studio ULTRAMINI) monitoring kit Use to check blood sugars twice daily or asdirected. CPAP BiPAP supplies including large mask, tubing and headgear for BiPAP Auto Remstar F10 machine aspirin, enteric coated (ECOTRIN LOW STRENGTH) 81 mg EC tablet Take 1 tablet by mouth once daily. cetirizine (ZYRTEC) 10 mg tablet Take 1 tablet by mouth once daily. No current facility-administered medications for this visit. ROS: Card: See present history. Pulm: Negative for cough, hemoptysis, wheezing, COPD, dyspnea or shortness of breath Gastro: No nausea, vomiting, or diarrhea GenUr: No history of dysuria, frequency or incontinence Endo: Negative for cold or heat intolerance, polyuria or polydipsia. Neuro: no focal weakness, focal sensory loss, headache, visual changes, seizure activity, ataxia, speech/language loss. Musculoskeletal: Negative for joint or muscle pain, back pain, or swelling. Infect: no fevers, chills, rigors or night sweats. Skin: Negative for lesions, rash, and itching. Heme: Negative for prolonged bleeding, bruising easily or swollen nodes. The remainder of the review of systems is negative. PHYSICAL EXAMINATION: GENERAL: alert cooperative, pleasant oriented x 3 (self, time and place) in no acute distress obese BP 108/72 Pulse 87 Ht 172.7 cm (5' 8) Wt 117.5 kg (259 lb) SpO2 98% BMI 39.38 kg/m Last 3 Encounter BP Readings: Date: BP: 05/20/2018 118/64 04/14/2018 131/70 04/02/2018 158/88 Last 3 Encounter Pulse Readings: Date: Pulse: 05/20/2018 74 04/14/2018 83 04/02/2018 88 Last 3 Encounter Wt Readings: Date: Wt: 05/20/2018 128 kg (282 lb 1.6 oz) 04/14/2018 126 kg (277 lb 12.8 oz) 04/02/2018 123.4 kg (272 lb) SKIN: warm, dry, no rash. NECK: supple, no palpable masses, no JVD, carotids well felt, no bruits. CARDIAC: Philo palpable in the 5th intercostal space mid clavicular line, normal S1 and S2, no murmurs, gallops, or rubs. CHEST: Normal respiratory efforts, lungs clear to auscultation bilaterally. ABDOMEN: Soft, no tenderness, rigidity, or masses. No palpable liver or spleen. Normal bowel sounds, no bruits. NEURO: intact cranial nerves II through XII, no motor or sensory deficits in all 4 extremities. EXTREMITIES: No cyanosis, clubbing, or edema. Peripheral pulses well felt. CARDIAC (& OTHER IMPORTANT) TESTING: The following testing reports were reviewed from the reports only: Data pending from [facility]. Pacemaker check 12/18/15: Interpretation Pacemaker Interpretation Dual lead pacemaker evaluation done 12/18/15. Underlying rhythm is sinus rhythm. New pt transferring from [facility]. Implanted for syncope (rate drop). Follow up 6 months. Sherine Henley RN Note to providers: Detailed device, lead, measured, programmed and threshold data is available in the CARD flowsheets. Devices & Leads ICD & PM & ILR Devices & Leads Component Value PM-Device Mfg MDT Model ADDR01 Adapta Serial Number [id number] Implant Date 02/06/2009 Implanted By Lead1 Mfg Medtronic Model 4076 CapsureFix Novus Location RA Implant Date 02/06/2009 Lead2 Mfg Medtronic Model 4076 CapsureFix Novus Location RV Implant LABS: Cholesterol, Total (mg/dL) Date Value 03/09/2022 141 05/22/2021 114 HDL Cholesterol (mg/dL) Date Value 03/09/2022 32 05/22/2021 35 LDL Cholesterol (mg/dL) Date Value 03/09/2022 62 05/22/2021 48 Triglyceride (mg/dL) Date Value 03/09/2022 237 05/22/2021 155 ASSESSMENT/PLAN: Pacemaker No follow-up in over 3 years last visit but better now 01/2009 for syncope (?vasovagal? on CARLYLE) Dr. Caballero Last pacer check 07/2022 suggest KYRIE in 16 months Coronary artery disease involving lytton coronary artery of lytton heart without angina pectoris HI 2013 due to consuming massive quantities of Red Bull, 2013 [facility] normal coronaries RENETTA on CPAP Syncope, unspecified syncope type Status post pacemaker implant See above No recurrence Controlled type 2 diabetes mellitus without complication, without long-term current use of insulin uncontrolled - Continue current medications - Encouraged regular aerobic exercise and weight loss - Daily Asprin therapy recommended - BP goal of <130/80 - LDL goal of <55 Fatty infiltration of liver Obesity, Class III, BMI 40-49.9 (morbid obesity) Malignant neoplasm of left kidney, except renal pelvis 5.2 x 3.4 cm, left renal mass, clear cell renal cell carcinoma grade 2/4, stage [id number], negative 3 lymph node dissection S/p nephrectomy I reviewed the secondary prevention program again in great detail with reference to risks, benefits, personal goals and mechanics. He is doing better since last visit with better PPM follow up and last visit with 16 month estimateof KYRIE. We reviewed heart healthy lifestyle changes with him as well. He will need to be more engaged in his healthcare in light of his significant risk factors. We reviewed exercise recommendations in greatdetail as well as weight loss and compliance with follow-up/Recommendations. His risk factors are controlled other than he needs to work harder with his diabetes. I will continue to follow him periodically. Thank you for allowing me the privilege of participating in the care of your patient. Please do nothesitate to contact me if there are any questions. Margie Smith DO, FACC, FCCP, FACOI CC: Hiram Sykes MD [facility] [place] [address] documented in this encounterMiami Valley Hospital08-04-2023 Miscellaneous Notes* Telephone Encounter - Hiram Sykes MD - 12/13/2022 7:48 AM EDT Endocrinology consult Diabetes: Continue metformin 500 mg twice daily Start Ozempic Continue glimepiride 4 mg twice a day Start Basaglar 15 units once daily Follow-up in 8 weeks Hemoglobin A1c 9.5% * Telephone Encounter - Mirna Woodson Ma - 12/12/2022 4:20 PM EDT Received patient's Office Visit re: diabetes (dos: 12/11/22) from [facility] placedin provider's in box to be for reviewed & signed with providers approval to be sent to scanning. Mirna Brooks) documented in this encounterMiami Valley Hospital07-21-2023 NoteHNO ID: [id number] Author: Stevenson Arizmendi [facility]: ? Author Type: Pharmacist Type: Progress Notes Filed: 11/29/2022 9:19 AM Note Text: Primary Care Pharmacy Visit CC (Reason for Consult): (E11.65) Uncontrolled type 2 diabetes mellitus with hyperglycemia (HCC) (primary encounter diagnosis) Goal: A1c < 7% Last Collaborating Provider Visit: 06/11/22 Margie Haynes is a 47 year old male presenting for follow up visit by telephone. Patient consents to pharmacy collaborative practice agreement. . Interim Events: 07/16: metformin stopped due to GI issues, Trulicity increased 08/20: pt reported he had restarted metformin; Trulicity further increased 09/18: pt reported significant GI issues with increased Trulicity so med stopped; metformin titration encouraged as tolerated 10/18- Trulicity restarted at 0.75mg dose HPI: FBGs 250-300s and not checking in the afternoon GI side effects are in a good place. Cut back on portions of meals and is walking more at work. Still looking to lose more weight, especially in his waste. Patient is adherent and tolerating current regimen. Current DM Medications: Trulicity 0.75mg once weekly- Saturdays Metformin ER 500mg twice daily Glimepiride 4mg twice daily Past medical history reviewed. ALLERGIES Allergen Reactions Amoxicillin Unknown Rash at 3 years of age. Has tolerated augmentin in the past. Metformin GI Upset Current Outpatient Medications Medication Sig Dispense Refill metFORMIN ER (GLUCOPHAGE XR) 500 mg 24 hr tablet Take 1 tablet by mouth twice daily with meals. May gradually increase up to 4 tablets daily as tolerated. 180 tablet 3 diphenoxylate-atropine (LOMOTIL) 2.5-0.025 mg per tablet Take 1 tablet by mouth four times daily as needed for diarrhea for up to 30 days. 10 tablet 0 ONETOUCH ULTRA TEST test strip USE TO CHECK BLOOD SUGARS TWICE DAILY OR DIRECTED. 100 Strip 1 lancets (ONE TOUCH DELInnoVital Systems) 33 gauge USE TO CHECK BLOOD SUGARS TWICE DAILY OR DIRECTED. 100 Each 1 glimepiride (AMARYL) 4 mg tablet Take 1 tablet by mouth twice daily with meals. 180 tablet 3 atorvastatin (LIPITOR) 20 mg tablet Take 1 tablet by mouth once daily. 90 tablet 3 lisinopril (ZESTRIL, PRINIVIL) 10 mg tablet Take 1 tablet by mouth once daily. 90 tablet 3 Blood-Glucose Meter (WatchwithUCH ULTRAMINI) monitoring kit Use to check blood sugars twice daily or as directed. 1 Each 0 CPAP BiPAP supplies including large mask, tubing and headgear for BiPAP Auto Remstar F10 machine 1 Device 0 aspirin, enteric coated (ECOTRIN LOW STRENGTH) 81 mg EC tablet Take 1 tablet by mouth once daily. 0 cetirizine (ZYRTEC) 10 mg tablet Take 1 tablet by mouth once daily. 0 No current facility-administered medications for this visit. EXAM: There were no vitals taken for this visit. Last 3 Encounter BP Readings: Date: BP: 07/15/2022 110/78 06/07/2022 112/72 03/05/2022 118/76 Wt: 120.7 kg (266 lb) BMI: 40.45 kg/(m2) LABS: Lab Results Component Value Date HBA1C 10.5 06/08/2022 HBA1C 11.0 03/09/2022 HBA1C 13.0 05/22/2021 HBA1C 8.9 11/06/2019 HBA1C 12.0 06/22/2019 HBA1C 11.8 02/16/2019 HBA1C 10.8 11/21/2018 Glucose 219 06/08/2022 BUN 15 06/08/2022 Creatinine 0.91 06/08/2022 Sodium 137 06/08/2022 Potassium 4.6 06/08/2022 Chloride 104 06/08/2022 CO2 22 06/08/2022 Protein, Total 7.3 03/09/2022 Albumin 4.4 03/09/2022 Calcium 9.7 06/08/2022 Alkaline Phosphatase 53 03/09/2022 Bilirubin, Total 0.5 03/09/2022 AST 20 03/09/2022 ALT 28 03/09/2022 Lab Results Component Value Date CHOL 141 03/09/2022 CHOL 114 05/22/2021 LDL 62 03/09/2022 LDL 48 05/22/2021 HDL 32 03/09/2022 HDL 35 05/22/2021 TG 237 03/09/2022 TG 155 05/22/2021 Albumin/Creat Ratio (mg/g) Date Value 06/08/2022 25 eGFR-All Other Races (.) Date Value 05/22/2021 >60 Estimated Glomerular Filtration Rate (mL/min/1.73m?) Date Value 06/08/2022 103 PHARMACOTHERAPY ASSESSMENT/PLAN: 1. Uncontrolled type 2 diabetes mellitus with hyperglycemia (HCC) - ICD9: 250.02, ICD10: E11.65 - Uncontrolled. Patient reported FBGs have improved but are still significantly elevated. GI side effects have subsided on Trulicity 0.75mg dose. Look to optimize Trulicity regimen. Advised patient to cut back on carbohydrates foods and reduce portion sizes. I suspect the patient will require insulin treatment in the future. F/up after updated A1C. - Increase dulaglutide (Trulicity) to 1.5mg once weekly - Blood glucose monitoring on a once daily schedule - Referral to Endocrinology for further diabetes management. Provided patient with phone number to schedule with [facility] as previously discussed with PharmD. - Counseled on healthy diet and regular exercise - DULAGLUTIDE 1.5 MG/0.5 ML SUBCUTANEOUS PEN INJECTOR - HGB A1C- PharmD to f/up after A1C results. The majority of the pharmacy visit (> 50%) was spent counseling and/or coordinating care for the p (more content not included)...[facility]06-09-2023 NoteHNO ID: [id number] Author: Enmanuel Masters [facility]: ? Author Type: Pharmacist Type: Progress Notes Filed: 10/18/2022 9:30 AM Note Text: Primary Care Pharmacy Visit CC (Reason for Consult): Diabetes Goal: A1c < 7% Last Collaborating Provider Visit: 06/11/22 Margie Haynes is a 47 year old male presenting for follow up visit by telephone. Patient consents to pharmacy collaborative practice agreement. Interim Events: 07/16: metformin stopped due to GI issues, Trulicity increased 08/20: pt reported he had restarted metformin; Trulicity further increased 09/18: pt reported significant GI issues with increased Trulicity so med stopped; metformin titration encouraged as tolerated HPI: No questions today. Feels sugars are going up. No GI issues except for this weekend when changed drinking water sources. Nothing medication-related. Waking up once nightly to pee now, didn't used to get up in middle of night. Feels sugars have really gone up since stopping Trulicity. states demeanor is worse, energy is worse. Patient eating better though sugars still up. Willing to restart Trulicity, wants script [facility] [place]. Leaving to go out of state on Friday for 1 week for a training in [place]. Does have initial visit with Dr. Roland Clayton, on December 11. Current DM Medications: Metformin ER 500mg BID, may increase up to 4 tabs/day as tolerated (taking 1 tab BID, didn't try titrating the dose, did not tolerate higher doses in past) Glimepiride 4mg BID GLYCEMIC CONTROL: Glucometer present at visit: No SMBG?s: reports FBGs ranging around 300s, during the day usually in the 160s-170s Hypoglycemia: none Preventative Medications: On LIYA/ARB: Yes On Statin: Yes DIET/EXERCISE/SOCIAL Hx: and feels he is eating better Dinner: usually meat and veggies; last night had hamburger (with bun) and 2 corn cobs, mushrooms; water and diet soda; ate around 6:30 PM Snacks: couple pieces pineapple last night MEDICATIONS: Pill bottles are not present. Adherence: denies missed doses. Pharmacy: [facility] [place] [place] [address] [phone] [facility] [phone] Rx coverage: Payor: MMO / Plan: MMO SUPERMED PPO / Product Type: PPO / Medications affordable? Yes Diabetes Supplies: Yes ACTIVE PROBLEM LIST History of Pacemaker Renetta On Cpap Fatty Infiltration of Liver Uncontrolled Type 2 Diabetes Mellitus With Hyperglycemia (Hcc) H/O Atrial Fibrillation Without Current Medication Microscopic Hematuria Malignant Neoplasm of Left Kidney, Except Renal Pelvis (Hcc) S/P Nephrectomy Obesity, Class Iii, Bmi 40-49.9 (Morbid Obesity) (Hcc) Coronary Artery Disease Involving [place] Coronary Artery of [place] Heart Without Angina Pectoris Low Testosterone in Male PAST MEDICAL HISTORY Diagnosis Date Atrial fibrillation (HCC) Controlled type 2 diabetes mellitus without complication, without long-term current use of insulin (HCC) 12/08/2015 Coronary artery disease 2014 hx HI 2013 History of pacemaker 2009 a fib Left kidney mass HI (myocardial infarction) (HCC) 2013 Nephrolithiasis 1996 passed spontaneously RENETTA on CPAP Renal cancer (HCC) 11/20/15 left, pending surgery Past medical history reviewed. ALLERGIES Allergen Reactions Amoxicillin Unknown Rash at 3 years of age. Has tolerated augmentin in the past. Metformin GI Upset Medication List Medication Directions Comments Action/Plan aspirin, enteric coated (ECOTRIN LOW STRENGTH) 81 mg EC tablet Take 1 tablet by mouth once daily. atorvastatin (LIPITOR) 20 mg tablet Take 1 tablet by mouth once daily. Blood-Glucose Meter ([employer] ULTRAMINI) monitoring kit Use to check blood sugars twice daily or as directed. cetirizine (ZYRTEC) 10 mg tablet Take 1 tablet by mouth once daily. CPAP BiPAP supplies including large mask, tubing and headgear for BiPAP Auto Remstar F10 machine diphenoxylate-atropine (LOMOTIL) 2.5-0.025 mg per tablet Take 1 tablet by mouth four times daily as needed for diarrhea for up to 30 days. glimepiride (AMARYL) 4 mg tablet Take 1 tablet by mouth twice daily with meals. lancets (ONE TOUCH DELICA) 33 gauge USE TO CHECK BLOOD SUGARS TWICE DAILY OR DIRECTED. lisinopril (ZESTRIL, PRINIVIL) 10 mg tablet Take 1 tablet by mouth once daily. metFORMIN ER (GLUCOPHAGE XR) 500 mg 24 hr tablet Take 1 tablet by mouth twice daily with meals. May gradually increase up to 4 tablets daily as tolerated. [employer] ULTRA TEST test strip USE TO CHECK BLOOD SUGARS TWICE DAILY OR DIRECTED. Exam: Last 3 Encounter BP Readings: Date: BP: 07/15/2022 110/78 06/07/2022 112/72 03/05/2022 118/76 Wt: 120.7 kg (266 lb) BMI: 40.45 kg/(m2) LABS: Reviewed Lab Results Component Value Date HBA1C 10.5 06/08/2022 HBA1C 11.0 03/09/2022 HBA1C 13.0 05/22/2021 HBA1C 8.9 11/06/2019 HBA1C 12.0 06/22/2019 HBA1C 11.8 02/16/2019 HBA1C 10.8 11/21/2018 CMP: (more content not included)...[facility]05-10-2023 NoteHNO ID: [id number] Author: Enmanuel Masters [facility]: ? Author Type: Pharmacist Type: Progress Notes Filed: 09/18/2022 2:32 PM Note Text: Primary Care Pharmacy Visit CC (Reason for Consult): Diabetes Goal: A1c < 7% Collaborating Provider: Dr. Sykes Last Provider Visit: 06/11/22 Margie Haynes is a 47 year old male presenting for follow up visit by telephone. Patient consents to pharmacy collaborative practice agreement. Patient is presenting today for f/up pharmacotherapy management appointment for diabetes. At PharmD visit on 07/16, metformin was stopped due to GI issues and Trulicity increased. At last PharmD visit on 08/20, patient reported he had restarted metformin and Trulicity was increased. Patient later contact PharmD reporting terrible GI ADEs with dose increase so patient advised to hold next Trulicity dose until f/up today. 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 3-way call attempted with . Per : [place] did help patient with his GI ADEs from Trulicity. No longer using. He did not take his Trulicity since week prior. He did restart metformin 500mg once daily, has been on less than 1 week and thus far tolerating well. No changes to diet. Per patient: So far doing well with metformin. Just increased to 2 tablets daily yesterday, no issues lately. He does feel that sugars are slightly higher, maybe 20 points or so. Feels he is losing weight. Energy level is pretty good. Patient interested in discussing Lambert. Current DM Medications: Glimepiride 4mg BID (not taking) Taking metformin 500mg ER 1 tablet BID Past DM medications: Metformin IR and ER - GI upset Januvia - stopped when switched to Ozempic GLYCEMIC CONTROL: Glucometer present at visit: No SMBG?s: FBG today was just shy of 250; says it is always high in the morning; one day it was 150 mg/dL when he was sick and wasn't eating much Hypoglycemia: none Preventative Medications: On LIYA/ARB: Yes On Statin: Yes ROS: Patient denies CP, SOB, REHMAN, blurred vision, dizziness or lightheadedness Patient denies symptoms of hypoglycemia (sweating, anxiety, palpitations, hunger, and tremor) Patient denies symptoms of hyperglycemia (polyuria, polydipsia, polyphagia) Patient denies potential medication adverse effects DIET/EXERCISE/SOCIAL Hx: Trying to eat less portion sizes MEDICATIONS: Pill bottles are not present Adherence: denies missed doses Pharmacy: [facility] Rx coverage: [facility] [place]; has a $5000 deductible; started new job but benefits don't start for 90 days Affordability: [employer] Organization System: none ACTIVE PROBLEM LIST History of Pacemaker Renetta On Cpap Fatty Infiltration of Liver Uncontrolled Type 2 Diabetes Mellitus With Hyperglycemia (Hcc) H/O Atrial Fibrillation Without Current Medication Microscopic Hematuria Malignant Neoplasm of Left Kidney, Except Renal Pelvis (Hcc) S/P Nephrectomy Obesity, Class Iii, Bmi 40-49.9 (Morbid Obesity) ([facility]) Coronary Artery Disease Involving [place] Coronary Artery of [place] Heart Without Angina Pectoris Low Testosterone in Male PAST MEDICAL HISTORY Diagnosis Date Atrial fibrillation (HCC) Controlled type 2 diabetes mellitus without complication, without long-term current use of insulin ([facility]) 12/08/2015 Coronary artery disease 2013 hx HI 2013 History of pacemaker 2009 a fib Left kidney mass HI (myocardial infarction) ([facility]) 2013 Nephrolithiasis 1996 passed spontaneously RENETTA on CPAP Renal cancer (HCC) 11/20/15 left, pending surgery ALLERGIES Allergen Reactions Amoxicillin Unknown Rash at 3 years of age. Has tolerated augmentin in the past. Metformin GI Upset Medication List Medication Directions Comments Action/Plan aspirin, enteric coated (ECOTRIN LOW STRENGTH) 81 mg EC tablet Take 1 tablet by mouth once daily. atorvastatin (LIPITOR) 20 mg tablet Take 1 tablet by mouth once daily. Blood-Glucose Meter (PixstaTOUCH ULTRAMINI) monitoring kit Use to check blood sugars twice daily or as directed. cetirizine (ZYRTEC) 10 mg tablet Take 1 tablet by mouth once daily. CPAP BiPAP supplies including large mask, tubing and headgear for BiPAP Auto Remstar F10 machine diphenoxylate-atropine (LOMOTIL) 2.5-0.025 mg per tablet Take 1 tablet by mouth four times daily as needed for diarrhea for up to 30 days. dulaglutide (TRULICITY) 3 mg/0.5 mL pen injector Inject 3 mg subcutaneously one time a week. glimepiride (AMARYL) 4 mg tablet Take 1 tablet by mouth twice daily with meals. lancets (ONE TOUCH DELICA) 33 gauge USE TO CHECK BLOOD SUGARS TWICE DAILY OR DIRECTED. lisinopril (ZESTRIL, PRINIVIL) 10 mg tablet Take 1 tablet by mouth once daily. metFORMIN ER (GLUCOPHAGE XR) 500 mg 24 hr tablet Take 1 tablet by mouth once daily. ONETOUCH ULTRA TEST test strip USE TO CHECK BLOOD SUGARS TWICE DAILY OR DIRECTED. Objective: Exam: Last 3 Encount (more content not included)...[facility] 09-18-2022 History of Present illness Narrative* Enmanuel Masters, [facility] - 09/18/2022 1:30 PM EDT Primary Care Pharmacy Visit CC (Reason for Consult): Diabetes Goal: A1c < 7% Collaborating Provider: Dr. Sykes Last Provider Visit: 06/11/22 Margie Haynes is a 47 year old male presenting for follow up visit by telephone. Patient consents to pharmacy collaborative practice agreement. Patient is presenting today for f/up pharmacotherapy management appointment for diabetes. At PharmDvisit on 07/16, metformin was stopped due to GI issues and Trulicity increased. At last PharmD visit on 08/20, patient reported he had restarted metformin and Trulicity was increased. Patient later contact PharmD reporting terrible GI ADEs with dose increase so patient advised to hold next Trulicity dose until f/up today. 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 3-way call attempted with . Per : Lomotil did help patient with his GI ADEs from Trulicity. No longer using. He did not take his Trulicity since week prior. He did restart metformin 500mg once daily, has been on less than 1 week and thus far tolerating well. No changes to diet. Per patient: So far doing well with metformin. Just increased to 2 tablets daily yesterday, no issues lately. [place] feel that sugars are slightly higher, maybe 20 points or so. Feels he is losing weight. Energylevel is pretty good. Patient interested in discussing Mounjaro. Current DM Medications: Glimepiride 4mg BID (not taking) Taking metformin 500mg ER 1 tablet BID Past DM medications: Metformin IR and ER - GI upset Januvia - stopped when switched to Ozempic GLYCEMIC CONTROL: Glucometer present at visit: No SMBG s: FBG today was just shy of 250; says it is always high in the morning; one day it was 150 mg/dL when he was sick and wasn't eating much Hypoglycemia: none Preventative Medications: On LIYA/ARB: Yes On Statin: Yes ROS: Patient denies CP, SOB, REHMAN, blurred vision, dizziness or lightheadedness Patient denies symptoms of hypoglycemia (sweating, anxiety, palpitations, hunger, and tremor) Patient denies symptoms of hyperglycemia (polyuria, polydipsia, polyphagia) Patient denies potential medication adverse effects DIET/EXERCISE/SOCIAL Hx: Trying to eat less portion sizes MEDICATIONS: Pill bottles are not present Adherence: denies missed doses Pharmacy: [facility] Rx coverage: [facility] [place]; has a $5000 deductible; started new job but benefits don't start for 90 days Affordability: Ozempic too expensive Organization System: none ACTIVE PROBLEM LIST History of Pacemaker Renetta On Cpap Fatty Infiltration of Liver Uncontrolled Type 2 Diabetes Mellitus With Hyperglycemia (Hcc) H/O Atrial Fibrillation Without Current Medication Microscopic Hematuria Malignant Neoplasm of Left Kidney, Except Renal Pelvis (Hcc) S/P Nephrectomy Obesity, Class Iii, Bmi 40-49.9 (Morbid Obesity) (Hcc) Coronary Artery Disease Involving [place] Coronary Artery of [place] Heart Without Angina Pectoris Low Testosterone in Male PAST MEDICAL HISTORY Diagnosis Date Atrial fibrillation (HCC) Controlled type 2 diabetes mellitus without complication, without long-term current use of insulin (HCC) 12/08/2015 Coronary artery disease 2013 hx HI 2013 History of pacemaker 2008 a fib Left kidney mass HI (myocardial infarction) (HCC) 2013 Nephrolithiasis 1996 passed spontaneously RENETTA on CPAP Renal cancer (HCC) 11/20/15 left, pending surgery ALLERGIES Allergen Reactions Amoxicillin Unknown Rash at 3 years of age. Has tolerated augmentin in the past. Metformin GI Upset Medication List Medication Directions Comments Action/Plan aspirin, enteric coated (ECOTRIN LOW STRENGTH) 81 mg EC tablet Take 1 tablet by mouth once daily. atorvastatin (LIPITOR) 20 mg tablet Take 1 tablet by mouth once daily. Blood-Glucose Meter (PixstaTOUCH ULTRAMINI) monitoring kit Use to check blood sugars twice daily or asdirected. cetirizine (ZYRTEC) 10 mg tablet Take 1 tablet by mouth once daily. CPAP BiPAP supplies including large mask, tubing and headgear for BiPAP Auto Remstar F10 machine diphenoxylate-atropine (LOMOTIL) 2.5-0.025 mg per tablet Take 1 tablet by mouth four times daily asneeded for diarrhea for up to 30 days. dulaglutide (TRULICITY) 3 mg/0.5 mL pen injector Inject 3 mg subcutaneously one time a week. glimepiride (AMARYL) 4 mg tablet Take 1 tablet by mouth twice daily with meals. lancets (ONE TOUCH DELInnoVital Systems) 33 gauge USE TO CHECK BLOOD SUGARS TWICE DAILY OR DIRECTED. lisinopril (ZESTRIL, PRINIVIL) 10 mg tablet Take 1 tablet by mouth once daily. metFORMIN ER (GLUCOPHAGE XR) 500 mg 24 hr tablet Take 1 tablet by mouth once daily. [employer] ULTRA TEST test strip USE TO CHECK BLOOD SUGARS TWICE DAILY OR DIRECTED. Objective: Exam: Last 3 Encounter BP Readings: Date: BP: 07/15/2022 110/78 06/07/2022 112/72 03/05/2022 118/76 Wt: 120.7 kg (266 lb) BMI: 40.45 kg/(m^2) LABS: Reviewed Lab Results Component Value Date HBA1C 10.5 06/08/2022 HBA1C 11.0 03/09/2022 HBA1C 13.0 05/22/2021 HBA1C 8.9 11/06/2019 HBA1C 12.0 06/22/2019 HBA1C 11.8 02/16/2019 HBA1C 10.8 11/21/2018 CMP: Glucose 219 06/08/2022 BUN 15 06/08/2022 Creatinine 0.91 06/08/2022 Sodium 137 06/08/2022 Potassium 4.6 06/08/2022 Chloride 104 06/08/2022 CO2 22 06/08/2022 Protein, Total 7.3 03/09/2022 Albumin 4.4 03/09/2022 Calcium 9.7 06/08/2022 Alkaline Phosphatase 53 03/09/2022 Bilirubin, Total 0.5 03/09/2022 AST 20 03/09/2022 ALT 28 03/09/2022 Estimated Creatinine Clearance: 124 mL/min (based on SCr of 0.91 mg/dL). Lab Results Component Value Date CHOL 141 03/09/2022 CHOL 114 05/22/2021 LDL 62 03/09/2022 LDL 48 05/22/2021 HDL 32 03/09/2022 HDL 35 05/22/2021 TG 237 03/09/2022 TG 155 05/22/2021 The 10-year ASCVD risk score (Nkechi REYES, et al., 2019) is: 4.5% Values used to calculate the score: Age: 47 years Sex: Male Is Non- : No Diabetic: Yes Tobacco smoker: No Systolic Blood Pressure: 110 mmHg Is BP treated: No HDL Cholesterol: 32 mg/dL Total Cholesterol: 141 mg/dL Albumin/Creat Ratio (mg/g) Date Value 06/08/2022 25 PHARMACOTHERAPY ASSESSMENT/PLAN: 1. Uncontrolled type 2 diabetes mellitus with hyperglycemia (HCC) - ICD9: 250.02, ICD10: E11.65 A1c goal < 7%; uncontrolled (last A1c 10.5%); reported SMBGs elevated above goal; no sx of highsor lows; feeling much better after being off Trulicity x ~1.5 weeks; patient self-started metforminsince off Trulicity, on 2 tabs daily and thus far tolerating well; patient interested in Lambert -PharmD discussed how no CV data out yet to confirm CV/mortality benefit and since pt has established ASCVD would prefer to stick with Trulicity given evidence; no med changes today but patient agreeable to restart Trulicity at future visit if still feeling well (will NOT increase dose past 1.5mg infuture given recent ADRs); renal fxn and LFTs sufficient for use CONTINUE metformin ER 500mg daily with meals. Encouraged to gradually increase up to 4 tablets daily as patient is comfortable. CONTINUE glimepiride 4mg BID Discussed CGM, not interested at this time HbA1c: due now, lab ordered Follow-up Patient is not scheduled to see PCP team. Patient to have f/up with PharmD team on 10/18. Patient verbalized understanding of instructions. Enmanuel Masters PharmD, [facility] Primary Care Clinical Pharmacist The majority of the pharmacy visit (> 50%) was spent counseling and/or coordinating care for thepatient. interaction: telephonic time was 25 minutes. [facility]23 Miscellaneous Notes* Telephone Encounter - Andree Gifford RN - 09/11/2022 11:19 AM EDT Notified vis identified VM. Andree Gifford RN * Telephone Encounter - Hiram Sykes MD - 09/11/2022 11:09 AM EDT Prescription for Lomotil has been sent in Please inform patient * Telephone Encounter - Andree Gifford RN - 09/11/2022 10:55 AM EDT Triaged patient via . Last dose of Trulicity was last . See Pharm message below from 09/04 Advised that if he still have GI issues after the 2nd dose this week, then he should wait to administer next week's dose until Friday evening after his niece's wedding to avoid possibly missing the event due to ADEs. He is leaving Friday morning for wedding- has [address] ride. Symptoms are still severe-diarrhea all day long. Not nauseas, but when he eats anything substantialhe vomits-feels like his stomach is twisted. Drinking very well, staying hydrated. Denies s/s of dehydration. Has tried Pepto and Tums-ineffective. Eating Activia yogurt daily. Asking for recommendations to control symptoms for wedding and trip. Will try imodium. Asking for Lomotil script as well in case imodium does not work. Also states he will not go back on Trulicity. Andree Gifford RN Reason for Disposition [1] Caller has NON-URGENT medicine question about med that PCP prescribed AND [2] triager unable toanswer question Protocols used: Medication Question [id number] * Telephone Encounter - Hannah Roa - 09/11/2022 10:31 AM EDT Keshia is calling on behalf of Dennis. His Trulicity dosage was change a few weeks ago and he is having side effects including diarrhea, vomiting, and gas/bloating. This is affecting his ability to work and is concerned as they have a family wedding this weekend and he recently took the injection and is now home with above symptoms. Please contact at [phone] with assistance on how to handle the side effects. documented in this encounterMi[facility]04-26-2023 Miscellaneous Notes* Telephone Encounter - Enmanuel Masters, [facility] - 09/04/2022 12:34 PM EDT Patient's , Keshia, called PharmD and LMOM stating she thinks patient may be having an adversereaction to the dose increase of Trulicity, is requesting a return call at [phone]. PharmD returned call to Keshia. States this past patient started the Trulicity 3mg dose. Not feeling great over the weekend. Said he had a low BG attack of 111 while working in the yard -treated and BG corrected. Said he didn't feel right afterwards, slept the rest of the day. Did havesome increased burping and stomach upset. Yesterday did have some diarrhea, vomited. Denies sharp stabbing abdominal pain, did have feeling of bloating. He barely ate yesterday. Today feeling fine but sluggish, no diarrhea or vomiting. Niece is getting next weekend, September 14, doesn't want him being sick for the wedding. wondering if this is all caused by Trulicity and what to do. PharmD discussed with that GI sx are common with Trulicity dose adjustments. Advised he continue taking the higher dose this week. Encouraged to avoid fried, greasy, fatty foods or over-eating. Discussed his low BG was not truly low but he body was not used to it. Advised to correct feelingsof lows with the Rule of 15 though he should start to tolerate the lower readings better as his body adjusts to lower readings. Did advised patient to reduce glimepiride by 1 tab if feelings of lows persist. Advised that if he still have GI issues after the 2nd dose this week, then he should wait to administer next week's dose until Friday evening after his niece's wedding to avoid possibly missing the event due to ADEs. Discussed the uncommon but potential issues with gall bladder problems and/or pancreatitis with Trulicity. Advised to contact PCP office if notices sharp, stabbing abdominal pain (particularly in theepigastric region), etc. appreciated the call. Enmanuel Masters, Clarice, [facility] Primary Care Clinical Pharmacist documented [facility] History of Present illness Narrative* Matthew Lieberman RPh - 08/20/2022 1:00 PM EDT Primary Care Pharmacy Visit CC (Reason for Consult): Diabetes Goal: A1c < 7% Collaborating Provider: Dr. Sykes Last Provider Visit: 06/11/22 Margie Haynes is a 47 year old male presenting for follow up visit by telephone. Patient consents to pharmacy collaborative practice agreement. Patient is presenting today for f/up pharmacotherapy management appointment for diabetes. At PharmDvisit on 03/12, patient indicated Ozempic was too expensive but was getting new insurance in 90days and was hopeful copay would be cheaper. Metformin was started and dietary modifications encouraged. 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 At PharmD visit on 05/21, patient seemed agreeable to starting insulin but preferred he meet with Dr. Watkins (senior web services developer) prior to starting insulin. Trulicity was started, metformin decreased for GI ADEs, and dietary modifications encouraged. At last PCP appt, no med changes made but patient reported improved BG control since starting Trulicity and c utting back on soda. At last PharmD visit on 07/16, metformin was stopped due to GI issues and Trulicity increased. Subjective: HPI: Patient's , Keshia, present at phone visit. Patient states that he is doing well today. Comes to the appointment with concerned regarding cost of Trulicity -- states that at the beginning of this year, the Trulicity cost $25 for a 30 day supply. States that they last two times it has been picked up that it cost them $760 for a 30 days supply. Wondering if there is anything that can be done to reduce this cost. Patient reports that their glucose has been running a bit higher since their last visit, that in the morning it is typically 200-250 and later in the afternoon, some hours after eating, it is typically 120-140s. Denies late night snacking, but does state that occasionally he drinks a glass of wholemilk prior to bed. States that regardless of whether he has milk or water prior to bed that it is high in the morning. States that not much is different from what he was doing at last visit, but his blood sugars are worst now. states that he may have been guessing what his sugar levels were atlast PharmD visit on 07/16. States that recently his blood sugar went down to 97, and that at this value he experienced some signs of hypoglycemia and he felt awful. Also states he recently found out that he has a family history of diabetes, and those who have it in his family have it bad. Reports no missed doses of his medications and states that he is able to use metformin XR 500 mg, 1tablet in the morning. Reports no N/V/D. Denies CP, SOB, dizziness/lightheadedness, polyuria or polydipsia. Denies any other side-effects from his medications. Current DM Medications: Glimepiride 4mg BID Dulaglutide (Trulicity) 1.5mg weekly on States he is using metformin 500 mg XR once daily in the morning with no issue Past DM medications: Metformin IR and ER - GI upset Januvia - stopped when switched to Ozempic GLYCEMIC CONTROL: Glucometer present at visit: No SMBG s: Reported Bgs 200 - 250 in the morning, 120 -140 later in the afternoon. Hypoglycemia: States he felt s/sx of hypoglycemia at a blood sugar level of 97 How corrected: Ate fries from [employer] Preventative Medications: On LIYA/ARB: Yes On Statin: Yes ROS: Patient denies CP, SOB, REHMAN, blurred vision, dizziness or lightheadedness Patient denies symptoms of hypoglycemia (sweating, anxiety, palpitations, hunger, and tremor) Patient denies symptoms of hyperglycemia (polyuria, polydipsia, polyphagia) Patient denies potential medication adverse effects DIET/EXERCISE/SOCIAL Hx: Denies late night snacking, just the occasional glass of whole milk in the evening that he states does not affect his blood sugars. Breakfast: Cheerios with whole milk Lunch: today, had ham with mashed potatoes -- [facility] overs from [facility]. Typically a PB&J or a sandwich with deli meat Dinner: Fish/steak/pork with potatoes and vegetables Snacks: Yogurt, canned fruit (in juice), pretzels Beverages: 1 diet soda 3x/week Exercise: Not much exercise MEDICATIONS: Pill bottles are not present Adherence: denies missed doses Pharmacy: [facility] Rx coverage: [facility] [place]; has a $5000 deductible; started new job but benefits don't start for 90 days Affordability: [employer] too expensive Organization System: none ACTIVE PROBLEM LIST History of Pacemaker Renetta On Cpap Fatty Infiltration of Liver Uncontrolled Type 2 Diabetes Mellitus With Hyperglycemia (Hcc) H/O Atrial Fibrillation Without Current Medication Microscopic Hematuria Malignant Neoplasm of Left Kidney, Except Renal Pelvis (Hcc) S/P Nephrectomy Obesity, Class Iii, Bmi 40-49.9 (Morbid Obesity) (Hcc) Coronary Artery Disease Involving [place] Coronary Artery of [place] Heart Without Angina Pectoris Low Testosterone in Male PAST MEDICAL HISTORY Diagnosis Date Atrial fibrillation (HCC) Controlled type 2 diabetes mellitus without complication, without long-term current use of insulin (HCC) 12/08/2015 Coronary artery disease 2014 hx HI 2013 History of pacemaker 2009 a fib Left kidney mass HI (myocardial infarction) (HCC) 2013 Nephrolithiasis 1996 passed spontaneously RENETTA on CPAP Renal cancer (HCC) 11/20/15 left, pending surgery Past medical, family and social history reviewed and updated. ALLERGIES Allergen Reactions Amoxicillin Unknown Rash at 3 years of age. Has tolerated augmentin in the past. Metformin GI Upset Medication List Medication Directions Comments Action/Plan aspirin, enteric coated (ECOTRIN LOW STRENGTH) 81 mg EC tablet Take 1 tablet by mouth once daily. atorvastatin (LIPITOR) 20 mg tablet Take 1 tablet by mouth once daily. Blood-Glucose Meter (PixstaTOUCH ULTRAMINI) monitoring kit Use to check blood sugars twice daily or asdirected. cetirizine (ZYRTEC) 10 mg tablet Take 1 tablet by mouth once daily. CPAP BiPAP supplies including large mask, tubing and headgear for BiPAP Auto Remstar F10 machine dulaglutide (TRULICITY) 1.5 mg/0.5 mL pen injector Inject 1.5 mg subcutaneously one time a week. glimepiride (AMARYL) 4 mg tablet Take 1 tablet by mouth twice daily with meals. lancets (ONE TOUCH DELICA) 33 gauge USE TO CHECK BLOOD SUGARS TWICE DAILY OR DIRECTED. lisinopril (ZESTRIL, PRINIVIL) 10 mg tablet Take 1 tablet by mouth once daily. [employer] ULTRA TEST test strip USE TO CHECK BLOOD SUGARS TWICE DAILY OR DIRECTED. Rx meds not listed in EPIC: Metformin XR 500 mg once daily in the morning OTCs: None Herbals: None Objective: Exam: Last 3 Encounter BP Readings: Date: BP: 07/15/2022 110/78 06/07/2022 112/72 03/05/2022 118/76 Wt: 120.7 kg (266 lb) BMI: 40.45 kg/(m^2) LABS: Reviewed Lab Results Component Value Date HBA1C 10.5 06/08/2022 HBA1C 11.0 03/09/2022 HBA1C 13.0 05/22/2021 HBA1C 8.9 11/06/2019 HBA1C 12.0 06/22/2019 HBA1C 11.8 02/16/2019 HBA1C 10.8 11/21/2018 CMP: Glucose 219 06/08/2022 BUN 15 06/08/2022 Creatinine 0.91 06/08/2022 Sodium 137 06/08/2022 Potassium 4.6 06/08/2022 Chloride 104 06/08/2022 CO2 22 06/08/2022 Protein, Total 7.3 03/09/2022 Albumin 4.4 03/09/2022 Calcium 9.7 06/08/2022 Alkaline Phosphatase 53 03/09/2022 Bilirubin, Total 0.5 03/09/2022 AST 20 03/09/2022 ALT 28 03/09/2022 Estimated Creatinine Clearance: 124 mL/min (based on SCr of 0.91 mg/dL). Lab Results Component Value Date CHOL 141 03/09/2022 CHOL 114 05/22/2021 LDL 62 03/09/2022 LDL 48 05/22/2021 HDL 32 03/09/2022 HDL 35 05/22/2021 TG 237 03/09/2022 TG 155 05/22/2021 The 10-year ASCVD risk score (Nkechi REYES, et al., 2019) is: 4.5% Values used to calculate the score: Age: 47 years Sex: Male Is Non- : No Diabetic: Yes Tobacco smoker: No Systolic Blood Pressure: 110 mmHg Is BP treated: No HDL Cholesterol: 32 mg/dL Total Cholesterol: 141 mg/dL Albumin/Creat Ratio (mg/g) Date Value 06/08/2022 25 PHARMACOTHERAPY ASSESSMENT/PLAN: 1. Uncontrolled type 2 diabetes mellitus with hyperglycemia (HCC) - ICD9: 250.02, ICD10: E11.65 A1c goal < 7%; uncontrolled (last A1c 10.5%); SMBG above goal range on current regimen; States he experienced one event of hypoglycemia when his glucose level was 97; No s/sx hyperglycemia; Patient is currently using metformin XR 500 mg once daily and Trulicity 1.5 mg once weekly (this is week 5of increased dosage initiated at last PharmD visit. Patient's last A1C is > 10% and SMBG are above goal range, not improved since last visit. reports potentially inaccurate reporting of bloodsugar levels at last PharmD visit. Patient would benefit from increase in Trulicity. Renal fxn and LFT sufficient for use CONTINUE metformin XR 500 mg once daily in the morning. LFTs and renal fxn sufficient for use Patient reports no N/V/D currently on this dose of metformin. Will continue at this time. Re-added to medication list CONTINUE glimepiride 4 mg BID INCREASE Trulicity to 3 mg once weekly Due to patient concern of not being able to get Trulicity 3 mg pens from pharmacy since just pickedup 1.5 mg pens, instructed patient to use 1.5 mg pen this week, and begin using 3 mg once weekly starting next . Instructed to double up on 1.5 mg dose starting next week until patient picks up 3 mg pens. Sending new script for Trulicity 3 mg once weekly to [facility] in [place] Instructed patient to call pharmacy regarding change in potter of Trulicity to obtain information regarding how the medication was billed for. Instructed that if nothing has changed from that perspective, then to follow-up with insurance ragarding potter change Will also send co-pay card to patient through [employer] to help reduce cost of medication Discussed need for aerobic exercise with goal 30 mins/day, 5x/week Encouraged to eat more vegetables (not potatoes), fruit (if buying in can, encourage to avoid buying fruit preserved in syrup), and lean proteins (low fat cottage cheese, chicken, fish, spanish yogurt,nuts) Encouraged patient to scheduled appointment with Dr Sykes ACEi/ARB for renal protection: Yes Statin: Yes HbA1c: due 09/06/2022 Follow-up Patient is not scheduled to see PCP team. Patient to have f/up with PharmD team on 09/18/2022 at 130PM. Patient verbalized understanding of instructions. Matthew Lieberman PharmD, [facility] PGY1 Clinical Senior Client Advisor The majority of the pharmacy visit (> 50%) was spent counseling and/or coordinating care for thepatient. interaction: telephonic time was 30 minutes. * Enmanuel Masters RPh - 08/20/2022 1:00 PM EDT The patient's case was discussed with the cert pharmacy tech who interviewed the patient. Jose elements of history confirmed during office visit. The progress note reflects my input and comments. Enmanuel Masters PharmD, [facility] Primary Care Clinical Pharmacist documented in this encounterMi[facility]03-30-2023 Miscellaneous Notes* Telephone Encounter - Mirna Woodson Ma - 08/08/2022 3:54 PM EDT Patient requesting refills as follow: Last prescribed : 03/05/22 Last OV: 06/11/22 Next OV: none Requested Prescriptions Pending Prescriptions Disp Refills lancets (ONE TOUCH DELICA) 33 gauge [Pharmacy Med Name: ONE TOUCH DELICA 33G LANCETS] Sig: USE TO CHECK BLOOD SUGARS TWICE DAILY OR DIRECTED. Please review and advise. Mirna Woodson Ma documented in this encounterMi[facility]03-07-2023 History of Present illness Narrative* Enmanuel Masters RPh - 07/16/2022 1:00 PM EST Primary Care Pharmacy Visit CC (Reason for Consult): Diabetes Goal: A1c < 7% Collaborating Provider: Dr. Sykes Last Provider Visit: 06/11/22 Margie Haynes is a 47 year old male presenting for follow up visit by telephone. Patient consents to pharmacy collaborative practice agreement. Patient is presenting today for f/up pharmacotherapy management appointment for diabetes. At PharmDvisit on 03/12, patient indicated Ozempic was too expensive but was getting new insurance in 90days and was hopeful copay would be cheaper. Metformin was started and dietary modifications encouraged. 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 At last PharmD visit on 05/21, patient seemed agreeable to starting insulin but preferred he meet with Dr. Watkins (senior web services developer) prior to starting insulin. Trulicity was started, metformin decreased for GI ADEs, and dietary modifications encouraged. At last PCP appt, no med changes made but patient reported improved BG control since starting Trulicityand cutting back on soda. Subjective: HPI: He decreased metformin to 2 tabs daily and still having a lot of stomach GI ADEs. I just can't keep doing this. Says it is affecting everything. Causes diarrhea daily, no cramping or abdominal pain. He did try 1 tab daily and had same amount of side effects. He has not stopped metformin to see ifGI issues go away. He was able to get Trulicity, thinks it is working to help bring down blood sugars. Having slightlyreduced appetite. Has cut back on portion sizes. Stomach issues did not worsen when started Trulicity. Has noticed some improvement in energy. Not peeing nearly as much. Currently waking up 0-1x/night to pee, previously was waking up 2-3 times per night. Having some issues in the bedroom department, can't maintain an erection. Has not seen senior web services developer yet. They do not have an appt scheduled yet, waiting to see how thingsgo with Trulicity. Current DM Medications: Metformin ER 500mg daily with food (taking 2 tabs daily) Glimepiride 4mg BID Dulaglutide (Trulicity) 0.75mg weekly on Past DM medications: Metformin - GI upset Januvia - stopped when switched to Ozempic GLYCEMIC CONTROL: Glucometer present at visit: No SMBG s: reported Bgs 140s-190s; had 1 morning >200 but cheated the night before Hypoglycemia: had a feeling of lower BG recently, BG was 120 mg/dL How corrected: thinks he had a piece of candy Preventative Medications: On LIYA/ARB: Yes On Statin: Yes DIET/EXERCISE/SOCIAL Hx: Switched to diet pop Trying to cut back on snacking at night; no longer drinking regular pop at night Eating smaller portions since starting Trulicity MEDICATIONS: Pill bottles are not present Adherence: denies missed doses Pharmacy: [facility] Rx coverage: [employer] [place]; has a $5000 deductible; started new job but benefits don't start for 90 days Affordability: [employer] Organization System: none ACTIVE PROBLEM LIST History of Pacemaker Renetta On Cpap Fatty Infiltration of Liver Uncontrolled Type 2 Diabetes Mellitus With Hyperglycemia (Hcc) H/O Atrial Fibrillation Without Current Medication Microscopic Hematuria Malignant Neoplasm of Left Kidney, Except Renal Pelvis (Hcc) S/P Nephrectomy Obesity, Class Iii, Bmi 40-49.9 (Morbid Obesity) (Hcc) Coronary Artery Disease Involving [place] Coronary Artery of [place] Heart Without Angina Pectoris Low Testosterone in Male PAST MEDICAL HISTORY Diagnosis Date Atrial fibrillation (HCC) Controlled type 2 diabetes mellitus without complication, without long-term current use of insulin (HCC) 12/08/2015 Coronary artery disease 2013 hx HI 2013 History of pacemaker 2009 a fib Left kidney mass HI (myocardial infarction) (HCC)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 ALLERGIES Allergen Reactions Amoxicillin Unknown Rash at 3 years of age. Has tolerated augmentin in the past. Metformin GI Upset Medication List Medication Directions Comments Action/Plan aspirin, enteric coated (ECOTRIN LOW STRENGTH) 81 mg EC tablet Take 1 tablet by mouth once daily. taking atorvastatin (LIPITOR) 20 mg tablet Take 1 tablet by mouth once daily. taking blood sugar diagnostic (PixstaTOUCH ULTRA TEST) test strip Use to check blood sugars twice daily or asdirected. supplies Blood-Glucose Meter (PixstaTOUCH ULTRAMINI) monitoring kit Use to check blood sugars twice daily or asdirected. supplies cetirizine (ZYRTEC) 10 mg tablet Take 1 tablet by mouth once daily. Taking daily CPAP BiPAP supplies including large mask, tubing and headgear for BiPAP Auto Remstar F10 machine supplies Discontinued: 03/05/2022 7:18 PM glimepiride (AMARYL) 4 mg tablet Take 1 tablet by mouth twice daily with meals. Taking BID Insulin [place], Disposable, (NOVOFINE 32) 32 gauge x 1/4 ndle To use with ozempic pen Patient not taking: Reported on 03/05/2022 Discontinued: 03/05/2022 7:18 PM lancets (ONE TOUCH DELICA) 33 gauge Use to check blood sugars twice daily or as directed. supplies Discontinued: 03/05/2022 7:18 PM lisinopril (ZESTRIL, PRINIVIL) 10 mg tablet Take 1 tablet by mouth once daily. taking semaglutide (OZEMPIC) 0.25 mg or 0.5 mg(2 mg/1.5 mL) pen Inject 0.25 mg subcutaneously one time a week. For 1 month, then increase to 0.5 mg subcutaneously weekly Not taking due to cost Rx meds not listed in EPIC: none OTCs: none Herbals: none Objective: Exam: Last 3 Encounter BP Readings: Date: BP: 03/05/2022 118/76 03/02/2020 128/76 06/22/2019 124/72[MD recheck[ Wt: 118.4 kg (261 lb) BMI: 39.68 kg/(m^2) LABS: Reviewed Lab Results Component Value Date HBA1C 11.0 03/09/2022 HBA1C 13.0 05/22/2021 HBA1C 8.9 11/06/2019 HBA1C 12.0 06/22/2019 HBA1C 11.8 02/16/2019 HBA1C 10.8 11/21/2018 CMP: Glucose 353 03/09/2022 BUN 22 03/09/2022 Creatinine 0.98 03/09/2022 Sodium 135 03/09/2022 Potassium 4.8 03/09/2022 Chloride 99 03/09/2022 CO2 23 03/09/2022 Protein, Total 7.3 03/09/2022 Albumin 4.4 03/09/2022 Calcium 9.5 03/09/2022 Alkaline Phosphatase 53 03/09/2022 Bilirubin, Total 0.5 03/09/2022 AST 20 03/09/2022 ALT 28 03/09/2022 eGFR 95 (per CMP 03/09/22) Lab Results Component Value Date CHOL 141 03/09/2022 CHOL 114 05/22/2021 LDL 62 03/09/2022 LDL 48 05/22/2021 HDL 32 03/09/2022 HDL 35 05/22/2021 TG 237 03/09/2022 TG 155 05/22/2021 The 10-year ASCVD risk score (Nkechi REYES, et al., 2019) is: 4.5% Values used to calculate the score: Age: 46 years Sex: Male Is Non- : No Diabetic: Yes Tobacco smoker: No Systolic Blood Pressure: 118 mmHg Is BP treated: No HDL Cholesterol: 32 mg/dL Total Cholesterol: 141 mg/dL Albumin/Creat Ratio (mg/g) Date Value 05/22/2021 36 (H) PHARMACOTHERAPY ASSESSMENT/PLAN: 1. 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; Ozempic unaffordable - likely too expensive given high deductible; patient previously did not tolerate metforminbut open to trying ER version; will f/up in 1 mo - may consider seeing if Trulicity is more affordable (though per online formulary they are both Tier 2); briefly discussed Mounjaro but given patient's hx of CAD would prefer patient stay on GLP1 with evidence for CV benefits; renal fxn and LFTs sufficient for use INITIATE metformin ER 500mg daily, gradually increase every few days to goal dose of 4 tabs daily (2000mg) as tolerated CONTINUE glimepiride 4mg BID Encouraged dietary modifications --> eliminate soda [facility] Stressed importance of exercise and weight loss Resume occasional SMBG ACEi/ARB for renal protection: yes, Scr and K+ sufficient Statin: yes but indicated for high intensity given ASCVD --> to discuss at future visit HbA1c: due 06/09/22 2. Medication management - ICD9: V58.69, ICD10: Z79.899 Reviewed all medications, indications, dosing, frequency, administration with patient. Medication list updated as described above. Follow-up Patient is scheduled to see PCP team on 04/10. Patient to have f/up with PharmD team on 04/15. Patient verbalized understanding of instructions. Enmanuel Masters, [place], [facility] Primary Care Clinical Pharmacist The majority of the pharmacy visit (> 50%) was spent counseling and/or coordinating care for thepatient. interaction: telephonic time was 45 minutes. documented in this encounterMiami Valley Hospital10-28-2022 Miscellaneous Notes* Telephone Encounter - Hiram Sykes MD - 03/08/2022 12:45 PM EDT Noted Will allow him to discuss this with Enmanuel MOJICA * Telephone Encounter - Mulu Steel RN - 03/08/2022 12:38 PM EDT Has a call with Enmanuel on Friday to discuss, but wanted PCP to be aware that ozempic cost $900 and did not pick it up. Reason for Disposition [1] Follow-up call to recent contact AND [2] information only call, no triage required Protocols used: Information Only Call - No [id number] documented in this encounterMiami Valley Hospital10-25-2022 Instructions* Patient Instructions* Hiram Sykes MD - 03/05/2022 7:19 PM EDT Continue the medications Restart the ozempic Check blood work fasting Make appointment with cardiology Follow up with me in 3 months Keep appointment with Enmanuel documented in this encounterMiami Valley Hospital10-25-2022 History of Present illness Narrative* Mirna Woodson Ma - 03/05/2022 7:02 PM EDT HEPATITIS B(1 of 3 - 3-dose series) Never done COVID-19 VACCINE(1) Never done PNEUMOCOCCAL(2 - PCV) due on 03/08/2015 COLORECTAL CANCER SCREENING Never done DILATED RETINAL EXAM due on 11/12/2019 DIABETIC FOOT EXAM due on 10/04/2020 DEPRESSION ASSESSMENT Never done HBA1C due on 08/20/2021 INFLUENZA(1) due on 01/10/2022 Patient was notified during this office visit to schedule any future appointment's recommendations by provider after today's appointment- FOLLOW UP APPOINTMENT REMINDER (GREEN) CARD GIVEN AT THIS VISIT. PATIENT GAVE VERBAL UNDERSTANDING. Mirna Brooks) * Hiram Sykes MD - 03/05/2022 6:57 PM EDT Margie Haynes is a 46 year old male presenting for follow up CAD/HTN/HLD: Patient does follow with cardiology Has been doing the lisinopril and Lipitor Has also been doing the baby aspirin Patient reports no lightheadedness or dizziness No chest pain or palpitations No nausea or vomiting D DM: Blood sugars are ranging in the 300 Has been like this all the time He has been taking the glimiperide twice per day The blood sugars went up when he had stopped the ozempic His last A1C w As lower when he was on this He is scheduled to see Enmanuel in Nov Had flareup of some sciatica about a month ago This has resolved Was quite painful he says HISTORIES: PAST MEDICAL HISTORY Diagnosis Date Atrial fibrillation (HCC) Controlled type 2 diabetes mellitus without complication, without long-term current use of insulin (HCC) 12/08/2015 Coronary artery disease 2013 hx HI 2013 History of pacemaker 2008 a fib Left kidney mass HI (myocardial infarction) (HCC) 2013 Nephrolithiasis 1996 passed spontaneously RENETTA on CPAP Renal cancer (HCC) 11/20/15 left, pending surgery PAST SURGICAL HISTORY Procedure Laterality Date ADENOIDECTOMY SECONDARY AGE 10/> age 3 APPENDECTOMY 02/2018 CARDIAC PACEMAKER PLACEMENT HX 2009 HEART CATHETERIZATION 2014 HI, neg PAST SURGICAL HISTORY OF 12/2015 ROBOTIC LAPAROSCOPIC NEPHRECTOMY RADICAL (Left) FAMILY HISTORY Problem Relation Age of Onset other (Cancer, cervical/ intestinal[other]) Mother other (Cancer, pancreatic[other]) Maternal Grandmother 73 yrs other (Cancer, leukemia[other]) Paternal Grandmother 70 yrs Diabetes Maternal Uncle other (TIA[other]) Brother due to chemicals on job COPD Father 86 yrs Cataract Father Social History: Social History Tobacco Use Smoking status: Never Smokeless tobacco: Never Vaping Use Vaping Use: Never used Substance Use Topics Alcohol use: Yes Comment: minimal ( 6 pack will last for 1 year) Drug use: No Allergies: ALLERGIES Allergen Reactions Amoxicillin Unknown Rash at 3 years of age. Has tolerated augmentin in the past. Metformin GI Upset Medications: blood sugar diagnostic (ONETOUCH ULTRA TEST) test strip Use to check blood sugars twice daily or asdirected. Blood-Glucose Meter (ONETOUCH ULTRAMINI) monitoring kit Use to check blood sugars twice daily or asdirected. CPAP BiPAP supplies including large mask, tubing and headgear for BiPAP Auto Remstar F10 machine aspirin, enteric coated (ECOTRIN LOW STRENGTH) 81 mg EC tablet Take 1 tablet by mouth once daily. cetirizine (ZYRTEC) 10 mg tablet Take 1 tablet by mouth once daily. semaglutide (OZEMPIC) 0.25 mg or 0.5 mg(2 mg/1.5 mL) pen Inject 0.25 mg subcutaneously one time a week. For 1 month, then increase to 0.5 mg subcutaneously weekly glimepiride (AMARYL) 4 mg tablet Take 1 tablet by mouth twice daily with meals. atorvastatin (LIPITOR) 20 mg tablet Take 1 tablet by mouth once daily. lisinopril (ZESTRIL, PRINIVIL) 10 mg tablet Take 1 tablet by mouth once daily. lancets (ONE TOUCH DELICA) 33 gauge Use to check blood sugars twice daily or as directed. Insulin [place], Disposable, (NOVOFINE 32) 32 gauge x 1/4 ndle To use with ozempic pen (Patient not taking: Reported on 03/05/2022) REVIEW OF SYSTEMS See HPI PHYSICAL EXAMINATION: BP 118/76 (BP Site: Left Arm, BP Position: Sitting, BP Cuff Size: Large Adult) Pulse 83 Temp 36.9 C (98.5 F) (Temporal) Wt 118.4 kg (261 lb) SpO2 98% BMI 39.68 kg/m General Appearance: Well appearing, alert, in no acute distress, well-hydrated, well nourished.. Neck: Supple, no adenopathy; thyroid symmetric, normal size, no bruits. Lungs: Lungs clear to auscultation. No wheezing, rhonchi, rales.. Heart: RRR without murmur, gallop, or rubs. No ectopy. Extremities: No deformities, edema, skin discoloration, clubbing or cyanosis. Good capillary refill. . ASSESSMENT/PLAN: 1. Uncontrolled type 2 diabetes mellitus with hyperglycemia (HCC) - ICD9: 250.02, ICD10: E11.65 (primary diagnosis) Blood sugars are ranging in the 300s Was doing much better when he was on the Ozempic We will try to get this restarted Continue with the glimepiride Had previously been unable to tolerate even low dose of the metformin Does have appointment scheduled with [facility]/Pharm.D. in a couple of weeks Check blood work to use as a baseline Is up-to-date with diabetic eye exam - COMP METABOLIC PANEL - LIPID PANEL BASIC - HGB A1C - CBC - SEMAGLUTIDE 0.25 MG OR 0.5 MG (2 MG/1.5 ML) SUBCUTANEOUS PEN INJECTOR 2. RENETTA on CPAP - ICD9: 327.23, V46.8, ICD10: G47.33, Z99.89 Continue with the CPAP Does work well for him 3. Coronary artery disease involving lytton coronary artery of lytton heart without angina pectoris- ICD9: 414.01, ICD10: I25.10 4. H/O atrial fibrillation without current medication - ICD9: V12.59, ICD10: Z86.79 5. History of pacemaker - ICD9: V12.50, V45.01, ICD10: Z95.0 Check blood work including CBC, CMP, lipid panel Refill medications including lisinopril, Lipitor Continue with aspirin Schedule appointment with cardiology Patient reports no acute episodes now such as chest pain or palpitations - CONSULT TO CARDIOLOGY MD Hiram Frank MD [facility] Miscellaneous Notes* Telephone Encounter - Wendy Alanis RN - 01/18/2022 10:52 AM EDT Called patient and spouse, reviewed isolation guidelines and emergency warning signs when to seek medical attention. Patient denies severe symptoms at this time. Patient denies any questions at this time. * Telephone Encounter - Hiram Sykes MD - 01/18/2022 7:40 AM EDT Please call and inform patient that his test for COVID did come back positive No indication for antibiotics with the symptoms Recommend symptomatic treatment for now Depending on severity of symptoms, would consider oral antivirals if he does wish If so, please let us know Thanks * Telephone Encounter - Angella Brice Pss - 01/17/2022 2:47 PM EDT Patient's , Keshia, said patient had virtual appt with Phuong Jean today and she ordered a COVID test, but wouldn't prescribe him any medication. Said she knows he does not have COVID. She is upset that patient was not prescribed the same medication that Dr. Sykes gave her for the same symptoms. She wanted a message sent to Dr. Sykes to see if he could prescribe the patient the medication that she had. Please advise at [phone]. documented [facility]-2022 Miscellaneous Notes* Telephone Encounter - Cris Mcneill - 01/17/2022 6:13 PM EDT Patient's insurance information is not up to date. Called patient, but no answer. Left voicemail requesting patient call us back to update insurance info. Please assist in updating registration if/when he calls back. Crsi Charito documented in this encounterMi[facility]09-[facility]22 History of Present illness Narrative* Phuong Jean APRN.BRIDGE MECHANIC - 01/17/2022 2:23 PM EDT VIRTUAL VISIT PROGRESS NOTE This is a virtual visit using Alternative video platform. It required patient- provider interaction for the medical decision making as documented below. Margie Haynes is a 46 year old male seen for sinus symptoms. Sinuses plugged up and thumping like they are full. Started yesterday, worse today. Has been working in dust and outside. Taking mucinex which is helping a little. Little cough. No sick contacts. Not covid vaccinated. Last time with this sinus infection in got a Z-pack. HISTORY REVIEWED (electronic chart updated): PAST MEDICAL HISTORY Diagnosis Date Atrial fibrillation (HCC) Controlled type 2 diabetes mellitus without complication, without long-term current use of insulin (HCC) 12/08/2015 Coronary artery disease 2013 hx HI 2013 History of pacemaker 2008 a fib Left kidney mass HI (myocardial infarction) (HCC) 2013 Nephrolithiasis 1996 passed spontaneously RENETTA on CPAP Renal cancer (HCC) 11/20/15 left, pending surgery PAST SURGICAL HISTORY Procedure Laterality Date ADENOIDECTOMY SECONDARY AGE 10/> age 3 APPENDECTOMY 02/2018 CARDIAC PACEMAKER PLACEMENT HX 2009 HEART CATHETERIZATION 2014 HI, neg PAST SURGICAL HISTORY OF 12/2015 ROBOTIC LAPAROSCOPIC NEPHRECTOMY RADICAL (Left) FAMILY HISTORY Problem Relation Age of Onset other (Cancer, cervical/ intestinal[other]) Mother other (Cancer, pancreatic[other]) Maternal Grandmother 73 yrs other (Cancer, leukemia[other]) Paternal Grandmother 70 yrs Diabetes Maternal Uncle other (TIA[other]) Brother due to chemicals on job COPD Father 86 yrs Cataract Father Social History Tobacco Use Smoking status: Never Smokeless tobacco: Never Substance Use Topics Alcohol use: Yes Comment: minimal ( 6 pack will last for 1 year) Drug use: No Current Outpatient Medications Medication Sig glimepiride (AMARYL) 4 mg tablet Take 1 tablet by mouth twice daily with meals. atorvastatin (LIPITOR) 20 mg tablet Take 1 tablet by mouth once daily. lisinopril (ZESTRIL, PRINIVIL) 10 mg tablet Take 1 tablet by mouth once daily. lancets (ONE TOUCH DELInnoVital Systems) 33 gauge Use to check blood sugars twice daily or as directed. Blood-Glucose Meter (PixstaTOUCH ULTRAMINI) monitoring kit Use to check blood sugars twice daily or asdirected. blood sugar diagnostic (ONETOUCH ULTRA TEST) test strip Use to check blood sugars twice daily or asdirected. CPAP BiPAP supplies including large mask, tubing and headgear for BiPAP Auto Remstar F10 machine Insulin [place], Disposable, (NOVOFINE 32) 32 gauge x 1/4 ndle To use with ozempic pen aspirin, enteric coated (ECOTRIN LOW STRENGTH) 81 mg EC tablet Take 1 tablet by mouth once daily. cetirizine (ZYRTEC) 10 mg tablet Take 1 tablet by mouth once daily. No current facility-administered medications for this visit. ALLERGIES Allergen Reactions Amoxicillin Unknown Rash at 3 years of age. Has tolerated augmentin in the past. Metformin GI Upset REVIEW OF SYSTEMS: As noted in HPI PHYSICAL EXAMINATION: VIDEO EXAM: (if completed, performed via video enabled technology) GENERAL: alert and appropriate, in no distress and well-hydrated, well nourished NOSE: external nose normal without rhinorrhea and congested OROPHARYNX: moist mucus membranes RESPIRATORY: breathing non-labored, no grunting/flaring/retractions, and occasional dry cough CHEST: equal chest rise with normal respiratory effort ASSESSMENT: (B34.9) Viral illness (primary encounter diagnosis) PLAN: Continue with symptomatic treatment - start flonase Fluids Covid flu test ordered and scheduled Will determine tx based on results There are no Patient Instructions on file for this visit. Phuong Jean APRN.TERELL documented in this [facility]09-[facility]-2022 Miscellaneous Notes* Telephone Encounter - Mulu Steel RN - 01/17/2022 8:36 AM EDT Spoke to who is at work and she said patient is at home and can be triaged. Will call patient for symptoms. Spoke to patient who said: Symptoms started yesterday Fatigued Congested nose Sore throat Fever last night Chills Productive cough Some tightness in chest Body aches Denies headache, SOB Taking mucinex Discussed that these symptoms could be from covid, patient believes he has a sinus infection like his (she was prescribed and antibiotic) and he is also requesting an antibiotic. Patient states he does not have a covid test at home, I offered to order/schedule one for him and he requested to have his purchase one from the store. I advised patient to stay well hydrated and isolate for now. VV scheduled today with Phuong Reason for Disposition [1] COVID-19 infection suspected by caller or triager AND [2] mild symptoms (cough, fever, or others) AND [3] has not gotten tested yet Answer Assessment - Initial Assessment Questions 1. COVID-19 DIAGNOSIS: Who made your COVID-19 diagnosis? Was it confirmed by a positive lab testor self-test? If not diagnosed by a doctor (or [facility]), ask Are there lots of cases (community spread) where you live? Note: See public health department website, if unsure. Not diagnosed 2. COVID-19 EXPOSURE: denies/unknow 3. ONSET: yesterday 4. WORST SYMPTOM: muscle aches 5. COUGH: ye sproductive 6. FEVER: not measured but had a fever last night 7. RESPIRATORY STATUS: some chest tightness 8. [id number]: 9. HIGH RISK DISEASE: 10. VACCINE: 11. BOOSTER: 12. : no 13. OTHER SYMPTOMS: chills, fatigue, muscle pain, sore throat 14. O2 SATURATION MONITOR: Protocols used: Coronavirus (COVID-19) Diagnosed or [id number] documented in this encounter[facility]05-31-2022 Instructions* Patient Instructions* Hiram Sykes MD - 10/09/2021 7:04 PM EDT Will call to schedule appointment in the office documented [facility] encounter[facility]05[facility]22 History of Present illness Narrative* Hiram Sykes MD - 10/09/2021 6:50 PM EDT DISTANCE HEALTH VISIT This Team Access Model visit is a phone encounter. It required patient-provider interaction for themedical decision making as documented below. Patient did consent to phone visit Participants: Patient, his , and myself Total time including chart prep, review, and visit: 21-30 minutes Margie aHynes is a 46 year old male seen for follow up DM: Has not been checking his BG's He is not taking the ozempic The insurance does not cover it (has tried the metformin again and he had GI issues Does watch the carb and sweets intake He had gained some weight Has now been trying to cut down on portions Has slost some weight CAD/HTN/HLD: Has stil been doing the lisinopril and the lipitor Does check his blood pressure occasionally He is very tired and rao He just irritable Seems to be when his blood sugars are high RENETTA He has been doing the CPAP nightly Feels like the pressure is not corrent Does not seem to be doing what it did before HISTORY REVIEWED (electronic chart updated): - medical history - medications - allergies REVIEW OF SYSTEMS: As noted in HPI PHYSICAL EXAMINATION: VIDEO EXAM: (if done, performed via video enabled technology) GENERAL: alert and appropriate, in no distress Respiratory: No audible wheeze or cough, able to talk in complete sentences ASSESSMENT/PLAN: 1. Uncontrolled type 2 diabetes mellitus with hyperglycemia (HCC) - ICD9: 250.02, ICD10: E11.65 (primary diagnosis) Patient does not check his blood sugars Was not able to get authorization for the Ozempic when he was in [place] Has been doing the glimepiride Will need to get him back in touch with Pharm.D./[facility] Perhaps prior authorization can be done Patient is actually not able to tolerate the metformin because of severe GI issues Most recent hemoglobin A1c was quite high back in May Hemoglobin A1C (%) Date Value 05/22/2021 13.0 11/06/2019 8.9 11/21/2018 10.8 06/15/2016 7.2 02/19/2016 7.1 Hemoglobin A1C (POCT) (%) Date Value 06/22/2019 12.0 02/16/2019 11.8 2. Coronary artery disease involving lytton coronary artery of lytton heart without angina pectoris- ICD9: 414.01, ICD10: I25.1 3. H/O atrial fibrillation without current medication - ICD9: V12.59, ICD10: Z86.79 4. History of pacemaker - ICD9: V12.50, V45.01, ICD10: Z95.0 Tolerating medications Will need to get him set back up with cardiology Blood pressure seems to be doing good Lipids were under decent control on last check 5. RENETTA on CPAP - ICD9: 327.23, V46.8, ICD10: G47.33, Z99.89 Continue with the CPAP Hiram Sykes MD documented [facility] encounter[facility]08[facility] History of Past illness Narrative* Problem Noted Date Resolved Date Screening for genitourinary condition 12/25/2015 02/13/2016 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 Left kidney mass 01/22/2016 documented as of this encounter (statuses as of 10/09/2021) [address]15-2016 History of Past illness Narrative* Problem Noted Date Resolved Date Screening for genitourinary condition 12/25/2015 02/13/2016 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 Left kidney mass 01/22/2016 documented as of this encounter (statuses as of 01/17/2022) [address]15-2016 History of Past illness Narrative* Problem Noted Date Resolved Date Screening for genitourinary condition 12/25/2015 02/13/2016 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 Left kidney mass 01/22/2016 documented as of this encounter (statuses as of 01/17/2022) [address]15-2016 History of Past illness Narrative* Problem Noted Date Resolved Date Screening for genitourinary condition 12/25/2015 02/13/2016 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 Left kidney mass 01/22/2016 documented as of this encounter (statuses as of 01/18/2022) [address]15-2016 History of Past illness Narrative* Problem Noted Date Resolved Date Screening for genitourinary condition 12/25/2015 02/13/2016 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 Left kidney mass 01/22/2016 documented as of this encounter (statuses as of 03/05/2022) [address]2016 History of Past illness Narrative* Problem Noted Date Resolved Date Screening for genitourinary condition 12/25/2015 02/13/2016 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 Left kidney mass 01/22/2016 documented as of this encounter (statuses as of 03/08/2022) [address]2016 History of Past illness Narrative* Problem Noted Date Resolved Date Screening for genitourinary condition 12/25/2015 02/13/2016 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 Left kidney mass 01/22/2016 documented as of this encounter (statuses as of 03/12/2022) [address]2016 History of Past illness Narrative* Problem Noted Date Resolved Date Screening for genitourinary condition 12/25/2015 02/13/2016 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 Left kidney mass 01/22/2016 documented as of this encounter (statuses as of 03/12/2022) [address]2016 History of Past illness Narrative* Problem Noted Date Resolved Date Screening for genitourinary condition 12/25/2015 02/13/2016 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 Left kidney mass 01/22/2016 documented as of this encounter (statuses as of 03/14/2022) [address]2016 History of Past illness Narrative* Problem Noted Date Resolved Date Screening for genitourinary condition 12/25/2015 02/13/2016 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 Left kidney mass 01/22/2016 documented as of this encounter (statuses as of 04/05/2022) [address]2016 History of Past illness Narrative* Problem Noted Date Resolved Date Screening for genitourinary condition 12/25/2015 02/13/2016 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 Left kidney mass 01/22/2016 documented as of this encounter (statuses as of 05/17/2022) [address]15[address]2016 History of Past illness Narrative* Problem Noted Date Resolved Date Screening for genitourinary condition 12/25/2015 02/13/2016 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 Left kidney mass 01/22/2016 documented as of this encounter (statuses as of 05/17/2022) [address]2016 History of Past illness Narrative* Problem Noted Date Resolved Date Screening for genitourinary condition 12/25/2015 02/13/2016 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 Left kidney mass 01/22/2016 documented as of this encounter (statuses as of 05/21/2022) [address]2016 History of Past illness Narrative* Problem Noted Date Resolved Date Screening for genitourinary condition 12/25/2015 02/13/2016 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 Left kidney mass 01/22/2016 documented as of this encounter (statuses as of 05/21/2022) [address]2016 History of Past illness Narrative* Problem Noted Date Resolved Date Screening for genitourinary condition 12/25/2015 02/13/2016 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 Left kidney mass 01/22/2016 documented as of this encounter (statuses as of 05/31/2022) [address]2016 History of Past illness Narrative* Problem Noted Date Resolved Date Screening for genitourinary condition 12/25/2015 02/13/2016 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 Left kidney mass 01/22/2016 documented as of this encounter (statuses as of 06/07/2022) [address]2016 History of Past illness Narrative* Problem Noted Date Resolved Date Screening for genitourinary condition 12/25/2015 02/13/2016 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 Left kidney mass 01/22/2016 documented as of this encounter (statuses as of 06/11/2022) [address]2016 History of Past illness Narrative* Problem Noted Date Resolved Date Screening for genitourinary condition 12/25/2015 02/13/2016 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 Left kidney mass 01/22/2016 documented as of this encounter (statuses as of 06/11/2022) [address]2016 History of Past illness Narrative* Problem Noted Date Resolved Date Screening for genitourinary condition 12/25/2015 02/13/2016 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 Left kidney mass 01/22/2016 documented as of this encounter (statuses as of 07/16/2022) [address] History of Past illness Narrative* Problem Noted Date Resolved Date Screening for genitourinary condition 12/25/2015 02/13/2016 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 Left kidney mass 01/22/2016 documented as of this encounter (statuses as of 07/16/2022) [address]2016 History of Past illness Narrative* Problem Noted Date Resolved Date Screening for genitourinary condition 12/25/2015 02/13/2016 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 Left kidney mass 01/22/2016 documented as of this encounter (statuses as of 07/16/2022) [address]2016 History of Past illness Narrative* Problem Noted Date Resolved Date Screening for genitourinary condition 12/25/2015 02/13/2016 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 Left kidney mass 01/22/2016 documented as of this encounter (statuses as of 08/08/2022) [address]2016 History of Past illness Narrative* Problem Noted Date Resolved Date Screening for genitourinary condition 12/25/2015 02/13/2016 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 Left kidney mass 01/22/2016 documented as of this encounter (statuses as of 08/21/2022) [address]2016 History of Past illness Narrative* Problem Noted Date Resolved Date Screening for genitourinary condition 12/25/2015 02/13/2016 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 Left kidney mass 01/22/2016 documented as of this encounter (statuses as of 09/04/2022) [address]2016 History of Past illness Narrative* Problem Noted Date Resolved Date Screening for genitourinary condition 12/25/2015 02/13/2016 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 Left kidney mass 01/22/2016 documented as of this encounter (statuses as of 09/11/2022) [address]2016 History of Past illness Narrative* Problem Noted Date Resolved Date Screening for genitourinary condition 12/25/2015 02/13/2016 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 Left kidney mass 01/22/2016 documented as of this encounter (statuses as of 09/18/2022) [address]2016 History of Past illness Narrative* Problem Noted Date Diagnosed Date Resolved Date Screening for genitourinary condition 12/25/2015 02/13/2016 Neoplasm of uncertain behavior of left kidney 12/25/19 16 01/22/2016 Left kidney mass 01/22/2016 documented as of this encounter (statuses as of 12/13/2022) [address]2016 History of Past illness Narrative* Problem Noted Date Diagnosed Date Resolved Date Screening for genitourinary condition 12/25/2015 02/13/2016 Neoplasm of uncertain behavior of left kidney 12/25/19 16 01/22/2016 Left kidney mass 01/22/2016 documented as of this encounter (statuses as of 12/31/2022) [address]2016 History of Past illness Narrative* Problem Noted Date Diagnosed Date Resolved Date Screening for genitourinary condition 12/25/2015 02/13/2016 Neoplasm of uncertain behavior of left kidney 12/25/19 16 01/22/2016 Left kidney mass 01/22/2016 documented as of this encounter (statuses as of 01/17/2023) [address]2016 History of Past illness Narrative* Problem Noted Date Diagnosed Date Resolved Date Screening for genitourinary condition 12/25/2015 02/13/2016 Neoplasm of uncertain behavior of left kidney 12/25/19 16 01/22/2016 Left kidney mass 01/22/2016 documented as of this encounter (statuses as of 01/31/2023) [address]2016 History of Past illness Narrative* Problem Noted Date Diagnosed Date Resolved Date Screening for genitourinary condition 12/25/2015 02/13/2016 Neoplasm of uncertain behavior of left kidney 12/25/19 16 01/22/2016 Left kidney mass 01/22/2016 documented as of this encounter (statuses as of 02/24/2023) [address]2016 History of Past illness Narrative* Problem Noted Date Diagnosed Date Resolved Date Screening for genitourinary condition 12/25/2015 02/13/2016 Neoplasm of uncertain behavior of left kidney 12/25/19 16 01/22/2016 Left kidney mass 01/22/2016 documented as of this encounter (statuses as of 03/04/2023) [address]2016 History of Past illness Narrative* Problem Noted Date Diagnosed Date Resolved Date Screening for genitourinary condition 12/25/2015 02/13/2016 Neoplasm of uncertain behavior of left kidney 12/25/19 16 01/22/2016 Left kidney mass 01/22/2016 documented as of this encounter (statuses as of 03/04/2023) [address]2016 History of Past illness Narrative* Problem Noted Date Diagnosed Date Resolved Date Screening for genitourinary condition 12/25/2015 02/13/2016 Neoplasm of uncertain behavior of left kidney 12/25/19 16 01/22/2016 Left kidney mass 01/22/2016 documented as of this encounter (statuses as of 03/11/2023) [address]15-2016 History of Past illness Narrative* Problem Noted Date Diagnosed Date Resolved Date Screening for genitourinary condition 12/25/2015 02/13/2016 Neoplasm of uncertain behavior of left kidney 12/25/19 16 01/22/2016 Left kidney mass 01/22/2016 documented as of this encounter (statuses as of 03/18/2023) [address]15-2016 History of Past illness Narrative* Problem Noted Date Diagnosed Date Resolved Date Screening for genitourinary condition 12/25/2015 02/13/2016 Neoplasm of uncertain behavior of left kidney 12/25/19 16 01/22/2016 Left kidney mass 01/22/2016 documented as of this encounter (statuses as of 04/11/2023) [address]15-2016 History of Past illness Narrative* Problem Noted Date Diagnosed Date Resolved Date Screening for genitourinary condition 12/25/2015 02/13/2016 Neoplasm of uncertain behavior of left kidney 12/25/19 16 01/22/2016 Left kidney mass 01/22/2016 documented as of this encounter (statuses as of 04/22/2023) [address]15-2016 History of Past illness Narrative* Problem Noted Date Diagnosed Date Resolved Date Screening for genitourinary condition 12/25/2015 02/13/2016 Neoplasm of uncertain behavior of left kidney 12/25/19 16 01/22/2016 Left kidney mass 01/22/2016 documented as of this encounter (statuses as of 04/22/2023) [address]15-2016 History of Past illness Narrative* Problem Noted Date Diagnosed Date Resolved Date Screening for genitourinary condition 12/25/2015 02/13/2016 Neoplasm of uncertain behavior of left kidney 12/25/19 16 01/22/2016 Left kidney mass 01/22/2016 documented as of this encounter (statuses as of 04/22/2023) [address]15-2016 History of Past illness Narrative* Problem Noted Date Diagnosed Date Resolved Date Screening for genitourinary condition 12/25/2015 02/13/2016 Neoplasm of uncertain behavior of left kidney 12/25/19 16 01/22/2016 Left kidney mass 01/22/2016 documented as of this encounter (statuses as of 04/23/2023) [address]15-2016 History of Past illness Narrative* Problem Noted Date Diagnosed Date Resolved Date Screening for genitourinary condition 12/25/2015 02/13/2016 Neoplasm of uncertain behavior of left kidney 12/25/19 16 01/22/2016 Left kidney mass 01/22/2016 documented as of this encounter (statuses as of 06/30/2023) [address]15-2016 History of Past illness Narrative* Problem Noted Date Diagnosed Date Resolved Date Screening for genitourinary condition 12/25/2015 02/13/2016 Neoplasm of uncertain behavior of left kidney 12/25/19 16 01/22/2016 Left kidney mass 01/22/2016 documented as of this encounter (statuses as of 08/30/2023) [facility] note* Diagnosis Uncontrolled type 2 diabetes mellitus with hyperglycemia (HCC)- Primary Coronary artery disease involving lytton coronary artery of lytton heart without angina pectoris H/O atrial fibrillation without current medication Personal history of other diseases of circulatory system History of pacemaker Personal history of unspecified circulatory disease RENETTA on CPAP Obstructive sleep apnea (adult) (pediatric) [facility] Diagnosis Viral illness- Primary Unspecified viral infection, in conditions classified elsewhere and of unspecified site [facility] Diagnosis Uncontrolled type 2 diabetes mellitus with hyperglycemia (HCC)- Primary RENETTA on CPAP Obstructive sleep apnea (adult) (pediatric) Coronary artery disease involving lytton coronary artery of lytton heart without angina pectoris H/O atrial fibrillation without current medication Personal history of other diseases of circulatory system History of pacemaker Personal history of unspecified circulatory disease [facility] Diagnosis Uncontrolled type 2 diabetes mellitus with hyperglycemia (HCC)- Primary Medication management Encounter for long-term (current) use of other medications [facility]* Diagnosis Uncontrolled type 2 diabetes mellitus with hyperglycemia (HCC) [facility] Diagnosis Coronary artery disease involving lytton coronary artery of lytton heart without angina pectoris- Primary H/O atrial fibrillation without current medication Personal history of other diseases of circulatory system History of pacemaker Personal history of unspecified circulatory disease Obesity, Class III, BMI 40-49.9 (morbid obesity) (HCC) Morbid obesity RENETTA on CPAP Obstructive sleep apnea (adult) (pediatric) Uncontrolled type 2 diabetes mellitus with hyperglycemia (HCC) [facility]* Diagnosis Vasovagal syncope- Primary Syncope and collapse [facility]* Diagnosis Uncontrolled type 2 diabetes mellitus with hyperglycemia (HCC)- Primary [facility]* Diagnosis Uncontrolled type 2 diabetes mellitus with hyperglycemia (HCC)- Primary [facility]* Diagnosis Diarrhea, unspecified type- Primary documented in this encounter [facility] note* Diagnosis Uncontrolled type 2 diabetes mellitus with hyperglycemia (HCC)- Primary documented in this encounter [facility] note* Diagnosis Coronary artery disease involving lytton coronary artery of lytton heart without angina pectoris- Primary H/O atrial fibrillation without current medication Personal history of other diseases of circulatory system Vasovagal syncope Syncope and collapse History of pacemaker Personal history of unspecified circulatory disease Obesity, Class III, BMI 40-49.9 (morbid obesity) (HCC) Morbid obesity RENETTA on CPAP Obstructive sleep apnea (adult) (pediatric) Uncontrolled type 2 diabetes mellitus with hyperglycemia (HCC) documented in this encounter [facility] note* Diagnosis Vasovagal syncope- Primary Syncope and collapse documented in this encounter [facility] note* Diagnosis Uncontrolled type 2 diabetes mellitus with hyperglycemia (HCC) Coronary artery disease involving lytton coronary artery of lytton heart without angina pectoris Syncope and collapse Persistent atrial fibrillation (HCC) Atrial fibrillation documented in this encounter [facility] note* Diagnosis Syncope, unspecified syncope type- Primary Syncope and collapse Persistent atrial fibrillation (HCC) Atrial fibrillation documented in this encounter [facility] note* Diagnosis Vasovagal syncope Syncope and collapse Syncope and collapse Persistent atrial fibrillation (HCC) Atrial fibrillation documented in this encounter [facility] note* Diagnosis Coronary artery disease involving lytton coronary artery of lytton heart without angina pectoris documented in this encounter [facility] note* Diagnosis Coronary artery disease involving lytton coronary artery of lytton heart without angina pectoris documented in this encounter [facility] note* Diagnosis Fall, initial encounter- Primary Shoulder injury, left, initial encounter documented in this encounter [facility] note* Diagnosis Traumatic tear of left rotator cuff, unspecified tear extent, initial encounter documented in this encounter [facility] Discharge instructions* Attachments The following attachments cannot be sent through Care Everywhere. * [facility]Malay[facility] Outpatient Procedure (Routine) - Authorized Specialty Diagnoses / Procedures Referred By Meryl t Referred To [facility] Diagnoses Vasovagal syncope Procedures ECG COMPLETE ECG ROUTINE ECG W/LEAST 12 LDS W/I&R Brian Hawley MD [address] [place] [address] [facility] [address] [place] [address] Referral ID Status Reason Start Date Expiration Date Visits Requested Visits Authorized [id number] Authorized Auto-Generat ed Referral 3 03/02/2024 1 [facility]No reason for referral information [facility] Work Phone: Summary Purpose Family History No Family History Records Found Relationship Condition Age at Onset Recorded Date/T faith mother Asthma Unknown Malignant neoplasm of cervix Unknown Malignant neoplasm of ovary Unknown Malignant neoplasm Unknown father Parkinson's disease Unknown grandmother Diabetes mellitus Unknown Hypertension Unknown grandfather Malignant neoplasm Unknown brother Hypertension Unknown Diabetes mellitus Unknown Cerebrovascular accident (CVA) Unknown uncle Diabetes mellitus Unknown grandmother Malignant neoplasm Unknown grandfather Myocardial infarction Unknown sister Malignant neoplasm Unknown Advance Directives No Advanced Directives Records FoundDocuments on File Type Date Recorded 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 Advance Directive(s) 04/02/2018 8:34 AM Advance Directive(s) 12/18/2015 1:53 PM Documents on File Type Date Recorded 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 Advance Directive(s) 12/18/2015 1:53 PM Documents on File Type Date Recorded 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 Advance Directive(s) 12/18/2015 1:53 PM Health Concerns Infection Onset Date Last Indicated Resolved Time COVID-19 Rule-Out 01/17/2022 01/17/2022 01/18/2022 5:48 AM EDT COVID-19 Confirmed 01/17/2022 01/17/2022 Infection Onset Date Last Indicated Resolved Time COVID-19 Rule-Out 01/17/2022 01/17/2022 01/18/2022 5:48 AM EDT COVID-19 Confirmed 01/17/2022 01/17/2022 8:51 PM EDT Reason for Referral Specialty Diagnoses / Procedures Referred By Contac t Referred To Contact Cardiology Diagnoses Coronary artery disease involving lytton coronary artery of lytton heart without angina pectoris H/O atrial fibrillation without current medication History of pacemaker Procedures CONSULT TO CARDIOLOGY OFFICE/OUTPATIENT [facility] 60-74 MINUTES Hiram Sykes MD [address] [place] [address] Referral ID Status Reason Start Date Expiration Date Visits Requested Visits Authorized [id number] Authorized PCP Requested Referral 2 03/05/2023 1 1 Specialty Diagnoses / Procedures Referred By Contac t Referred To Contact Diagnoses Syncope, unspecified syncope type Procedures CARDIOVASCULAR MEDICINE OP FOLLOW UP APPT ORDER Brian Hawley MD [address] [place] [address] Referral ID Status Reason Start Date Expiration Date Visits Requested Visits Authorized [id number] Ref Not Required PCP Requested Referral 3 04/20/2024 1 1 Specialty Diagnoses / Procedures Referred By Contac t Referred To Contact Radiology Diagnoses Traumatic tear of left rotator cuff, unspecified tear extent, initial encounter Procedures IR ARTHR/ASP/INJ MAJOR JT/BURSA LEFT WO US Amna Thomas PA-C [address] [address] Referral ID Status Reason Start Date Expiration Date Visits Re quested Visits Authorized [id number] Open 06/11/2024 06/11/2025 1 1 Chief Complaint and Reason for Visit Chief Complaint Admit Date 3 M FU July 29, 2024 8:0 8am 3 M FU November 04, 2024 8:34 am Reason for Visit Admit Date Cough July 29, 2024 8:0 8am Diabetes July 29, 2024 8:0 8am High cholesterol July 29, 2024 8:0 8am Hypertension July 29, 2024 8:0 8am Obesity July 29, 2024 8:0 8am Additional Source Comments (unrecognized sect ion and content) No Status Records FoundNo Status Records FoundNo Status Records FoundNo Status Records FoundNo Status Records FoundNo Status Records FoundNo Status Records Found INFORMATION SOURCE (unrecogn ized section and content) DATE CREATED AUTHOR 04/20/2018 [facility] DATE CREATED AUTHOR AUTHOR'S ORGANIZ ATION 08/31/2023 [facility] DATE CREATED AUTHOR AUTHOR'S ORGANIZ ATION 09/11/2023 [facility] DATE CREATED AUTHOR AUTHOR'S ORGANIZ ATION 05/28/[address] [facility] DATE CREATED AUTHOR AUTHOR'S ORGANIZ ATION 06/15/2024 [facility] DATE CREATED AUTHOR AUTHOR'S ORGANIZ ATION 06/17/2024 [facility] DATE CREATED AUTHOR AUTHOR'S ORGANIZ ATION 11/05/2024 [facility] Source Comments (unrecognize d section and content) In the event this informatio n is protected by the Federal Confidentiality of Alcohol and Drug Abuse Patient Records regulations: The Federal rules restrict any use of the information to criminally investigate or prosecute any alcohol or drug abuse patient.[facility] the event this information is protected by the Federal Confidentiality of Alcohol and Drug Abuse Patient Records regulations: The Federal rules restrict any use of the information to criminally investigate or prosecute any alcohol or drug abuse patient.[facility]In the event this information is protected by the Federal Confidentiality of Alcohol and Drug Abuse Patient Records regulations: The Federal rules restrict any use of the information to criminally investigate or prosecute any alcohol or drug abuse patient.[facility]In the event this information is protected by the Federal Confidentiality of Alcohol and Drug Abuse Patient Records regulations: The Federal rules restrict any use of the information to criminally investigate or prosecute any alcohol or drug abuse patient.[facility]In the event this information is protected by the Federal Confidentiality of Alcohol and Drug Abuse Patient Records regulations: The Federal rules restrict any use of the information to criminally investigate or prosecute any alcohol or drug abuse patient.[facility] HospitalIn the event this information is protected by the Federal Confidentiality of Alcohol and Drug Abuse Patient Records regulations: The Federal rules restrict any use of the information to criminally investigate or prosecute any alcohol or drug abuse patient.[facility] the event this information is protected by the Federal Confidentiality of Alcohol and Drug Abuse Patient Records regulations: The Federal rules restrict any use of the information to criminally investigate or prosecute any alcohol or drug abuse patient.[facility]In the event this information is protected by the Federal Confidentiality of Alcohol and Drug Abuse Patient Records regulations: The Federal rules restrict any use of the information to criminally investigate or prosecute any alcohol or drug abuse patient.[facility]In the event this information is protected by the Federal Confidentiality of Alcohol and Drug Abuse Patient Records regulations: The Federal rules restrict any use of the information to criminally investigate or prosecute any alcohol or drug abuse patient.[facility] HospitalIn the event this information is protected by the Federal Confidentiality of Alcohol and Drug Abuse Patient Records regulations: The Federal rules restrict any use of the information to criminally investigate or prosecute any alcohol or drug abuse patient.[facility]In the event this information is protected by the Federal Confidentiality of Alcohol and Drug Abuse Patient Records regulations: The Federal rules restrict any use of the information to criminally investigate or prosecute any alcohol or drug abuse patient.[facility]In the event this information is protected by the Federal Confidentiality of Alcohol and Drug Abuse Patient Records regulations: The Federal rules restrict any use of the information to criminally investigate or prosecute any alcohol or drug abuse patient.[facility]In the event this information is protected by the Federal Confidentiality of Alcohol and Drug Abuse Patient Records regulations: The Federal rules restrict any use of the information to criminally investigate or prosecute any alcohol or drug abuse patient.[facility]In the event this information is protected by the Federal Confidentiality of Alcohol and Drug Abuse Patient Records regulations: The Federal rules restrict any use of the information to criminally investigate or prosecute any alcohol or drug abuse patient.[facility]In the event this information is protected by the Federal Confidentiality of Alcohol and Drug Abuse Patient Records regulations: The Federal rules restrict any use of the information to criminally investigate or prosecute any alcohol or drug abuse patient.[facility] HospitalIn the event this information is protected by the Federal Confidentiality of Alcohol and Drug Abuse Patient Records regulations: The Federal rules restrict any use of the information to criminally investigate or prosecute any alcohol or drug abuse patient.[facility] HospitalIn the event this information is protected by the Federal Confidentiality of Alcohol and Drug Abuse Patient Records regulations: The Federal rules restrict any use of the information to criminally investigate or prosecute any alcohol or drug abuse patient.[facility] HospitalIn the event this information is protected by the Federal Confidentiality of Alcohol and Drug Abuse Patient Records regulations: The Federal rules restrict any use of the information to criminally investigate or prosecute any alcohol or drug abuse patient.[facility] HospitalIn the event this information is protected by the Federal Confidentiality of Alcohol and Drug Abuse Patient Records regulations: The Federal rules restrict any use of the information to criminally investigate or prosecute any alcohol or drug abuse patient.[facility] HospitalIn the event this information is protected by the Federal Confidentiality of Alcohol and Drug Abuse Patient Records regulations: The Federal rules restrict any use of the information to criminally investigate or prosecute any alcohol or drug abuse patient.[facility] HospitalIn the event this information is protected by the Federal Confidentiality of Alcohol and Drug Abuse Patient Records regulations: The Federal rules restrict any use of the information to criminally investigate or prosecute any alcohol or drug abuse patient.[facility] HospitalIn the event this information is protected by the Federal Confidentiality of Alcohol and Drug Abuse Patient Records regulations: The Federal rules restrict any use of the information to criminally investigate or prosecute any alcohol or drug abuse patient.[facility] HospitalIn the event this information is protected by the Federal Confidentiality of Alcohol and Drug Abuse Patient Records regulations: The Federal rules restrict any use of the information to criminally investigate or prosecute any alcohol or drug abuse patient.[facility] HospitalIn the event this information is protected by the Federal Confidentiality of Alcohol and Drug Abuse Patient Records regulations: The Federal rules restrict any use of the information to criminally investigate or prosecute any alcohol or drug abuse patient.[facility] HospitalIn the event this information is protected by the Federal Confidentiality of Alcohol and Drug Abuse Patient Records regulations: The Federal rules restrict any use of the information to criminally investigate or prosecute any alcohol or drug abuse patient.[facility] HospitalIn the event this information is protected by the Federal Confidentiality of Alcohol and Drug Abuse Patient Records regulations: The Federal rules restrict any use of the information to criminally investigate or prosecute any alcohol or drug abuse patient.[facility] HospitalIn the event this information is protected by the Federal Confidentiality of Alcohol and Drug Abuse Patient Records regulations: The Federal rules restrict any use of the information to criminally investigate or prosecute any alcohol or drug abuse patient.[facility] HospitalIn the event this information is protected by the Federal Confidentiality of Alcohol and Drug Abuse Patient Records regulations: The Federal rules restrict any use of the information to criminally investigate or prosecute any alcohol or drug abuse patient.[facility] HospitalIn the event this information is protected by the Federal Confidentiality of Alcohol and Drug Abuse Patient Records regulations: The Federal rules restrict any use of the information to criminally investigate or prosecute any alcohol or drug abuse patient.[facility] HospitalIn the event this information is protected by the Federal Confidentiality of Alcohol and Drug Abuse Patient Records regulations: The Federal rules restrict any use of the information to criminally investigate or prosecute any alcohol or drug abuse patient.[facility]In the event this information is protected by the Federal Confidentiality of Alcohol and Drug Abuse Patient Records regulations: The Federal rules restrict any use of the information to criminally investigate or prosecute any alcohol or drug abuse patient.[facility] HospitalIn the event this information is protected by the Federal Confidentiality of Alcohol and Drug Abuse Patient Records regulations: The Federal rules restrict any use of the information to criminally investigate or prosecute any alcohol or drug abuse patient.[facility] HospitalIn the event this information is protected by the Federal Confidentiality of Alcohol and Drug Abuse Patient Records regulations: The Federal rules restrict any use of the information to criminally investigate or prosecute any alcohol or drug abuse patient.[facility] HospitalIn the event this information is protected by the Federal Confidentiality of Alcohol and Drug Abuse Patient Records regulations: The Federal rules restrict any use of the information to criminally investigate or prosecute any alcohol or drug abuse patient.[facility] HospitalIn the event this information is protected by the Federal Confidentiality of Alcohol and Drug Abuse Patient Records regulations: The Federal rules restrict any use of the information to criminally investigate or prosecute any alcohol or drug abuse patient.[facility] HospitalIn the event this information is protected by the Federal Confidentiality of Alcohol and Drug Abuse Patient Records regulations: The Federal rules restrict any use of the information to criminally investigate or prosecute any alcohol or drug abuse patient.[facility] HospitalIn the event this information is protected by the Federal Confidentiality of Alcohol and Drug Abuse Patient Records regulations: The Federal rules restrict any use of the information to criminally investigate or prosecute any alcohol or drug abuse patient.[facility] HospitalIn the event this information is protected by the Federal Confidentiality of Alcohol and Drug Abuse Patient Records regulations: The Federal rules restrict any use of the information to criminally investigate or prosecute any alcohol or drug abuse patient.[facility] HospitalIn the event this information is protected by the Federal Confidentiality of Alcohol and Drug Abuse Patient Records regulations: The Federal rules restrict any use of the information to criminally investigate or prosecute any alcohol or drug abuse patient.[facility] HospitalIn the event this information is protected by the Federal Confidentiality of Alcohol and Drug Abuse Patient Records regulations: The Federal rules restrict any use of the information to criminally investigate or prosecute any alcohol or drug abuse patient.[facility] HospitalIn the event this information is protected by the Federal Confidentiality of Alcohol and Drug Abuse Patient Records regulations: The Federal rules restrict any use of the information to criminally investigate or prosecute any alcohol or drug abuse patient.[facility] [facility] the event this information is protected by the Federal Confidentiality of Alcohol and Drug Abuse Patient Records regulations: The Federal rules restrict any use of the information to criminally investigate or prosecute any alcohol or drug abuse patient.[facility] the event this information is protected by the Federal Confidentiality of Alcohol and Drug Abuse Patient Records regulations: The Federal rules restrict any use of the information to criminally investigate or prosecute any alcohol or drug abuse patient.[facility] the event this information is protected by the Federal Confidentiality of Alcohol and Drug Abuse Patient Records regulations: The Federal rules restrict any use of the information to criminally investigate or prosecute any alcohol or drug abuse patient.[facility] Reason for Visit (unrecogniz ed section and content) Reason Comments Diabetes Reason Comments URI Reason Comments Telemedicine Reason Comments Medication Request Reason Comments F/U Diabetes 3 Month Reason Comments Clinical Update Reason Comments Patient Update Insurance Informatio n Reason Comments Refill Request Reason Comments PHMA/Care Gap Outreach Reason Comments [facility] ([facility]22) Reason Comments Cardiology Follow Up No issues Reason Comments Patient Question Reason Comments CARD New Patient Consult No issues Reason Comments Patient Question Trulicity NYDIA Reason Onset Date Comments Medication Problem 09/11/2022 Reason Comments Received Outside Medical Records [facility] endocrinology consult (12/11/22) Reason Comments Follow Up Room 10 Says Pacemak er batteries are due to be depleted.ANABEL 06/07/22 [place] CAD, h/o A-Fib, PacemakerPacer Report 07/15/22ECG 06/07/22 Reason Onset Date Comments Colorectal Screening Program Assistance 01/31/20 cologuard Reason Comments Schedule Surgery EPS-PPM Change Reason Comments outside notes Reason Comments Radio Main J1 Reason Comments Appointment Rescheduled EPS-PPM Change Reason Comments Received Outside Medical Records [facility] re: Diabetes (08/28/23) Reason Comments Shoulder Injury Fall on ice at work Specialty Diagnoses / Procedures Referred By Contac t Referred To Contact Radiology Diagnoses Traumatic tear of left rotator cuff, unspecified tear extent, initial encounter Procedures IR ARTHR/ASP/INJ MAJOR JT/BURSA LEFT WO US Amna Thomas PA-C [address] [facility] [address] [place] [address] Referral ID Status Reason Start Date Expiration Date Visits Re quested Visits Authorized [id number] Open 06/11/2024 06/11/2025 1 1 Specialty Diagnoses / Procedures Referred By Contac t Referred To Contact Radiology Diagnoses Traumatic tear of left rotator cuff, unspecified tear extent, initial encounter Procedures CT SHOULDER LEFT WO CONTRAST Pratima Reardon MD [address] [facility] [address] [place] [address] Referral ID Status Reason Start Date Expiration Date Visits Re quested Visits Authorized [id number] Closed 05/31/2024 06/13/2024 1 1 Care Teams (unrecognized sec tion and content) Architecture Technician Relationship Specialty Start Date End Date Hiram Sykes MD [address] [place] [address] PCP - General Family Practice 11/19/15 Denzel Cormier I, MD [address] [place] [address] Primary Staff Physician Cardiology 07/28/18 Architecture Technician Relationship Specialty Start Date End Date Hiram Sykes MD [address] [place] [address] PCP - General Family Practice 11/19/15 Denzel Cormier I, MD [address] [place] [address] Primary Staff Physician Cardiology 07/28/18 Architecture Technician Relationship Specialty Start Date End Date Hiram Sykes MD [address] [place] [address] PCP - General Family Practice 11/19/15 Denzel Cormier I, MD [address] [facility] [address] [place] [address] Primary Staff Physician Cardiology 07/28/18 Architecture Technician Relationship Specialty Start Date End Date Hiram Sykes MD [address] [place] [address] PCP - General Family Practice 11/19/15 Denzel Cormier I, MD [address] [address] Primary Staff Physician Cardiology 07/28/18 Architecture Technician Relationship Specialty Start Date End Date Hiram Sykes MD [address] [place] [address] PCP - General Family Medicine 11/19/15 Denzel Cormier I, MD [address] [address] Primary Staff Physician Cardiology 07/28/18 Architecture Technician Relationship Specialty Start Date End Date Hiram Sykes MD [address] [place] [address] PCP - General Family Medicine 11/19/15 Denzel Cormier I, MD [address] [address] Primary Staff Physician Cardiology 07/28/18 Architecture Technician Relationship Specialty Start Date End Date Hiram Sykes MD [address] [place] [address] PCP - General Family Medicine 11/19/15 Denzel Cormier I, MD [address] [facility] [address] [place] [address] Primary Staff Physician Cardiology 07/28/18 Architecture Technician Relationship Specialty Start Date End Date Hiram Sykes MD [address] [place] [address] PCP - General Family Medicine 11/19/15 Denzel Cormier I, MD [address] [address] Primary Staff Physician Cardiology 07/28/18 Architecture Technician Relationship Specialty Start Date End Date Hiram Sykes MD [address] [place] [address] PCP - General Family Medicine 11/19/15 Denzel Cormier I, MD [address] [facility] [address] [place] [address] Primary Staff Physician Cardiology 07/28/18 Architecture Technician Relationship Specialty Start Date End Date Hiram Sykes MD [address] [place] [address] PCP - General Family Medicine 11/19/15 Denzel Cormier I, MD [address] [place] [address] Primary Staff Physician Cardiology 07/28/18 Architecture Technician Relationship Specialty Start Date End Date Hiram Sykes MD [address] [place] [address] PCP - General Family Medicine 11/19/15 Denzel Cormier I, MD [address] [facility] [address] [place] [address] Primary Staff Physician Cardiology 07/28/18 Architecture Technician Relationship Specialty Start Date End Date Hiram Sykes MD [address] [place] [address] PCP - General Family Medicine 11/19/15 Denzel Cormier I, MD [address] [address] Primary Staff Physician Cardiology 07/28/18 Architecture Technician Relationship Specialty Start Date End Date Hiram Sykes MD [address] [place] [address] PCP - General Family Medicine 11/19/15 Denzel Cormier I, MD [address] [address] Primary Staff Physician Cardiology 07/28/18 Architecture Technician Relationship Specialty Start Date End Date Hiram Sykes MD [address] [place] [address] PCP - General Family Medicine 11/19/15 Denzel Cormier I, MD [address] [address] Primary Staff Physician Cardiology 07/28/18 Architecture Technician Relationship Specialty Start Date End Date Hiarm Sykes MD [address] [place] [address] PCP - General Family Medicine 11/19/15 Denzel Cormier I, MD [address] [address] Primary Staff Physician Cardiology 07/28/18 Architecture Technician Relationship Specialty Start Date End Date Hiram Sykes MD [address] [place] [address] PCP - General Family Medicine 11/19/15 Denzel Cormier I, MD [address] [facility] [address] [place] [address] Primary Staff Physician Cardiology 07/28/18 Architecture Technician Relationship Specialty Start Date End Date Hiram Sykes MD [address] [place] [address] PCP - General Family Medicine 11/19/15 Denzel Cormier I, MD [address] [facility] [address] [place] [address] Primary Staff Physician Cardiology 07/28/18 Architecture Technician Relationship Specialty Start Date End Date Hiram Sykes MD [address] [place] [address] PCP - General Family Medicine 11/19/15 Denzel Cormier I, MD [address] [facility] [address] [place] [address] Primary Staff Physician Cardiology 07/28/18 Architecture Technician Relationship Specialty Start Date End Date Hiram Sykes MD [address] [place] [address] PCP - General Family Medicine 11/19/15 Denzel Cormier I, MD [address] [place] [address] Primary Staff Physician Cardiology 07/28/18 Architecture Technician Relationship Specialty Start Date End Date Hiram Sykes MD [address] [place] [address] PCP - General Family Medicine 11/19/15 Denzel Cormier I, MD [address] [facility] [address] [place] [address] Primary Staff Physician Cardiology 07/28/18 [place], [facility] [address] [place] [address] Pharmacist Pharmacy 10/18/22 Architecture Technician Relationship Specialty Start Date End Date Hiram Sykes MD [facility] [place] [address] PCP - General Family Medicine 11/19/15 Denzel Cormier I, MD [address] [facility] [address] [place] [address] Primary Staff Physician Cardiology 07/28/18 [place] [address] [place] [address] Pharmacist Pharmacy 10/18/22 Architecture Technician Relationship Specialty Start Date End Date Hiram Sykes MD [address] [place] [address] PCP - General Family Medicine 11/19/15 Denzel Cormier I, MD [address] [facility] [address] [place] [address] Primary Staff Physician Cardiology 07/28/18 [place], Enmanuel, [facility] [address] [place] [address] Pharmacist Pharmacy 10/18/22 Architecture Technician Relationship Specialty Start Date End Date Hiram Sykes MD [facility] [place] [address] PCP - General Family Medicine 11/19/15 Denzel Cormier I, MD [address] [facility] [address] [place] [address] Primary Staff Physician Cardiology 07/28/18 Enmanuel Masters, [place] [address] [place] [address] Pharmacist Pharmacy 10/18/22 Architecture Technician Relationship Specialty Start Date End Date Hiram Sykes MD [address] [place] [address] PCP - General Family Medicine 11/19/15 Denzel Cormier I, MD [address] [facility] [address] [place] [address] Primary Staff Physician Cardiology 07/28/18 Enmanuel Masters, [place] [address] [place] [address] Pharmacist Pharmacy 10/18/22 Architecture Technician Relationship Specialty Start Date End Date Hiram Sykes MD [facility] [place] [address] PCP - General Family Medicine 11/19/15 Denzel Cormier I, MD [address] [facility] [address] [place] [address] Primary Staff Physician Cardiology 07/28/18 Enmanuel Masters, [place] [address] [place] [address] Pharmacist Pharmacy 10/18/22 Architecture Technician Relationship Specialty Start Date End Date Hiram Sykes MD [facility] [place] [address] PCP - General Family Medicine 11/19/15 Denzel Cormier I, MD [address] [facility] [address] [place] [address] Primary Staff Physician Cardiology 07/28/18 [place] [address] [place] [address] Pharmacist Pharmacy 10/18/22 Architecture Technician Relationship Specialty Start Date End Date Hiram Sykes MD [address] [place] [address] PCP - General Family Medicine 11/19/15 Denzel Cormier I, MD [facility] [address] [address] Primary Staff Physician Cardiology 07/28/18 [place] [address] [place] [address] Pharmacist Pharmacy 10/18/22 Architecture Technician Relationship Specialty Start Date End Date Hiram Sykes MD [address] [place] [address] PCP - General Family Medicine 11/19/15 Denzel Cormier I, MD [address] [facility] [address] [place] [address] Primary Staff Physician Cardiology 07/28/18 [place] [address] [place] [address] Pharmacist Pharmacy 10/18/22 Architecture Technician Relationship Specialty Start Date End Date Hiram Sykes MD [address] [place] [address] PCP - General Family Medicine 11/19/15 Denzel Cormeir I, MD [address] [facility], [address] [place] [address] Primary Staff Physician Cardiology 07/28/18 [place] [address] [place] [address] Pharmacist Pharmacy 10/18/22 Architecture Technician Relationship Specialty Start Date End Date Hiram Sykes MD [facility] [place] [address] PCP - General Family Medicine 11/19/15 Denzel Cormier I, MD [address] [facility], [address] [place] [address] Primary Staff Physician Cardiology 07/28/18 [place] [address] [place] [address] Pharmacist Pharmacy 10/18/22 Architecture Technician Relationship Specialty Start Date End Date Hiram Sykes MD [facility] [place] [address] PCP - General Family Medicine 11/19/15 Denzel Cormier I, MD [address] [facility], [address], [address] [place] [address] Primary Staff Physician Cardiology 07/28/18 [place] [address] [place] [address] Pharmacist Pharmacy 10/18/22 Architecture Technician Relationship Specialty Start Date End Date Denzel Cormier I, MD [address] [facility], [address] [place] [address] Primary Staff Physician Cardiology 07/28/18 [place] [facility] [address] [place] [address] Pharmacist Pharmacy 10/18/22 Architecture Technician Relationship Specialty Start Date End Date Denzel Cormier I, MD [address] [facility], [facility] [address], [address] [place] [address] Primary Staff Physician Cardiology 07/28/18 [place], Enmanuel[address] [address] Pharmacist Pharmacy 10/18/22 Architecture Technician Relationship Specialty Start Date End Date Hailey Zambrano MD [address] [facility] [address] [place] [address] PCP - General Family Medicine 05/14/24 Architecture Technician Relationship Specialty Start Date End Date Hailey Zambrano MD [address] [facility] [address] [place] [address] PCP - General Family Medicine 05/14/24 Architecture Technician Relationship Specialty Start Date End Date Hailey Zambrano MD [address] [facility] [address] [place] [address] PCP - General Family Medicine 05/14/24 Architecture Technician Relationship Specialty Start Date End Date Hailey Zambrano MD [address] [facility] [address] [place] [address] PCP - General Family Medicine 05/14/24 Team Status: Active Member Role Status Dates Dr. Bambi Cisneros MD Primary Care Provider Active Team Status: Inactive Member Role Status Dates Dr. Bambi Cisneros MD Primary Care Provider Active Start: July 29, 2024 End: July 29, 2024 Dr. Bambi Cisneros MD Referring Provider Active Start: July 29, 2024 End: July 29, 2024 JOSE ALEJANDRO Matute Attending Provider Active Start: July 29, 2024 End: July 29, 2024 Team Status: Inactive Member Role Status Dates Dr. Bambi Cisneros MD Primary Care Provider Active Start: November 04, 2024 End: November 04, 2024 Dr. Bambi Cisneros MD Referring Provider Active Start: November 04, 2024 End: November 04, 2024 JOSE ALEJANDRO Matute Attending Provider Active Start: November 04, 2024 End: November 04, 2024 Scheduled Active and Recently Administ ered Medications (unrecognized section and content) Medication Order 05/12/2024 05/13/2024 05/14/2024 acetaminophen (TYLENOL) tablet 1,000 mg (COMPLETED) 1,000 mg, Oral, ONCE, 1 dose, On Fri05/14/24 at 0846, Maximum dose of acetaminophen is 4000 mg from all sources in 24 hours. 0848 (Given - Provid er: Enmanuel Peace RN) Goals (unrecognized section and content) Goals may be documented in a n alternate section FOR RECORDS PERTAINING TO PATIENTS WHO ARE OR HAVE BEEN ENROLLED IN A CHEMICAL DEPENDENCY/SUBSTANCEABUSE PROGRAM, SOME INFORMATION MAY BE OMITTED. This clinical summary was aggregated from multiple sources. Caution should be exercised in using it in the provision of clinical care. This summary normalizes information from multiple sources, and as a consequence, information in this document may materially change the coding, format and clinical context of patient data. In addition, data may be omitted in some cases. CLINICAL DECISIONS SHOULD BE BASED ON THE PRIMARY CLINICAL RECORDS. [facility]. provides no warranty or guarantee of the accuracy or completeness of information in this document.
--- NOTE | 2025-01-15 09:37 | RAD_ITS ---
PROCEDURE: HIP, UNI W/ PELVIS 2-3 VIEWS 01/15/2025 REASON FOR EXAM: PAIN. No injury. TECHNIQUE: Procedure Code: [facility] Modality: DX Procedure: HIP, UNI W/ PELVIS 2-3 VIEWS Laterality: Left COMPARISON: None. FINDINGS: BONES: No acute fracture or focal osseous lesion. JOINTS: No dislocation. Moderate hip joint space narrowing bilaterally with small lateral acetabular roof osteophytes. Preserved pubic symphysis and sacroiliac joints. SOFT TISSUES: The soft tissues are unremarkable. RAD/HIP, UNI W/ Pelvis 2-3 Views IMPRESSION: DEGENERATIVE OSTEOARTHROSIS. NO ACUTE FINDINGS. Reading Location: [id number]
[2025-01-15 11:40] LABS: AST(SGOT) 44 U/L (<=37); Alanine Aminotransfer ALT/SGPT 65 U/L (<=46); Albumin, Serum 4.4 g/dL (3.5-5.0); Alkaline Phosphatase 59 U/L (40-129); Anion Gap 12 (5-15); BUN 24 mg/dL (4-19); BUN/Creat Ratio 22.0 RATIO (10-20); Calcium,Total 9.7 mg/dL (7.6-11.0); Carbon Dioxide 21.5 mmol/L (21.0-32.0); Chloride 101 mmol/L (98-108); Cholesterol 125 mg/dL (<=200); Globulin 3.2 g/dL (2.2-4.2); Glucose 330 mg/dL (70-99); Low Density Lipoprotein Calc. 48 mg/dL; Potassium 4.9 mmol/L (3.3-5.1); Triglycerides 204 mg/dL; Very Low Density Lipoprotein 41 mg/dL (5-40); cholesterol:hdl ratio screen 3.48
[2025-01-15 12:17] LABS: Creatinine, Urine (random) 70.50 mg/dL (39.00-259.00); Microalbumin,Random Urine 62.4 mg/L (<20 mg/L)
== END | disposition home or self-care (01) ==
PROVIDERS: PCP Internal Medicine; Referring Provider Chiropractor Orthopedic; Visit Provider Nurse Practitioner Family
DX: E11.65 Type 2 diabetes mellitus with hyperglycemia (principal); S73.102A Unspecified sprain of left hip, initial encounter
CPT/HCPCS: 36415; 73502; 80053; 80061; 82043; 82570; 84443